=== PATIENT | male | born 1940 | race Caucasian/White ===

== ENCOUNTER 2019-09-19 10:54 | Emergency (ER) | payer MEDICARE, BC ==
[~2019-09-19 10:54] MED LIST: CEFP200T PO; EZET10TA20 PO
--- NOTE | 2019-09-19 12:14 | RAD ---
Chest radiograph 09/19/2019 11:54 AM INDICATION: Cough for 3 to 4 weeks COMPARISON: 08/17/2018 TECHNIQUE: Frontal and lateral views of the chest are provided. FINDINGS: The cardiomediastinal silhouette is within normal limits. There are no pleural effusions. There is no pulmonary vascular congestion. There is no pneumothorax. There is a 6 cm nodular opacity in the right lower lobe with possible cavitation and layering fluid or debris. No significant osseous abnormality is identified. IMPRESSION: 6 cm nodular opacity in the right lower lobe with possible cavitation and layering fluid or debris. Recommend CT chest for further evaluation. Electronically signed by: Niki Denson MD (09/19/2019 12:11 PM) [id number]
[2019-09-19] MEDS ORDERED: DOXY100T PO ×2 (12:30→12:38)
--- NOTE | 2019-09-19 12:30 | PHYS DOC ---
Past Medical History Past Medical History: High Cholesterol, Pneumonia Additional Past Medical Histor: GOUT (GEMMA DUMONT APRN) Past Surgical History: Tonsillectomy Additional Past Surgical Histo: SINUS, R.JAW (GEMMA DUMONT APRN) Alcohol Use: None Drug Use: None (GEMMA DUMONT APRN) Adult General Chief Complaint Chief Complaint: COUGH HPI HPI Patient is a 79 year old male, accompanied by his , who presents to the emergency department with complaints of a cough that is worse in the morning for the last 3-4 weeks. Patient states this morning he coughed up some sputum that had bright red blood in it. He denies taking any blood thinners, abdominal pain, nausea, vomiting, diarrhea, chest pain, palpitations, fever, shortness of breath, wheezing, ear pain, dizziness, fatigue, or headache. He does report nasal congestion. He denies any nosebleeds. Patient currently denies any pain at this time.All other ROS is neg unless otherwise noted in HPI. (GEMMA DUMONT APRN) Review of Systems Review of Systems See Above (GEMMA DUMONT APRN) Allergies Allergies Allergies Coded Allergies Type Severity Reaction Last Updated Verified No Known Drug Allergies 08/15/18 No (LUIS ANGEL FIELD DO) Physical Exam Physical Exam See Above Constitutional: Well developed, well nourished, no acute distress, non-toxic a ppearance. [] HENT: Normocephalic, atraumatic, bilateral external ears normal, oropharynx moist, no oral exudates, nasal turbinates erythematous and edematous bilaterally, nose congested Eyes: PERRLA, EOMI, conjunctiva normal, no discharge. [] Neck: Normal range of motion, no tenderness, supple, no stridor. [] Cardiovascular:Heart rate regular rhythm, no murmur [] Lungs & Thorax: Bilateral breath sounds clear to auscultation, Respirations even and unlabored, no retractions, no respiratory distress [] Skin: Warm, dry, no erythema, no rash. [] Back: No tenderness Extremities: No cyanosis, ROM intact, no edema. [] Neurologic: Alert and oriented X 3, no focal deficits noted. [] Psychologic: Affect normal, judgement normal, mood normal. [] (GEMMA DUMONT APRN) Current Patient Data Vital Signs Vital Signs Date Time Temp Pulse Resp B/P (MAP) Pulse Ox O2 Delivery O2 Flow Rate FiO2 09/19/19 12:40 65 20 144/80 (101) 96 Room Air 09/19/19 11:25 97.9 97.9 (LUIS ANGEL FIELD DO) EKG EKG [] (GEMMA DUMONT APRN) Radiology/Procedures Radiology/Procedures PROCEDURE: CHEST PA & LATERAL Chest radiograph 09/19/2019 11:54 AM INDICATION: Cough for 3 to 4 weeks COMPARISON: 08/17/2018 TECHNIQUE: Frontal and lateral views of the chest are provided. FINDINGS: The cardiomediastinal silhouette is within normal limits. There are no pleural effusions. There is no pulmonary vascular congestion. There is no pneumothorax. There is a 6 cm nodular opacity in the right lower lobe with possible cavitation and layering fluid or debris. No significant osseous abnormality is identified. IMPRESSION: 6 cm nodular opacity in the right lower lobe with possible cavitation and layering fluid or debris. Recommend CT chest for further evaluation. [] (GEMMA DUMONT APRN) Course & Med Decision Making Course & Med Decision Making Pertinent Labs and Imaging studies reviewed. (See chart for details) Discussed xray results with patient and his and advised of nodule found in right lower lobe, advised pt that he will need to follow up with his primary care doctor for further evaluation of this finding. Prescription written for doxycycline 100 mg po BID x10 days. URI instructions given. Pt and his verbalized an understanding of home care, medications, follow- up, and return to ED instructions and were in agreement with the plan of care. [] (GEMMA DUMONT APRN) Dragon Disclaimer Dragon Disclaimer This electronic medical record was generated, in whole or in part, using a voice recognition dictation system. (GEMMA DUMONT APRN) Departure Departure Impression: Primary Impression: Sinusitis Additional Impression: Upper respiratory infection, acute Disposition: 01 HOME, SELF-CARE Condition: STABLE Referrals: Ross POSEY MD (PCP) Patient Instructions: Sinusitis, Elao-ej-Qedr, Upper Respiratory Infection, Adult, Fkla-yv-Mhpv Additional Instructions: Fill prescription(s) and use as directed. Recommend use of a Cool mist humidifier in room at bedtime. Alternate Tylenol or ibuprofen as needed for pain/fever. Recommend use of lzbu-cfr-sodzzxb Flonase nasal spray, 2 sprays each side of her nose once in the morning to help decreased nasal inflammation. Increase clear fluids. Avoid airway triggers such as smoke, fragrance, dust, and pollen. May take azzy-xej-lrtcmzp cough suppressants as needed. Follow-up with your primary care doctor if symptoms persist, return to the ER if symptoms worsen. Scripts Doxycycline Hyclate (DOXYCYCLINE HYCLATE) 100 Mg Tablet 1 TAB PO BID, #14 TAB 0 Refills Prov: GEMMA DUMNOT APRN 09/19/19 Attending Signature Attending Signature I have reviewed the PA/PHYSICAL THERAPIST CENTER MANAGER's note and plan of care. I was available for consultation as needed during the patient's visit in the emergency department. I agree with the clinical impression, plan, and disposition. (LUIS ANGEL FIELD DO) Problem Qualifiers Primary Impression: Sinusitis Sinusitis location: unspecified location Chronicity: acute Recurrence: not specified as recurrent Qualified Codes: J01.90 - Acute sinusitis, unspecified GEMMA DUMONT FINGER COBBLER Sep 19, 2019 12:30 LUIS ANGEL FIELD DO Sep 20, 2019 11:06
[2019-09-19 12:40] VITALS: BP 144/80
== END 2019-09-19 12:40 | disposition home or self-care (01) ==
LOC: ER 10:54
DX: J01.90 Acute sinusitis, unspecified (principal); J06.9 Acute upper respiratory infection, unspecified; E78.00 Pure hypercholesterolemia, unspecified; M10.9 Gout, unspecified
CPT/HCPCS: 71046; 99284

== ENCOUNTER → 2019-10-04 | Outpatient (CLI) | payer MEDICARE, BC ==
[2019-09-19 12:40] VITALS: BP 144/80
[~2019-10-04] MED LIST changes: +DOXY100T PO
--- NOTE | 2019-10-04 17:21 | KCIC ---
EXAM: CT OF THE CHEST WITHOUT CONTRAST. HISTORY: Lung nodule, smoking history. TECHNIQUE: Computed tomography of the chest was performed without intravenous contrast. One or more of the following individualized dose reduction techniques were utilized for this examination: 1. Automated exposure control. 2. Adjustment of the mA and/or kV according to patient size. 3. Use of iterative reconstruction technique. COMPARISON: 09/19/2019. FINDINGS: Images of the upper abdomen reveal no acute abnormality. Bone windows reveal no suspicious lesions. There are no pathologically enlarged mediastinal or axillary lymph nodes. Calcified mediastinal lymph nodes are likely secondary to old granulomatous disease. There is no pleural or pericardial effusion. The heart is not enlarged. There are atherosclerotic calcifications of the coronary arteries. A cavitary mass in the right upper lobe bulges the major fissure anteriorly. It measures 4.0 x 2.9 cm and has spiculated margins posteriorly. It contains an intracavitary mass measuring 2.2 cm. There are multiple tiny uncalcified nodules in the upper lobes. One on image 76 in the right upper lobe measures only 3 mm. Another nodule along the right minor fissure measures 6 x 4 mm and likely represents a benign intrafissural lymph node. Another tiny nodule in the left upper lobe measures only 2 mm on image 44. IMPRESSION: 1. 4.0 x 2.9 cm cavitary mass within the right lower lobe is concerning for malignancy. Fungal lesions such as blastomycosis are a less likely possibility. Biopsy is recommended if the diagnosis is not already known. 2. Tiny uncalcified nodules elsewhere are indeterminate and may be postinflammatory. Follow-up is recommended in 3 months. Electronically signed by: Kali Randall MD (10/04/2019 5:18 PM) [facility]
== END | disposition home or self-care (01) ==
LOC: KCIC CT 10:49
PROVIDERS: ATTEND Family Medicine
DX: R91.8 Other nonspecific abnormal finding of lung field (principal)
CPT/HCPCS: 71250

== ENCOUNTER → 2019-12-03 | Outpatient (CLI) | payer MEDICARE, BC ==
--- NOTE | 2019-12-03 09:39 | KCIC ---
Examination: CT CHEST WO CONTRAST History: Cavitary mass follow-up. Comparison/Correlation: 10/04/2019 CT chest without contrast Findings: Axial images of the chest were obtained without contrast. Sagittal and coronal reformatted images were provided. Coronary arterial calcifications are present. Mitral annular calcifications evident. There is a 4.7 cm x 4.2 cm x 5.8 cm longitudinal mass involving the right lower lobe along the posterior margin of the major fissure. This has increased in size since the prior exam. Punctate noncalcified nodules throughout the lung koch bilaterally present without definite change. No enlarged thoracic lymph nodes. The tracheobronchial tree is unremarkable. No pleural or pericardial effusion. The visualized upper abdomen is unremarkable. Bony structures unremarkable. Impression: Interval increase in size of the patient's known right lung base mass lesion. Increase in size is by 1.2 cm x 1.6 cm is noted in the axial plane. Previously seen aerated cavitary component has been obliterated by the mass lesion. While this finding probably represents an infectious process although underlying neoplastic etiology is not excluded. PQRS Compliance Statement: One or more of the following individualized dose reduction techniques were utilized for this examination: 1. Automated exposure control 2. Adjustment of the mA and/or kV according to patient size 3. Use of iterative reconstruction technique Electronically signed by: Avila Byrnes MD (12/03/2019 9:36 AM) [id number]
== END | disposition home or self-care (01) ==
LOC: KCIC CT 08:30
PROVIDERS: ATTEND Internal Medicine Pulmonary Disease
DX: R91.8 Other nonspecific abnormal finding of lung field (principal); I25.10 Atherosclerotic heart disease of native coronary artery without angina pectoris
CPT/HCPCS: 71250

== ENCOUNTER → 2020-03-24 | Outpatient (CLI) | payer MEDICARE, BC ==
--- NOTE | 2020-03-24 11:16 | KCIC ---
CT CHEST WO CONTRAST Indication: Right lower lobe abnormality Technique: Noncontrast CT imaging was performed of the chest, multiplanar reconstruction images submitted. One or more of the following individualized dose reduction techniques were utilized for this examination: 1. Automated exposure control 2. Adjustment of the mA and/or kV according to patient size 3. Use of iterative reconstruction technique. Comparison: December 03, 2019. FINDINGS: There is persistent focus of noncalcified right lower lobe masslike density abutting the major fissure. This measures about 5 cm AP by 3.9 cm transverse by 5.6 cm CC versus previously 4 cm AP by 4.2 cm transverse by about 5.3 cm cc. There are several new larger right lower lobe nodules, largest of these about 0.5 cm. Nodule closer to the larger lesion just posteriorly measures about 0.6 cm versus previously 0.4 cm. There is increased nodularity/node along the right major fissure image 63 up to about 0.7 cm. There are again some tiny micronodules of the right upper lobe in the branching distribution. There is now very minimal dependent right pleural fluid. There is no pneumothorax. There is some coronary calcification. There is again some mitral annular calcification. Tubular ascending thoracic aorta is again somewhat ectatic about 3.8 cm. No new significant lymphadenopathy is identified of the chest. IMPRESSION: 1. There is persistent right lower lobe masslike density abutting the major fissure with some variable change in dimensions as stated, not significantly smaller. There are some new noncalcified right lower lobe nodules as stated, also new very small right pleural effusion. While again findings could be on a postinfectious basis, neoplasm is not excluded by imaging. Consideration of biopsy is advised if this has not been performed. There are again some micronodules of the right upper lobe as seen previously as may be sequela of bronchiolitis from various etiologies. Electronically signed by: Jean-Claude Hill MD (03/24/2020 11:13 AM) [id number]
== END | disposition home or self-care (01) ==
LOC: KCIC 09:50
PROVIDERS: ATTEND Internal Medicine Pulmonary Disease
DX: I77.810 Thoracic aortic ectasia (principal); R91.8 Other nonspecific abnormal finding of lung field; J90 Pleural effusion, not elsewhere classified; J98.4 Other disorders of lung; I25.10 Atherosclerotic heart disease of native coronary artery without angina pectoris
CPT/HCPCS: 71250

== ENCOUNTER → 2020-05-12 | Outpatient (CLI) | payer MEDICARE, BC ==
--- NOTE | 2020-05-12 13:34 | KCIC ---
EXAM: CT Chest without IV contrast INDICATION: Reason: LUNG MASS FOLLOW UP / Spl. Instructions: / History: TECHNIQUE: Multi-detector row CT images were acquired from the thoracic inlet through the upper abdomen without the use of IV contrast. Sagittal and coronal images were acquired from the transaxial data. All CT scans performed at this facility utilize dose optimization techniques as appropriate to the exam, including the following: Automated exposure control and adjustment of the mA and/or KV according to patient size (this includes techniques or standardized protocols for targeted exams where dose is indication/reason for exam). COMPARISON: Noncontrast chest CT 03/24/2020 FINDINGS: The absence of IV contrast limits evaluation of soft tissue pathology. CARDIOVASCULAR: Upper normal ascending thoracic aortic caliber at 3.9 cm. No intramural hematoma. Normal heart size. Mild coronary calcifications. Tortuous descending thoracic aorta. MEDIASTINUM & IRENE: No adenopathy or masses. LUNGS: Dominant left lower lobe spiculated lung mass retracting the major fissure now measures 6.0 x 5.2 x 4.6 cm (cc by mediolateral by AP), compared with 5.6 x 4.7 x 4.9 cm at the comparable levels (images 28 of series 4 and 56 of series 5 this exam compared with image 48 of series 4 and image 81 of series 5 on the prior study). Increase in nodular thickening along the minor fissure is also apparent, best illustrated on coronal image 21 of series 4 this exam compared with image 34 of series 4 on the prior study. 3 mm peripheral left upper lobe lung nodule (image 41 of series 2). Stable micronodules in the right upper lobe as described previously. PLEURAL SPACE: Increasing small right pleural effusion, now up to 3 cm in depth, compared with 0.7 cm previously. OSSEOUS & SOFT TISSUE: Unremarkable ABDOMEN: The visualized portions of the upper abdomen are unremarkable. IMPRESSION: 1. Gradually enlarging right lower lobe lung mass with developing nodular thickening along the minor fissure, and an enlarging right pleural effusion. No developing mediastinal or hilar adenopathy on noncontrast chest CT. 2. Similar-appearing micronodules primarily in the right upper lobe but to a lesser extent, present in the left upper lobe as well. Electronically signed by: Brenton Bonilla MD (05/12/2020 1:32 PM) [place] [id number]
== END ==
LOC: KCIC CT 08:42
PROVIDERS: ATTEND Internal Medicine Pulmonary Disease
DX: R91.8 Other nonspecific abnormal finding of lung field (principal); J90 Pleural effusion, not elsewhere classified
CPT/HCPCS: 71250

== ENCOUNTER 2020-05-25 08:42 | Outpatient (CLI) | payer MEDICARE, BC ==
[2020-05-25] VITALS (12 sets, daily range): BP systolic 93–136; BP diastolic 60–78
[~2020-05-25] VITALS: Ht 182.9 cm; Wt 73.5 kg
[2020-05-25 09:23] LABS: BASO % 1 % (0-3); EOS # 0.1 x10^3/uL (0.0-0.7); EOS % 4 % (0-3); HEMATOCRIT 42.8 % (39.0-53.0); HEMOGLOBIN 14.5 g/dL (13.0-17.5); LYMPH # 0.8 x10^3/uL (1.0-4.8); LYMPH % 21 % (24-48); MEAN CORPUSCULAR HEMOGLOBIN 32 pg (25-35); MEAN CORPUSCULAR HGB CONC 34 g/dL (31-37); MEAN CORPUSCULAR VOLUME 94 fL (79-100); MONO # 0.4 x10^3/uL (0.0-1.1); MONO % 11 % (0-9); NEUT # 2.4 x10^3/uL (1.8-7.7); NEUT % 63 % (31-73); PLATELET COUNT 147 x10^3/uL (140-400); RED BLOOD COUNT 4.57 x10^6/uL (4.30-5.70); RED CELL DISTRIBUTION WIDTH 14.2 % (11.5-14.5); WHITE BLOOD COUNT 3.8 x10^3/uL (4.0-11.0)
[2020-05-25 09:33] LABS: PROTHROMBIN TIME PATIENT 13.1 SEC (11.7-14.0)
[2020-05-25] MEDS ORDERED: LIDOCAINE WITH 8.4% SOD BICARB 3 ML DISP.SYRIN. ONE ×2 (10:40→10:41)
[2020-05-25] MEDS ORDERED: MIDAZOLAM HCL/PF 2 MG/2 ML VIAL. ONE (11:19)
[2020-05-25] MEDS ORDERED: fentaNYL PF VIAL 100 MCG/2 ML VIAL ONE (11:19)
[2020-05-25] MEDS ORDERED: fentaNYL PF VIAL 100 MCG/2 ML VIAL IV ONE (11:45)
[2020-05-25] MEDS ORDERED: MIDAZOLAM HCL/PF 2 MG/2 ML VIAL. IV ONE (11:45)
[2020-05-25] MEDS ORDERED: LIDOCAINE WITH 8.4% SOD BICARB 3 ML DISP.SYRIN. IJ ONE (11:45)
--- NOTE | 2020-05-25 12:29 | RAD ---
05/25/2020 10:23 AM Procedure: CT-guided biopsy, right lower lobe mass Clinical Indication: Right lung mass Discussion: The procedure was explained in its entirety to the patient and his , by myself, including a discussion of the risks, benefits and commonly accepted alternatives to the procedure, as well as the expected consequences of no therapy whatsoever. Discussion of the risks included, but was not limited to, those that are most frequent and those that are rare but possibly severe or life-threatening, as well as the possibility of unforeseen complications. All elements of maximal sterile barrier technique including the use of a cap, mask, sterile gown, sterile gloves, large sterile sheet, appropriate hand hygiene, and 2% chlorhexidine for cutaneous antisepsis (or acceptable alternative antiseptic per current guidelines) were followed for this procedure. CT imaging redemonstrates a rounded mass in the right lower lobe. Associated pleural effusion is seen. The overlying skin was prepped and draped as described. 1% lidocaine was administered for local anesthesia. Under intermittent CT guidance a 17-gauge needles advanced to the mass. Core biopsy samples were obtained and divided amongst formalin and a sterile cup for culture per ordering physician request. Needle was removed. Manual pressure was held. No immediate complications were identified. The procedures performed under conscious sedation including continuous cardiopulmonary monitoring via dedicated sedation nurse. Eswe-cd-xbeb sedation time: 22 minutes Impression: CT-guided biopsy, right lower lobe mass PQRS Compliance Statement: One or more of the following individualized dose reduction techniques were utilized for this examination: 1. Automated exposure control 2. Adjustment of the mA and/or kV according to patient size 3. Use of iterative reconstruction technique
--- NOTE | 2020-05-25 14:31 | RAD ---
EXAM: PORTABLE CHEST 1V INDICATION: Reason: post right lung biopsy / Spl. Instructions: / History: . TECHNIQUE: Single view COMPARISON: 09/19/2019 chest x-ray FINDINGS: The heart size is normal. Great vessels again show tortuosity of the thoracic aorta. There is no hilar or mediastinal mass. Left lung is clear. Right lung shows lower lung volumes with similar opacity in the inferior right lung with additional density along the fissure suggesting a small right pleural effusion. No pneumothorax is however evident. There are no significant osseous abnormalities. IMPRESSION: No evidence of pneumothorax status post right lung biopsy with residual opacity at the right lung base, representing combination of a right lung mass and pleural effusion. Electronically signed by: Brenton Bonilla MD (05/25/2020 2:28 PM) [id number]
--- NOTE | 2020-05-25 14:32 | NUR ---
Discharge Note: RADHA BENITES Discharge instructions and discharge home medications reviewed with Patient and a copy given. All questions have been answered and understanding verbalized. The following instructions and handouts were given: lung biopsy and moderate sedation Discontinued lines and drains: Peripheral IV intact. Patient discharged to Home or Self Care withSpousevia Wheelchair
--- NOTE | 2020-05-29 19:07 | PATHOLOGY ---
[facility] Accession Number: [id number] . 01 Material submitted: . lung - RIGHT LUNG NODULE CORE BIOPSY. Modifiers: right . 01 Clinical history: . RIGHT LUNG NODULE . 02 Diagnosis: Lung tissue, right lung nodule needle biopsies: - ADENOCARCINOMA, MODERATELY TO FOCALLY POORLY DIFFERENTIATED. SEE COMMENT. (JPM:machinist helper marine; 05/29/2020) R 05/29/2020 1829 Local . 02 Comment: Sections of the right lung nodule needle biopsy reveal a malignant epithelial neoplasm. The tumor cells form irregular glandular structures which infiltrate a reactive and inflamed desmoplastic stroma. There is focal papillary clustering and branching of tumor cells within some of the glands. Tumor cells focally are present in solid nests and have a spindle cell appearance. The tumor cells have ample amounts of eosinophilic cytoplasm, and possess enlarged, moderately to focally markedly pleomorphic hyperchromatic nuclei containing prominent nucleoli. Mitotic figures are present. The tumor measures up to 1.2-1.3 cm in greatest dimension on the glass slide. A panel of immunoperoxidase stains is obtained on block A1 and yields the following results: . Cytokeratin 7: Tumor cells positive. Cytokeratin 20: Tumor cells negative. TTF-1: Tumor cells focally positive. Napsin A: Tumor cells focally positive. P40: Tumor cells negative. CK5/6: Tumor cells focally positive. . The morphologic and immunophenotypic findings are supportive of the diagnosis of a moderately to poorly differentiated pulmonary adenocarcinoma. The case is also examined by Dr. Stock, who concurs with the diagnosis. Results to be discussed with Dr Covarrubias. (JPM:ritchie; 05/29/2020) . . Special stains performed: Immunoperoxidase stains performed; CK7, CK20, TTF-1, Napsin A, p40 and CK5/6. . 02 Electronically signed: . Gene Khan MD, Pathologist NPI- [id number] . 01 Gross description: . Received in formalin labeled "Giuseppe Dickinson, right lung biopsy" are three fragments of marcum-white to red-brown soft tissue measuring 0.2-1.3 cm in length and 0.1 cm in diameter. The pieces are submitted in cassettes A1-A3. ([facility]; 05/25/2020) [facility] 05/25/2020 1728 Local . 02 Pathologist provided ICD-10: C34.91 . 02 CPT . 021229, C29508, [id number] Specimen Comment: A courtesy copy of this report has been sent to [phone] Specimen Comment: Report sent to Performed at: 01 [facility] [address], [place] [id number] MD Marcelino Coley MD Phone: [phone] Performed at: 02 [facility] [address] [place], [place] [id number] MD Gene Khan MD Phone: [phone]
== END 2020-05-25 14:20 ==
LOC: INTRAD 08:42
PROVIDERS: ATTEND Internal Medicine Pulmonary Disease
DX: C34.91 Malignant neoplasm of unspecified part of right bronchus or lung (principal); R91.1 Solitary pulmonary nodule; E78.00 Pure hypercholesterolemia, unspecified; Z87.891 Personal history of nicotine dependence; Z79.899 Other long term (current) drug therapy; Z79.01 Long term (current) use of anticoagulants
CPT/HCPCS: 32405; 36415; 71045; 77012; 85025; 85610; 85730; 87071; 87075; 87102; 87116; 99152; J2250; J3010; J3490; 99153

== ENCOUNTER 2020-06-09 11:47 | Outpatient (CLI) | payer MEDICARE, BC ==
[~2020-06-09] VITALS: Ht 185.4 cm; Wt 72.6 kg
[~2020-06-09 11:47] MED LIST changes: -GADOTERATE 7.5 MMOL/15ML VIAL. IVP ONE
[2020-06-09] MEDS ORDERED: LIDOCAINE WITH 8.4% SOD BICARB 3 ML DISP.SYRIN. ONE (11:48)
[2020-06-09] MEDS ORDERED: LIDOCAINE WITH 8.4% SOD BICARB 3 ML DISP.SYRIN. INJ ONE (12:00)
[2020-06-09 12:38] VITALS: BP 135/67
[2020-06-09 12:48] VITALS: BP 135/82
[2020-06-09 12:55] VITALS: BP 132/78
[2020-06-09 13:10] VITALS: BP 125/81
[2020-06-09 13:25] VITALS: BP 117/84
--- NOTE | 2020-06-09 13:40 | NUR ---
pt discharged to home with family in private vehicle. discharge instructions reviewed with pt and family
--- NOTE | 2020-06-09 13:45 | RAD ---
Ultrasound Guided Thoracentesis, right side Indication: Adult male with history of lung cancer and right pleural effusion. Sedation: Local anesthesia only. Sterility: The procedure was performed in its entirety using appropriate elements of sterile technique. Technique and Findings: Following informed consent, the patient was prepped and draped in the usual sterile fashion. Ultrasound interrogation of the area of interest was performed revealing the presence of a pleural fluid collection. 1% Lidocaine was used to achieve local anesthesia over the area of interest. A small dermatotomy was made and a 5F Knp-x-mmhllneo catheter was advanced under ultrasound guidance into the pleural space and 410 cc's of slightly turbid pink fluid was removed. The catheter was then removed and hemostasis was achieved with manual compression. Impression: US thoracentesis as described.
--- NOTE | 2020-06-09 16:39 | RAD ---
CHEST AP ONLY Clinical indications: Status post thoracentesis. Lung infiltrate and effusion. Follow-up study. COMPARISON: May 25, 2020. Findings: Right-sided pleural effusion and right lower lung zone consolidative infiltrate are unchanged. No pneumothorax is seen. Left lung field remains clear. The heart size and mediastinum are stable. Old healed right clavicular fracture is seen. IMPRESSION: No pneumothorax. Electronically signed by: Leonard Eastman MD (06/09/2020 4:36 PM) [id number]
== END 2020-06-09 13:42 | disposition home or self-care (01) ==
LOC: INTRAD 11:47
PROVIDERS: ATTEND Internal Medicine Hematology & Oncology
DX: C34.91 Malignant neoplasm of unspecified part of right bronchus or lung (principal); J90 Pleural effusion, not elsewhere classified; E78.00 Pure hypercholesterolemia, unspecified; Z87.891 Personal history of nicotine dependence; Z85.118 Personal history of other malignant neoplasm of bronchus and lung; Z79.899 Other long term (current) drug therapy
CPT/HCPCS: 32555; 71045; C1892; J3490

== ENCOUNTER → 2020-06-09 | Outpatient (CLI) | payer MEDICARE, BC ==
[2020-05-25 13:39] VITALS: BP 117/71
[~2020-06-09] MED LIST changes: +GADOTERATE 7.5 MMOL/15ML VIAL. IVP ONE
[2020-06-09 11:15] LABS: CREATININE 1.3 mg/dL (0.7-1.3); GFR 53.4
--- NOTE | 2020-06-09 14:37 | RAD ---
MRI of the Brain without and with Contrast 06/09/2020 Clinical History: Lung cancer. Technique: Unenhanced T1-weighted sagittal and axial and FLAIR, T2-weighted, gradient echo and diffusion-weighted axial images of the brain were obtained. After the intravenous administration of 15 cc of DOTAREM, enhanced T1-weighted axial, sagittal and coronal images of the brain were obtained. Findings: There is generalized parenchymal atrophy. Patchy and small focal areas of abnormally increased signal intensity are seen within the periventricular and subcortical white matter of both cerebral hemispheres on the FLAIR and T2-weighted images consistent with areas of small vessel ischemic disease. No acute parenchymal abnormality is seen. No abnormal area of parenchymal contrast enhancement is noted. No extra-axial fluid collection is seen. There is no MRI evidence of acute ischemia/infarction. A small oval-shaped enhancing nodule is seen involving the left internal auditory canal. This measures 4 mm in greatest diameter. 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 The right IAC is within normal limits. Mild mucosal thickening is seen scattered throughout the paranasal sinuses. A 1 cm mucous retention cyst is involving the right maxillary sinus. There are minimal bilateral mastoid effusions. Normal flow voids are seen within the major vascular structures surrounding the brain parenchyma. Impression: 1. A 4 mm enhancing nodule is seen within the left internal auditory canal consistent with a vestibular schwannoma (acoustic neuroma). 2. No acute parenchymal abnormality is seen. There is no MRI evidence of metastatic disease involving the brain parenchyma. Electronically signed by: Wilfredo Hale MD (06/09/2020 2:34 PM) [id number]
--- NOTE | 2020-06-09 17:10 | RAD ---
EXAMINATION: PET W CT SKULL TO MIDTHIGH HISTORY: Lung cancer initial staging COMPARISON/CORRELATION: 05/12/2020 CT chest without contrast FINDINGS: Net dose 12.48 mCi F-18 FDG was administered intravenously for purposes of PET/CT exam. Blood glucose level at the time of radiotracer administration was 79 mg/dL. Imaging was performed from the skull base to the proximal thighs. Hepatic reference uptake is SUV max of 2.4 . Uptake of radiotracer involving the partially visualized head and neck is unremarkable. Uptake is noted diffusely involving the manubrium with SUV max of 6.7. Lytic destructive findings of the manubrium noted. Sternum is intact. Incidental note is made of an old right clavicular fracture. Intense uptake involving the patient's known right lung base mass with SUV max of 10.6. Anterior and superior to this mass, is curvilinear scarring noted with SUV max of 1.7. There is a small focus of uptake anterior thoracic spine on axial image 124 with SUV max of 3.2. This corresponds to a 0.9 cm x 0.6 cm density of indeterminate significance. Moderate-sized right pleural effusion is present. Punctate nodules involving the right lung base again seen. Mild right posterior basilar atelectasis. Minimal punctate nodularity involving the left lateral lung field again seen. Uptake involving the abdomen and pelvis is unremarkable. Small focus of mild uptake involving the right upper pelvis is artifactual in appearance. Right renal lower pole 0.3 cm diameter nonobstructive calculus is present. Abdominal aortic diameter is unremarkable. Diverticulosis of the colon is present. Inguinal hernias containing omental fat. Degenerative changes are noted at multiple levels of the cervical and lumbar spine in particular. IMPRESSION: Intense uptake corresponding to the patient's known right lung basilar mass. Uptake corresponding to the manubrium were permeative destructive findings presumably related to metastasis is present. Small indeterminate focus of borderline uptake is noted anterior to the thoracic spine. Right pleural effusion. Punctate pulmonary nodules are present and unchanged. Nonobstructive left renal calculus. PQRS Compliance Statement: One or more of the following individualized dose reduction techniques were utilized for this examination: 1. Automated exposure control 2. Adjustment of the mA and/or kV according to patient size 3. Use of iterative reconstruction technique Electronically signed by: Avila Byrnes MD (06/09/2020 5:07 PM) [place] [id number]
== END | disposition home or self-care (01) ==
LOC: PETSC 10:21
PROVIDERS: ATTEND Internal Medicine Hematology & Oncology
DX: C34.31 Malignant neoplasm of lower lobe, right bronchus or lung (principal)
CPT/HCPCS: 36415; 70553; 78815; 82565; 84520; A9552; A9575

== ENCOUNTER → 2020-06-26 | Outpatient (CLI) | payer MEDICARE, BC ==
[2020-06-09 13:25] VITALS: BP 117/84
[2020-06-26 10:47] LABS: BASO % 1 % (0-3); EOS # 0.1 x10^3/uL (0.0-0.7); EOS % 2 % (0-3); HEMATOCRIT 43.9 % (39.0-53.0); HEMOGLOBIN 14.5 g/dL (13.0-17.5); LYMPH # 0.8 x10^3/uL (1.0-4.8); LYMPH % 17 % (24-48); MEAN CORPUSCULAR HEMOGLOBIN 31 pg (25-35); MEAN CORPUSCULAR HGB CONC 33 g/dL (31-37); MEAN CORPUSCULAR VOLUME 95 fL (79-100); MONO # 0.5 x10^3/uL (0.0-1.1); MONO % 11 % (0-9); NEUT # 3.2 x10^3/uL (1.8-7.7); NEUT % 70 % (31-73); PLATELET COUNT 154 x10^3/uL (140-400); RED BLOOD COUNT 4.64 x10^6/uL (4.30-5.70); RED CELL DISTRIBUTION WIDTH 13.9 % (11.5-14.5); WHITE BLOOD COUNT 4.5 x10^3/uL (4.0-11.0)
[2020-06-26 10:51] LABS: CALCIUM 8.9 mg/dL (8.5-10.1); CREATININE 1.3 mg/dL (0.7-1.3); GFR 53.4; POTASSIUM 4.4 mmol/L (3.5-5.1)
[2020-06-26 10:57] LABS: ALBUMIN 3.4 g/dL (3.4-5.0); ALBUMIN/GLOBULIN RATIO 0.9 (1.0-1.7); TOTAL BILIRUBIN 0.3 mg/dL (0.2-1.0)
== END ==
LOC: ONCLAB 10:30
PROVIDERS: ATTEND Internal Medicine Hematology & Oncology
DX: C34.31 Malignant neoplasm of lower lobe, right bronchus or lung (principal)
CPT/HCPCS: 36415; 80053; 85025

== ENCOUNTER 2020-07-26 08:32 | Outpatient (CLI) | payer MEDICARE, BC ==
[2020-07-26] VITALS (8 sets, daily range): BP systolic 107–134; BP diastolic 51–85
[~2020-07-26] VITALS: Ht 182.9 cm; Wt 70.3 kg
[2020-07-26] MEDS ORDERED: ceFAZolin SODIUM IV Push 1 GM VIAL. IVP ONE ×2 (08:45→09:17)
[2020-07-26] MEDS ORDERED: fentaNYL PF VIAL 100 MCG/2 ML VIAL IV ONE (09:15)
[2020-07-26] MEDS ORDERED: LIDOCAINE 1%/EPI 1:100,000 20 ML VIAL. SQ ONE (09:15)
[2020-07-26] MEDS ORDERED: MIDAZOLAM HCL/PF 2 MG/2 ML VIAL. IV ONE (09:15)
[2020-07-26] MEDS ORDERED: MIDAZOLAM HCL/PF 2 MG/2 ML VIAL. ONE (09:17)
[2020-07-26] MEDS ORDERED: fentaNYL PF VIAL 100 MCG/2 ML VIAL ONE (09:17)
[2020-07-26 09:28] LABS: CALCIUM 9.3 mg/dL (8.5-10.1); CREATININE 1.1 mg/dL (0.7-1.3); GFR 64.6; POTASSIUM 4.3 mmol/L (3.5-5.1)
[2020-07-26 09:33] LABS: BASO % 1 % (0-3); EOS # 0.1 x10^3/uL (0.0-0.7); EOS % 2 % (0-3); HEMATOCRIT 44.2 % (39.0-53.0); HEMOGLOBIN 14.9 g/dL (13.0-17.5); LYMPH # 0.7 x10^3/uL (1.0-4.8); LYMPH % 15 % (24-48); MEAN CORPUSCULAR HEMOGLOBIN 32 pg (25-35); MEAN CORPUSCULAR HGB CONC 34 g/dL (31-37); MEAN CORPUSCULAR VOLUME 94 fL (79-100); MONO # 0.5 x10^3/uL (0.0-1.1); MONO % 11 % (0-9); NEUT # 3.4 x10^3/uL (1.8-7.7); NEUT % 71 % (31-73); PLATELET COUNT 197 x10^3/uL (140-400); RED CELL DISTRIBUTION WIDTH 14.1 % (11.5-14.5); WHITE BLOOD COUNT 4.8 x10^3/uL (4.0-11.0)
[2020-07-26 09:47] LABS: PROTHROMBIN TIME PATIENT 12.7 SEC (11.7-14.0)
[2020-07-26] MEDS ORDERED: LIDOCAINE 1%/EPI 1:100,000 20 ML VIAL. ONE (09:52)
--- NOTE | 2020-07-26 11:54 | RAD ---
Procedure: Ultrasound and fluoroscopically guided placement of right internal jugular power port.. 07/26/2020 9:50 AM Clinical Indication: Cancer Treatment Sedation: Conscious sedation was administered for 30 minutes. The patient was monitored by a qualified independent observer throughout the time of sedation. Please refer to the medical record for exact doses of medications utilized to achieve moderate sedation. Fluoroscopy time: 0.5 minutes Dose area product: 1 Gycm2 Consent: The procedure was explained in its entirety to the patient or the patients designated instruments sales representative by a member of the treatment team, including a discussion of the risks, benefits and commonly accepted alternatives to the procedure, as well as the expected consequences of no therapy whatsoever. Discussion of the risks included, but was not limited to, those that are most frequent and those that are rare but possibly severe or life-threatening, as well as the possibility of unforeseen complications. Technique and Findings: All elements of maximal sterile barrier technique including the use of a cap, mask, sterile gown, sterile gloves, large sterile sheet, appropriate hand hygiene, and 2% chlorhexidine for cutaneous antisepsis (or acceptable alternative antiseptic per current guidelines) were followed for this procedure. Following informed consent, and a timeout procedure, the patient was prepped and draped in the usual sterile fashion. Ultrasound interrogation of the right neck revealed patency and compressibility of the right internal jugular vein. A 21-gauge micropuncture was then used to gain access to this vein under ultrasound guidance. A hard copy ultrasound image was recorded. The needle was exchanged over a wire for a sheath. A 1 inch incision was made several centimeters inferior to the venotomy site. A catheter was tunneled from this site dermatotomy site in the neck. Catheter was advanced through peel-away sheath such that its tip was in the proximal right atrium with the patient supine. The catheter was trimmed to length and connected to the port reservoir. The port was found to flush and aspirate normally. The wound was closed in layers using 4-0 Vicryl suture. Sterile dressings were applied. Impression: Successful ultrasound and fluoroscopically guided placement of a right internal jugular PowerPort
--- NOTE | 2020-07-26 12:49 | NUR ---
Discharge Note: RADHA BENITES Discharge instructions and discharge home medications reviewed with Spouse and a copy given. All questions have been answered and understanding verbalized. The following instructions and handouts were given: implanted port instructions,adult moderate sedation Discontinued lines and drains: Peripheral IV intact. Patient discharged to Home or Self Care withSpousevia Wheelchair
== END 2020-07-26 12:45 | disposition home or self-care (01) ==
LOC: INTRAD 08:32
PROVIDERS: ATTEND Internal Medicine Hematology & Oncology
DX: C34.31 Malignant neoplasm of lower lobe, right bronchus or lung (principal); E78.00 Pure hypercholesterolemia, unspecified; M19.90 Unspecified osteoarthritis, unspecified site; Z85.46 Personal history of malignant neoplasm of prostate; Z87.891 Personal history of nicotine dependence; Z79.899 Other long term (current) drug therapy; Z98.890 Other specified postprocedural states
CPT/HCPCS: 36415; 36561; 76937; 77001; 80048; 85025; 85610; 99152; 99153; C1751; C1892; J0690; J2250; J3010; J3490

== ENCOUNTER → 2020-07-27 | Outpatient (CLI) | payer MEDICARE, BC ==
[2020-07-26 12:30] VITALS: BP 129/85
[2020-07-27 08:51] LABS: BASO % 1 % (0-3); CALCIUM 9.2 mg/dL (8.5-10.1); CREATININE 1.2 mg/dL (0.7-1.3); EOS # 0.1 x10^3/uL (0.0-0.7); EOS % 2 % (0-3); GFR 58.4; HEMATOCRIT 43.6 % (39.0-53.0); HEMOGLOBIN 14.8 g/dL (13.0-17.5); LYMPH # 0.8 x10^3/uL (1.0-4.8); LYMPH % 16 % (24-48); MEAN CORPUSCULAR HEMOGLOBIN 32 pg (25-35); MEAN CORPUSCULAR HGB CONC 34 g/dL (31-37); MEAN CORPUSCULAR VOLUME 94 fL (79-100); MONO # 0.6 x10^3/uL (0.0-1.1); MONO % 11 % (0-9); NEUT # 3.4 x10^3/uL (1.8-7.7); NEUT % 70 % (31-73); PLATELET COUNT 191 x10^3/uL (140-400); POTASSIUM 3.9 mmol/L (3.5-5.1); RED BLOOD COUNT 4.66 x10^6/uL (4.30-5.70); RED CELL DISTRIBUTION WIDTH 13.7 % (11.5-14.5); WHITE BLOOD COUNT 4.9 x10^3/uL (4.0-11.0)
[2020-07-27 08:57] LABS: ALBUMIN 3.3 g/dL (3.4-5.0); ALBUMIN/GLOBULIN RATIO 0.8 (1.0-1.7); TOTAL BILIRUBIN 0.5 mg/dL (0.2-1.0); TOTAL PROTEIN 7.2 g/dL (6.4-8.2)
[2020-07-27 09:57] LABS: FREE T4 1.06 ng/dL (0.76-1.46); THYROID STIM HORMONE (TSH) 2.423 uIU/mL (0.358-3.74)
== END ==
LOC: ONCLAB 08:29
PROVIDERS: ATTEND Internal Medicine Hematology & Oncology
DX: C34.31 Malignant neoplasm of lower lobe, right bronchus or lung (principal); E03.8 Other specified hypothyroidism
CPT/HCPCS: 36415; 80053; 84439; 84443; 85025

== ENCOUNTER 2020-08-16 19:33 | Emergency (ER) | payer MEDICARE, BC ==
[2020-08-11 07:00] VITALS: BP 110/73
[~2020-08-16 19:33] MED LIST changes: +FOLI0.4T2 PO; +MECO10005 PO; +MEMA10TA PO; +OLAN5TAB9 PO; +PANT20TA2 PO
[2020-08-16] MEDS ORDERED: LEVO500T8 PO (23:28)
== END 2020-08-16 19:37 | disposition left against medical advice (07) ==
LOC: ER 19:33
DX: R50.9 Fever, unspecified (principal); Z53.21 Procedure and treatment not carried out due to patient leaving prior to being seen by health care provider

== ENCOUNTER 2020-08-16 21:04 | Emergency (ER) | payer MEDICARE, BC ==
[~2020-08-16] VITALS: Ht 182.9 cm; Wt 72.7 kg
[2020-08-16] MEDS ORDERED: IV NORMAL SALINE 1000ML BAG 1,000 ML IV ONE (22:00)
[2020-08-16] MEDS ORDERED: ACETAMINOPHEN 500 MG TABLET PO ONE (22:00)
--- NOTE | 2020-08-16 22:02 | PHYS DOC ---
Past Medical History Past Medical History: Cancer, High Cholesterol, Pneumonia Additional Past Medical Histor: GOUT, LUNG & PROSTATE CA Past Surgical History: Tonsillectomy Additional Past Surgical Histo: SINUS, R.JAW Smoking Status: Former Smoker Alcohol Use: None Drug Use: None General Adult EDM: Chief Complaint: FEVER HPI: HPI: Patient is a 80 year old male who arrives with chief complaint of fever. Patient's noticed him to be hot this evening and had a temperature of 102. Patient has a history of lung cancer and last received chemo on July 27. Patient is relatively asymptomatic. Patient denies any cough, vomiting, diarrhea or sore throat. Patient denies any urinary difficulties. Patient denies any significant pain. Review of Systems: Review of Systems: Constitutional: Reports fever but no chills Eyes: Denies change in visual acuity. [] HENT: Denies nasal congestion or sore throat. [] Respiratory: Denies cough or shortness of breath. [] Cardiovascular: Denies chest pain or edema. [] GI: Denies abdominal pain, nausea, vomiting, bloody stools or diarrhea. [] : Denies dysuria. [] Musculoskeletal: Denies back pain or joint pain. [] Integument: Denies rash. [] Neurologic: Denies headache, focal weakness or sensory changes. [] Endocrine: Denies polyuria or polydipsia. [] Lymphatic: Denies swollen glands. [] Psychiatric: Denies depression or anxiety. [] Heart Score: Risk Factors: Risk Factors: DM, Current or recent (<one month) smoker, HTN, HLP, family history of CAD, obesity. Risk Scores: Score 0 - 3: 2.5% MACE over next 6 weeks - Discharge Home Score 4 - 6: 20.3% MACE over next 6 weeks - Admit for Clinical Observation Score 7 - 10: 72.7% MACE over next 6 weeks - Early Invasive Strategies Current Medications: Current Medications Medications (Trade) Dose Ordered Sig/Rocío Start Time Stop Time Status Last Admin Dose Admin Acetaminophen (Tylenol) 1,000 mg 1X ONCE 08/16/20 22:00 08/16/20 22:01 UNV Sodium Chloride 1,000 ml @ 1,000 mls/hr 1X ONCE 08/16/20 22:00 08/16/20 22:59 UNV Allergies: Allergies: Allergies Coded Allergies Type Severity Reaction Last Updated Verified No Known Drug Allergies 08/15/18 No Physical Exam: PE: Constitutional: Well developed, well nourished, no acute distress, non-toxic appearance. [] HENT: Normocephalic, atraumatic, bilateral external ears normal, no trismus nose normal. [] Eyes: PERRLA, EOMI, conjunctiva normal, no discharge. [] Neck: Normal range of motion, no tenderness, supple, no stridor. [] Cardiovascular:Heart rate regular rhythm, no murmur [] Lungs & Thorax: Bilateral breath sounds clear to auscultation [] port to the right of the chest wall is without erythema or warmth Abdomen: Bowel sounds normal, soft, no tenderness, no masses, no pulsatile masses. [] Skin: Warm, dry, no erythema, no rash. [] Back: No tenderness, no CVA tenderness. [] Extremities: No tenderness, no cyanosis, no clubbing, ROM intact, no edema. [] Neurologic: Alert and oriented X 3, normal motor function, normal sensory function, no focal deficits noted. [] Psychologic: Affect normal, judgement normal, mood normal. [] Current Patient Data: Labs: Laboratory Tests Test 08/16/20 22:08 08/16/20 23:07 White Blood Count 4.1 x10^3/uL Red Blood Count 4.30 x10^6/uL Hemoglobin 13.7 g/dL Hematocrit 39.8 % Mean Corpuscular Volume 93 fL Mean Corpuscular Hemoglobin 32 pg Mean Corpuscular Hemoglobin Concent 34 g/dL Red Cell Distribution Width 14.0 % Platelet Count 254 x10^3/uL Neutrophils (%) (Auto) 71 % Lymphocytes (%) (Auto) 13 % Monocytes (%) (Auto) 16 % Eosinophils (%) (Auto) 0 % Basophils (%) (Auto) 0 % Neutrophils # (Auto) 2.9 x10^3/uL Lymphocytes # (Auto) 0.5 x10^3/uL Monocytes # (Auto) 0.6 x10^3/uL Eosinophils # (Auto) 0.0 x10^3/uL Basophils # (Auto) 0.0 x10^3/uL Sodium Level 137 mmol/L Potassium Level 4.1 mmol/L Chloride Level 97 mmol/L Carbon Dioxide Level 30 mmol/L Anion Gap 10 Blood Urea Nitrogen 19 mg/dL Creatinine 1.5 mg/dL Estimated GFR (Cockcroft-Gault) 45.1 BUN/Creatinine Ratio 13 Glucose Level 104 mg/dL Lactic Acid Level 0.6 mmol/L Calcium Level 8.8 mg/dL Total Bilirubin 0.3 mg/dL Aspartate Amino Transf (AST/SGOT) 35 U/L Alanine Aminotransferase (ALT/SGPT) 30 U/L Alkaline Phosphatase 112 U/L Total Protein 7.4 g/dL Albumin 3.4 g/dL Albumin/Globulin Ratio 0.9 Urine Collection Type Unknown Urine Color Yellow Urine Clarity Clear Urine pH 6.0 Urine Specific [place] 1.025 Urine Protein Negative mg/dL Urine Glucose (UA) Negative mg/dL Urine Ketones (Stick) Negative mg/dL Urine Blood Trace Urine Nitrite Negative Urine Bilirubin Negative Urine Urobilinogen Dipstick 0.2 mg/dL Urine Leukocyte Esterase Negative Urine RBC 1-2 /HPF Urine WBC Occ /HPF Urine Squamous Epithelial Cells Occ /LPF Urine Bacteria 0 /HPF Urine Mucus Mod /LPF Current Medications Medications (Trade) Dose Ordered Sig/Rocío Route PRN Reason Start Time Stop Time Status Last Admin Dose Admin Acetaminophen (Tylenol) 1,000 mg 1X ONCE PO 08/16/20 22:00 08/16/20 22:01 DC 08/16/20 22:47 Sodium Chloride 1,000 ml @ 1,000 mls/hr 1X ONCE IV 08/16/20 22:00 08/16/20 22:59 DC 08/16/20 22:50 Vital Signs: Vital Signs Date Time Temp Pulse Resp B/P (MAP) Pulse Ox O2 Delivery O2 Flow Rate FiO2 08/16/20 21:33 102.4 84 18 139/86 (103) 93 Room Air 102.4 EKG: EKG: [] Radiology/Procedures: Radiology/Procedures: [][facility] [address] [place], [place] [id number] IMAGING REPORT Signed PATIENT: RADHA BENITESCCOUNT: [id number] : 1940 LOCATION: ER AGE: 80 SEX: M EXAM STATUS: REG ER ORD. PHYSICIAN: XIMENA BANEGAS MD REASON: fever, HX of right side Lung CA PROCEDURE: PORTABLE CHEST 1V Exam: Chest one view INDICATION: Fever, history of right-sided lung cancer TECHNIQUE: Frontal view of the chest Comparisons: 08/09/2020 FINDINGS: Right anterior chest wall port with catheter tip at the SVC. The cardiomediastinal silhouette and pulmonary vessels are within normal limits. There is opacification of the right lung base, similar prior. Hazy opacity at the right midlung. IMPRESSION: No significant change compared to the prior exam. Postobstructive infectious process in the right lower lung is difficult to exclude. Electronically signed by: Mari Chaves MD (08/16/2020 10:43 PM) [facility] DICTATED and SIGNED BY: MARI CHAVES MD DATE: 08/16/20 [id number] 0 Course & Med Decision Making: Course & Med Decision Making Pertinent Labs and Imaging studies reviewed. (See chart for details) [] 80-year-old male presents with fever. Patient has a history of lung cancer is on chemotherapy. Patient looks great clinically and has no obvious source of the infection. Patient is not neutropenic. I discussed the case with his oncologist, who agrees with the plan of Levaquin and follow-up. Patient is excited to go home. Return precautions given. Dragon Disclaimer: Valentino Disclaimer: This electronic medical record was generated, in whole or in part, using a voice recognition dictation system. Departure Departure Impression: Primary Impression: Fever Additional Impression: Lung cancer Disposition: 01 DC HOME SELF CARE/HOMELESS Condition: STABLE Referrals: QING WEBBER MD (PCP) JULIETTE THOMAS MD 1-2 days Patient Instructions: Fever Additional Instructions: EMERGENCY DEPARTMENT GENERAL DISCHARGE INSTRUCTIONS THANK YOU for coming to [facility] Emergency Department (ED) today and trusting us with your care. We trust that you had a positive experience in our Emergency Department. If you wish to speak to the department Management you can contact the threshing department supervisor at . YOUR FOLLOW UP INSTRUCTIONS ARE FOLLOWS: Do you have a private doctor? If you do not have a private doctor, please ask for a resource list of physicians or clinics that may be able to assist you with follow up ca re. The Emergency Physician has interpreted your x-rays. The X-ray specialist will also review them. If there is a change in the findings you will be notified in 48 hours when at all possible. A lab test or lab culture may have been done, your results will be reviewed and you will be notified if you need a change in treatment. ADDITIONAL INSTRUCTIONS AND INFORMATION Your care today has been supervised by a physician who is specially trained in emergency care. Many problems require more than one evaluation for a complete diagnosis and treatment. We recommend that you schedule your follow up appointment as recommended to ensure complete treatment of your illness or injury. If you are unable to obtain follow up care and continue to have a problem, or if your condition worsens we recommend that you return to the ED. We are not able to safely determine your condition over the phone nor are we able to give sound medical advice over the phone. For these safety reasons, if you call for medical advice we will ask you to come to the ED for further evaluation If you have any questions regarding these discharge instructions please call the ED at . SAFETY INFORMATION In the interest of safety, wellness, and injury prevention; we encourage you to wear your seatbelt, if you smoke; quit smoking, and we encourage your family to use protective helmet for bicycling and other sporting events that present an increased risk for head injury. IF YOUR SYMPTOMS WORSEN OR NEW SYMPTOMS DEVELOP, OR YOU HAVE CONCERNS ABOUT YOUR CONDITION; OR IF YOUR CONDITION WORSENS WHILE YOU ARE WAITING FOR YOUR FOLLOW UP APPOINTMENT; EITHER CONTACT YOUR PRIMARY CARE DOCTOR, THE PHYSICIAN WHOSE NAME AND NUMBER YOU WERE GIVEN, OR RETURN TO THE ED IMMEDIATELY. Scripts Levofloxacin (LEVOFLOXACIN) 500 Mg Tablet 1 TAB PO DAILY, #10 TAB Prov: XIMENA BANEGAS MD 08/16/20 XIMNEA BANEGAS MD Aug 16, 2020 22:02
[2020-08-16 22:15] LABS: BASO % 0 % (0-3); EOS % 0 % (0-3); HEMATOCRIT 39.8 % (39.0-53.0); HEMOGLOBIN 13.7 g/dL (13.0-17.5); LYMPH # 0.5 x10^3/uL (1.0-4.8); LYMPH % 13 % (24-48); MEAN CORPUSCULAR HEMOGLOBIN 32 pg (25-35); MEAN CORPUSCULAR HGB CONC 34 g/dL (31-37); MEAN CORPUSCULAR VOLUME 93 fL (79-100); MONO # 0.6 x10^3/uL (0.0-1.1); MONO % 16 % (0-9); NEUT # 2.9 x10^3/uL (1.8-7.7); NEUT % 71 % (31-73); PLATELET COUNT 254 x10^3/uL (140-400); WHITE BLOOD COUNT 4.1 x10^3/uL (4.0-11.0)
[2020-08-16 22:28] LABS: CALCIUM 8.8 mg/dL (8.5-10.1); CREATININE 1.5 mg/dL (0.7-1.3); GFR 45.1; POTASSIUM 4.1 mmol/L (3.5-5.1)
[2020-08-16 22:43] LABS: ALBUMIN 3.4 g/dL (3.4-5.0); ALBUMIN/GLOBULIN RATIO 0.9 (1.0-1.7); TOTAL BILIRUBIN 0.3 mg/dL (0.2-1.0); TOTAL PROTEIN 7.4 g/dL (6.4-8.2)
--- NOTE | 2020-08-16 22:46 | RAD ---
Exam: Chest one view INDICATION: Fever, history of right-sided lung cancer TECHNIQUE: Frontal view of the chest Comparisons: 08/09/2020 FINDINGS: Right anterior chest wall port with catheter tip at the SVC. The cardiomediastinal silhouette and pulmonary vessels are within normal limits. There is opacification of the right lung base, similar prior. Hazy opacity at the right midlung. IMPRESSION: No significant change compared to the prior exam. Postobstructive infectious process in the right lower lung is difficult to exclude. Electronically signed by: Mari Barrera MD (08/16/2020 10:43 PM) [facility]
[2020-08-16 23:15] LABS: BILIRUBIN,URINE NEGATIVE (NEG); CLARITY,URINE CLEAR; COLOR,URINE YELLOW; NITRITE,URINE NEGATIVE (NEG); PROTEIN,URINE NEGATIVE (NEG-TRACE); UROBILINOGEN,URINE 0.2 mg/dL (0.2 mg/dL)
[2020-08-16 23:22] LABS: BACTERIA,URINE 0 /HPF (0-FEW); WBC,URINE OCC /HPF (0-4)
[2020-08-16] MEDS ORDERED: LEVO500T8 PO (23:28)
[2020-08-16 23:53] VITALS: BP 96/65
== END 2020-08-17 00:15 | disposition home or self-care (01) ==
LOC: ER 21:04
DX: R50.9 Fever, unspecified (principal); C34.91 Malignant neoplasm of unspecified part of right bronchus or lung; C79.82 Secondary malignant neoplasm of genital organs; E78.00 Pure hypercholesterolemia, unspecified; M10.9 Gout, unspecified; Z87.891 Personal history of nicotine dependence
CPT/HCPCS: 36415; 71045; 80053; 81001; 83605; 85025; 87040; 96360; 99285; J7030

== ENCOUNTER 2020-08-22 23:24 | Emergency (ER) | payer MEDICARE, BC ==
[~2020-08-22] VITALS: Ht 182.9 cm; Wt 72.0 kg
[~2020-08-22 23:24] MED LIST changes: +AMOX1TAB11 PO; +LEVO500T8 PO
[2020-08-23 00:35] LABS: BASO % 0 % (0-3); EOS % 0 % (0-3); HEMATOCRIT 35.7 % (39.0-53.0); HEMOGLOBIN 12.3 g/dL (13.0-17.5); LYMPH # 0.5 x10^3/uL (1.0-4.8); LYMPH % 6 % (24-48); MEAN CORPUSCULAR HEMOGLOBIN 32 pg (25-35); MEAN CORPUSCULAR HGB CONC 34 g/dL (31-37); MEAN CORPUSCULAR VOLUME 92 fL (79-100); MONO # 1.3 x10^3/uL (0.0-1.1); MONO % 15 % (0-9); NEUT # 6.8 x10^3/uL (1.8-7.7); NEUT % 78 % (31-73); PLATELET COUNT 229 x10^3/uL (140-400); RED BLOOD COUNT 3.88 x10^6/uL (4.30-5.70); RED CELL DISTRIBUTION WIDTH 14.5 % (11.5-14.5); WHITE BLOOD COUNT 8.7 x10^3/uL (4.0-11.0)
[2020-08-23 00:46] LABS: CALCIUM 8.3 mg/dL (8.5-10.1); CREATININE 1.3 mg/dL (0.7-1.3); GFR 53.3; POTASSIUM 3.2 mmol/L (3.5-5.1)
[2020-08-23 00:52] LABS: ALBUMIN 2.7 g/dL (3.4-5.0); ALBUMIN/GLOBULIN RATIO 0.6 (1.0-1.7); TOTAL BILIRUBIN 0.4 mg/dL (0.2-1.0); TOTAL PROTEIN 6.9 g/dL (6.4-8.2)
[2020-08-23] MEDS ORDERED: ACETAMINOPHEN 500 MG TABLET PO ONE (00:55)
[2020-08-23 01:21] LABS: INFLUENZA A PATIENT NEGATIVE (NEGATIVE); INFLUENZA B PATIENT NEGATIVE (NEGATIVE)
--- NOTE | 2020-08-23 02:06 | RAD ---
INDICATION: Reason: cough, fever / Spl. Instructions: / History: COMPARISON: August 18, 2020 FINDINGS: Single view of chest obtained. Right-sided port with tip at SVC. Calcific atherosclerosis. Repeat demonstration of focal opacity at the right lower lung as well as suspected pleural effusion which overall is similar to prior. No defi nite new consolidation within the left lung. Old right clavicle fracture with callus formation. IMPRESSION: * Repeat demonstration of right basilar opacity which could be a combination of pleural effusion and adjacent airspace disease from atelectasis or infiltrate. Electronically signed by: Jules Emerson MD (08/23/2020 2:03 AM) [id number]
[2020-08-23 02:21] LABS: BILIRUBIN,URINE NEGATIVE (NEG); CLARITY,URINE CLEAR; COLOR,URINE YELLOW; NITRITE,URINE NEGATIVE (NEG); PROTEIN,URINE 100 mg/dL (NEG-TRACE); UROBILINOGEN,URINE 0.2 mg/dL (0.2 mg/dL)
--- NOTE | 2020-08-23 02:26 | PHYS DOC ---
Past Medical History Past Medical History: Cancer, High Cholesterol, Pneumonia Additional Past Medical Histor: GOUT, LUNG & PROSTATE CA Past Surgical History: Tonsillectomy Additional Past Surgical Histo: SINUS, R.JAW Smoking Status: Former Smoker Alcohol Use: None Drug Use: None General Adult EDM: Chief Complaint: FEVER HPI: HPI: Patient is a 80 year old male who presented to ER for evaluation of fever. Patient had history of lung cancer, under chemo treatment. Patient was seen here on August 16 due to fever, he was admitted to hospital, blood culture came back negative. Patient was tested negative for COVID-19. Patient was discharged home on August 21. Patient came back here tonight because he checked his temperature at home and it was 102 degrees. Patient did not take any medication at home for fever. Patient denies any chest pain, no trouble breathing. Patient denies any abdominal pain, no nausea vomiting. Review of Systems: Review of Systems: Constitutional: Positive for fever or chills. [] Eyes: Denies change in visual acuity. [] HENT: Denies nasal congestion or sore throat. [] Respiratory: Denies cough or shortness of breath. [] Cardiovascular: Denies chest pain or edema. [] GI: Denies abdominal pain, nausea, vomiting, bloody stools or diarrhea. [] : Denies dysuria. [] Musculoskeletal: Denies back pain or joint pain. [] Integument: Denies rash. [] Neurologic: Denies headache, focal weakness or sensory changes. [] Endocrine: Denies polyuria or polydipsia. [] Lymphatic: Denies swollen glands. [] Psychiatric: Denies depression or anxiety. [] Heart Score: Risk Factors: Risk Factors: DM, Current or recent (<one month) smoker, HTN, HLP, family h istory of CAD, obesity. Risk Scores: Score 0 - 3: 2.5% MACE over next 6 weeks - Discharge Home Score 4 - 6: 20.3% MACE over next 6 weeks - Admit for Clinical Observation Score 7 - 10: 72.7% MACE over next 6 weeks - Early Invasive Strategies Current Medications: Current Medications Medications (Trade) Dose Ordered Sig/Rocío Start Time Stop Time Status Last Admin Dose Admin Acetaminophen (Tylenol) 1,000 mg 1X ONCE 08/23/20 00:55 08/23/20 00:56 DC 08/23/20 01:00 1,000 MG Allergies: Allergies: Allergies Coded Allergies Type Severity Reaction Last Updated Verified No Known Drug Allergies 08/15/18 No Physical Exam: PE: Constitutional: Well developed, well nourished, no acute distress, non-toxic appearance. [] HENT: Normocephalic, atraumatic, bilateral external ears normal, oropharynx moist, no oral exudates, nose normal. [] Eyes: PERRLA, EOMI, conjunctiva normal, no discharge. [] Neck: Normal range of motion, no tenderness, supple, no stridor. [] Cardiovascular:Heart rate regular rhythm, no murmur [] Lungs & Thorax: Bilateral breath sounds clear to auscultation [] Abdomen: Bowel sounds normal, soft, no tenderness, no masses, no pulsatile masses. [] Skin: Warm, dry, no erythema, no rash. [] Back: No tenderness, no CVA tenderness. [] Extremities: No tenderness, no cyanosis, no clubbing, ROM intact, no edema. [] Neurologic: Alert and oriented X 3, normal motor function, normal sensory function, no focal deficits noted. [] Psychologic: Affect normal, judgement normal, mood normal. [] Current Patient Data: Labs: Laboratory Tests Test 08/23/20 00:20 08/23/20 00:47 White Blood Count 8.7 x10^3/uL (4.0-11.0) Red Blood Count 3.88 x10^6/uL (4.30-5.70) L Hemoglobin 12.3 g/dL (13.0-17.5) L Hematocrit 35.7 % (39.0-53.0) L Mean Corpuscular Volume 92 fL (79-100) Mean Corpuscular Hemoglobin 32 pg (25-35) Mean Corpuscular Hemoglobin Concent 34 g/dL (31-37) Red Cell Distribution Width 14.5 % (11.5-14.5) Platelet Count 229 x10^3/uL (140-400) Neutrophils (%) (Auto) 78 % (31-73) H Lymphocytes (%) (Auto) 6 % (24-48) L Monocytes (%) (Auto) 15 % (0-9) H Eosinophils (%) (Auto) 0 % (0-3) Basophils (%) (Auto) 0 % (0-3) Neutrophils # (Auto) 6.8 x10^3/uL (1.8-7.7) Lymphocytes # (Auto) 0.5 x10^3/uL (1.0-4.8) L Monocytes # (Auto) 1.3 x10^3/uL (0.0-1.1) H Eosinophils # (Auto) 0.0 x10^3/uL (0.0-0.7) Basophils # (Auto) 0.0 x10^3/uL (0.0-0.2) Sodium Level 139 mmol/L (136-145) Potassium Level 3.2 mmol/L (3.5-5.1) L Chloride Level 103 mmol/L (98-107) Carbon Dioxide Level 28 mmol/L (21-32) Anion Gap 8 (6-14) Blood Urea Nitrogen 15 mg/dL (8-26) Creatinine 1.3 mg/dL (0.7-1.3) Estimated GFR (Cockcroft-Gault) 53.3 BUN/Creatinine Ratio 12 (6-20) Glucose Level 106 mg/dL (70-99) H Lactic Acid Level 1.2 mmol/L (0.4-2.0) Calcium Level 8.3 mg/dL (8.5-10.1) L Magnesium Level 2.2 mg/dL (1.8-2.4) Total Bilirubin 0.4 mg/dL (0.2-1.0) Aspartate Amino Transferase (AST) 56 U/L (15-37) H Alanine Aminotransferase (ALT) 38 U/L (16-63) Alkaline Phosphatase 87 U/L (46-116) Troponin I Quantitative 0.028 ng/mL (0.000-0.055) Total Protein 6.9 g/dL (6.4-8.2) Albumin 2.7 g/dL (3.4-5.0) L Albumin/Globulin Ratio 0.6 (1.0-1.7) L Influenza Type A Antigen Negative (NEGATIVE) Influenza Type B Antigen Negative (NEGATIVE) Laboratory Tests 08/23/20 00:20 Laboratory Tests 08/23/20 00:20 Vital Signs: Vital Signs Date Time Temp Pulse Resp B/P (MAP) Pulse Ox O2 Delivery O2 Flow Rate FiO2 08/23/20 02:13 99.6 99.6 08/23/20 00:41 104 27 114/70 (74) 97 Room Air EKG: EKG: [] Radiology/Procedures: Radiology/Procedures: [][facility] [address] [place] [address] IMAGING REPORT Signed PATIENT: RADHA BENITES WACCOUNT: [id number] : 1940 LOCATION: ER AGE: 80 SEX: M EXAM STATUS: REG ER ORD. PHYSICIAN: JUANITA VALENCIA DO REASON: cough, fever PROCEDURE: CHEST AP ONLY INDICATION: Reason: cough, fever / Spl. Instructions: / History: COMPARISON: August 18, 2020 FINDINGS: Single view of chest obtained. Right-sided port with tip at SVC. Calcific atherosclerosis. Repeat demonstration of focal opacity at the right lower lung as well as suspected pleural effusion which overall is similar to prior. No definite new consolidation within the left lung. Old right clavicle fracture with callus formation. IMPRESSION: * Repeat demonstration of right basilar opacity which could be a combination of pleural effusion and adjacent airspace disease from atelectasis or infiltrate. Electronically signed by: Royer Ybarra MD (08/23/2020 2:03 AM) [id number] DICTATED and SIGNED BY: ROYER YBARRA MD DATE: 08/23/20 [id number] 0 Course & Med Decision Making: Course & Med Decision Making Pertinent Labs and Imaging studies reviewed. (See chart for details) Patient is a 80-year-old male with history of lung cancer, currently under chemo treatment, presented to ER with fever, his vital signs were stable, chest x-ray did not show any acute changes, patient was pancultured, COVID-19 test pending, rapid influenza test came back negative, patient would like to go home, he is scheduled to see his family physician today. [place] Disclaimer: Valentino Disclaimer: This electronic medical record was generated, in whole or in part, using a voice recognition dictation system. Departure Departure Impression: Primary Impression: Fever Disposition: 01 DC HOME SELF CARE/HOMELESS Condition: IMPROVED Referrals: QING WEBBER MD (PCP) follow up with your doctor as scheduled today. Patient Instructions: Fever Additional Instructions: Thank you for visiting our Emergency Department. We appreciate you trusting us with your care. If any additional problems come up don't hesitate to return to visit us. Please follow up with your primary care provider so they can plan add itional care if needed and know about the problem that you had. If symptoms worsen come back to the Emergency Department. Any concerning symptoms that start such as chest pain, shortness of air, weakness or numbness on one side of the body, running high fevers or any other concerning symptoms return to the ER. JUANITA VALENCIA DO Aug 23, 2020 02:26
[2020-08-23 02:39] LABS: BACTERIA,URINE 0 /HPF (0-FEW); WBC,URINE OCC /HPF (0-4)
[2020-08-23] MEDS ORDERED: POTASSIUM CHLORIDE 10 MEQ TABLET.ER. PO ONE (03:00)
[2020-08-23 03:02] VITALS: BP 107/70
--- NOTE | 2020-08-25 11:08 | NUR ---
IP: Informed pt of negative COVID test. pt verbalized understanding.
== END 2020-08-23 03:11 | disposition home or self-care (01) ==
LOC: ER 23:24
DX: R50.9 Fever, unspecified (principal); Z20.828 Contact with and (suspected) exposure to other viral communicable diseases; E78.00 Pure hypercholesterolemia, unspecified; M10.9 Gout, unspecified; Z87.891 Personal history of nicotine dependence
CPT/HCPCS: 36415; 71045; 80053; 81001; 83605; 83735; 84484; 85025; 87040; 87804; 99284; C9803; U0003; 99285

== ENCOUNTER → 2020-08-28 | Outpatient (CLI) | payer MEDICARE, BC ==
[2020-08-23 03:02] VITALS: BP 107/70
[2020-08-28 10:57] LABS: BASO % 0 % (0-3); EOS % 0 % (0-3); HEMATOCRIT 35.1 % (39.0-53.0); HEMOGLOBIN 11.9 g/dL (13.0-17.5); LYMPH # 0.5 x10^3/uL (1.0-4.8); LYMPH % 3 % (24-48); MEAN CORPUSCULAR HEMOGLOBIN 31 pg (25-35); MEAN CORPUSCULAR HGB CONC 34 g/dL (31-37); MEAN CORPUSCULAR VOLUME 92 fL (79-100); MONO # 1.1 x10^3/uL (0.0-1.1); MONO % 7 % (0-9); NEUT # 13.7 x10^3/uL (1.8-7.7); NEUT % 89 % (31-73); PLATELET COUNT 399 x10^3/uL (140-400); RED BLOOD COUNT 3.81 x10^6/uL (4.30-5.70); RED CELL DISTRIBUTION WIDTH 14.6 % (11.5-14.5); WHITE BLOOD COUNT 15.4 x10^3/uL (4.0-11.0)
[2020-08-28 11:13] LABS: CALCIUM 8.4 mg/dL (8.5-10.1); CREATININE 1.3 mg/dL (0.7-1.3); GFR 53.3; POTASSIUM 3.7 mmol/L (3.5-5.1)
[2020-08-28 11:19] LABS: ALBUMIN 2.2 g/dL (3.4-5.0); ALBUMIN/GLOBULIN RATIO 0.5 (1.0-1.7); TOTAL BILIRUBIN 0.4 mg/dL (0.2-1.0); TOTAL PROTEIN 6.7 g/dL (6.4-8.2)
[2020-08-28 13:46] LABS: % BANDS 1 % (0-9); % LYMPHS 2 % (24-48); % METAS 1 % (0-0); % MONOS 6 % (0-10); % SEGS 90 % (35-66)
[2020-08-28 13:47] LABS: PLT ESTIMATE ADEQUATE (ADEQUATE)
== END ==
LOC: ONCLAB 08:11
PROVIDERS: ATTEND Internal Medicine Hematology & Oncology
DX: C34.31 Malignant neoplasm of lower lobe, right bronchus or lung (principal)
CPT/HCPCS: 36415; 80053; 85007; 85025

== ENCOUNTER → 2020-09-11 | Outpatient (CLI) | payer MEDICARE, BC ==
[2020-08-23 03:02] VITALS: BP 107/70
[~2020-09-11] MED LIST changes: +CALC-299 PO; +DONE10TA7 PO; +DONE5TAB7 PO; -FOLI0.4T2 PO; +FOLI0.4T5 PO; +PRED-220 PO
[2020-09-11 10:21] LABS: BASO % 1 % (0-3); EOS % 0 % (0-3); HEMATOCRIT 36.9 % (39.0-53.0); HEMOGLOBIN 11.8 g/dL (13.0-17.5); LYMPH # 0.8 x10^3/uL (1.0-4.8); LYMPH % 8 % (24-48); MEAN CORPUSCULAR HEMOGLOBIN 30 pg (25-35); MEAN CORPUSCULAR HGB CONC 32 g/dL (31-37); MEAN CORPUSCULAR VOLUME 93 fL (79-100); MONO # 0.8 x10^3/uL (0.0-1.1); MONO % 8 % (0-9); NEUT # 8.1 x10^3/uL (1.8-7.7); NEUT % 83 % (31-73); PLATELET COUNT 427 x10^3/uL (140-400); RED BLOOD COUNT 3.97 x10^6/uL (4.30-5.70); WHITE BLOOD COUNT 9.7 x10^3/uL (4.0-11.0)
[2020-09-11 10:33] LABS: CALCIUM 8.5 mg/dL (8.5-10.1); CREATININE 1.1 mg/dL (0.7-1.3); GFR 64.6; POTASSIUM 3.8 mmol/L (3.5-5.1)
[2020-09-11 10:41] LABS: ALBUMIN 2.5 g/dL (3.4-5.0); ALBUMIN/GLOBULIN RATIO 0.6 (1.0-1.7); TOTAL BILIRUBIN 0.3 mg/dL (0.2-1.0)
== END ==
LOC: ONCLAB 10:06
PROVIDERS: ATTEND Internal Medicine Hematology & Oncology
DX: C34.31 Malignant neoplasm of lower lobe, right bronchus or lung (principal)
CPT/HCPCS: 36415; 80053; 85025

== ENCOUNTER → 2020-09-15 | Outpatient (CLI) | payer MEDICARE, BC ==
[2020-08-23 03:02] VITALS: BP 107/70
--- NOTE | 2020-09-15 12:51 | KCIC ---
EXAM: Chest, 2 views. HISTORY: Pleural effusion. COMPARISON: 06/23/2020 FINDINGS: 2 views of the chest are obtained. There has been no change in a moderate right pleural eff usion and right perihilar and infrahilar infiltrate, atelectasis or scarring. There is a stable promi nent cardiac silhouette. There is a port catheter with the tip in the superior cavoatrial junction. T here is no pneumothorax. IMPRESSION: 1. Stable moderate right pleural effusion and right mid and lower lung atelectasis, infiltrate or sca rring. The previously demonstrated right lung base mass on the CT dated 06/09/2020 is not well seen ra diographically. 2. Stable prominent cardiac silhouette. Electronically signed by: Hortencia Zamarripa MD (09/15/2020 12:44 PM) [id number]
== END ==
LOC: KCIC 11:33
PROVIDERS: ATTEND Internal Medicine Pulmonary Disease
DX: J90 Pleural effusion, not elsewhere classified (principal); J98.11 Atelectasis; R91.1 Solitary pulmonary nodule
CPT/HCPCS: 71046

== ENCOUNTER → 2020-09-19 | Outpatient (CLI) | payer MEDICARE, BC ==
[2020-08-23 03:02] VITALS: BP 107/70
[2020-09-19 08:49] LABS: BASO # 0.1 x10^3/uL (0.0-0.2); BASO % 1 % (0-3); EOS # 0.2 x10^3/uL (0.0-0.7); EOS % 3 % (0-3); HEMATOCRIT 35.6 % (39.0-53.0); HEMOGLOBIN 11.7 g/dL (13.0-17.5); LYMPH # 1.2 x10^3/uL (1.0-4.8); LYMPH % 19 % (24-48); MEAN CORPUSCULAR HEMOGLOBIN 31 pg (25-35); MEAN CORPUSCULAR HGB CONC 33 g/dL (31-37); MEAN CORPUSCULAR VOLUME 93 fL (79-100); MONO # 0.8 x10^3/uL (0.0-1.1); MONO % 13 % (0-9); NEUT # 3.9 x10^3/uL (1.8-7.7); NEUT % 64 % (31-73); PLATELET COUNT 375 x10^3/uL (140-400); RED BLOOD COUNT 3.84 x10^6/uL (4.30-5.70); RED CELL DISTRIBUTION WIDTH 16.4 % (11.5-14.5); WHITE BLOOD COUNT 6.1 x10^3/uL (4.0-11.0)
[2020-09-19 09:09] LABS: CALCIUM 8.4 mg/dL (8.5-10.1); CREATININE 1.3 mg/dL (0.7-1.3); GFR 53.3
[2020-09-19 09:15] LABS: ALBUMIN 2.4 g/dL (3.4-5.0); ALBUMIN/GLOBULIN RATIO 0.5 (1.0-1.7); TOTAL BILIRUBIN 0.3 mg/dL (0.2-1.0); TOTAL PROTEIN 6.8 g/dL (6.4-8.2)
== END ==
LOC: ONCLAB 08:39
PROVIDERS: ATTEND Internal Medicine Hematology & Oncology
DX: C34.31 Malignant neoplasm of lower lobe, right bronchus or lung (principal)
CPT/HCPCS: 36415; 80053; 85025

== ENCOUNTER → 2020-09-26 | Outpatient (CLI) | payer MEDICARE, BC ==
[2020-09-26 08:54] LABS: BASO % 1 % (0-3); EOS # 0.1 x10^3/uL (0.0-0.7); EOS % 3 % (0-3); HEMATOCRIT 36.2 % (39.0-53.0); HEMOGLOBIN 11.9 g/dL (13.0-17.5); LYMPH # 0.7 x10^3/uL (1.0-4.8); LYMPH % 25 % (24-48); MEAN CORPUSCULAR HEMOGLOBIN 30 pg (25-35); MEAN CORPUSCULAR HGB CONC 33 g/dL (31-37); MEAN CORPUSCULAR VOLUME 92 fL (79-100); MONO # 0.2 x10^3/uL (0.0-1.1); MONO % 6 % (0-9); NEUT # 1.8 x10^3/uL (1.8-7.7); NEUT % 65 % (31-73); PLATELET COUNT 237 x10^3/uL (140-400); RED BLOOD COUNT 3.92 x10^6/uL (4.30-5.70); RED CELL DISTRIBUTION WIDTH 16.6 % (11.5-14.5); WHITE BLOOD COUNT 2.8 x10^3/uL (4.0-11.0)
[2020-09-26 09:02] LABS: CALCIUM 8.7 mg/dL (8.5-10.1); CREATININE 1.1 mg/dL (0.7-1.3); GFR 64.6
[2020-09-26 09:07] LABS: ALBUMIN 2.7 g/dL (3.4-5.0); TOTAL PROTEIN 6.9 g/dL (6.4-8.2)
[2020-09-26 09:08] LABS: ALBUMIN/GLOBULIN RATIO 0.6 (1.0-1.7); TOTAL BILIRUBIN 0.4 mg/dL (0.2-1.0)
== END ==
LOC: ONCLAB 08:34
PROVIDERS: ATTEND Physician Assistant
DX: C34.31 Malignant neoplasm of lower lobe, right bronchus or lung (principal)
CPT/HCPCS: 36415; 80053; 85025

== ENCOUNTER → 2020-10-03 | Outpatient (CLI) | payer MEDICARE, BC ==
[2020-10-03 10:44] LABS: BASO % 0 % (0-3); EOS % 1 % (0-3); HEMATOCRIT 32.8 % (39.0-53.0); HEMOGLOBIN 10.9 g/dL (13.0-17.5); LYMPH # 1.2 x10^3/uL (1.0-4.8); LYMPH % 23 % (24-48); MEAN CORPUSCULAR HEMOGLOBIN 31 pg (25-35); MEAN CORPUSCULAR HGB CONC 33 g/dL (31-37); MEAN CORPUSCULAR VOLUME 92 fL (79-100); MONO # 1.1 x10^3/uL (0.0-1.1); MONO % 19 % (0-9); NEUT # 3.2 x10^3/uL (1.8-7.7); NEUT % 57 % (31-73); PLATELET COUNT 119 x10^3/uL (140-400); RED BLOOD COUNT 3.56 x10^6/uL (4.30-5.70); RED CELL DISTRIBUTION WIDTH 16.9 % (11.5-14.5); WHITE BLOOD COUNT 5.5 x10^3/uL (4.0-11.0)
[2020-10-03 11:03] LABS: CALCIUM 8.7 mg/dL (8.5-10.1); CREATININE 1.2 mg/dL (0.7-1.3); GFR 58.4
[2020-10-03 11:09] LABS: ALBUMIN 2.7 g/dL (3.4-5.0); ALBUMIN/GLOBULIN RATIO 0.7 (1.0-1.7); TOTAL BILIRUBIN 0.4 mg/dL (0.2-1.0); TOTAL PROTEIN 6.8 g/dL (6.4-8.2)
== END ==
LOC: ONCLAB 10:24
PROVIDERS: ATTEND Physician Assistant
DX: C34.31 Malignant neoplasm of lower lobe, right bronchus or lung (principal); D70.9 Neutropenia, unspecified
CPT/HCPCS: 36415; 80053; 85025

== ENCOUNTER → 2020-10-10 | Outpatient (CLI) | payer MEDICARE, BC ==
[2020-10-10 11:05] LABS: BASO % 1 % (0-3); EOS % 1 % (0-3); HEMATOCRIT 32.9 % (39.0-53.0); LYMPH # 1.1 x10^3/uL (1.0-4.8); LYMPH % 19 % (24-48); MEAN CORPUSCULAR HEMOGLOBIN 31 pg (25-35); MEAN CORPUSCULAR HGB CONC 34 g/dL (31-37); MEAN CORPUSCULAR VOLUME 94 fL (79-100); MONO # 0.7 x10^3/uL (0.0-1.1); MONO % 12 % (0-9); NEUT # 4.1 x10^3/uL (1.8-7.7); NEUT % 69 % (31-73); PLATELET COUNT 407 x10^3/uL (140-400); RED BLOOD COUNT 3.52 x10^6/uL (4.30-5.70); RED CELL DISTRIBUTION WIDTH 18.5 % (11.5-14.5)
[2020-10-10 11:17] LABS: CREATININE 1.2 mg/dL (0.7-1.3); GFR 58.4; POTASSIUM 3.7 mmol/L (3.5-5.1)
[2020-10-10 11:23] LABS: ALBUMIN 2.6 g/dL (3.4-5.0); ALBUMIN/GLOBULIN RATIO 0.6 (1.0-1.7); TOTAL BILIRUBIN 0.3 mg/dL (0.2-1.0); TOTAL PROTEIN 6.9 g/dL (6.4-8.2)
== END ==
LOC: ONCLAB 10:45
PROVIDERS: ATTEND Internal Medicine Hematology & Oncology
DX: C34.31 Malignant neoplasm of lower lobe, right bronchus or lung (principal)
CPT/HCPCS: 36415; 80053; 85025

== ENCOUNTER → 2020-10-17 | Outpatient (CLI) | payer MEDICARE, BC ==
[~2020-10-17] MED LIST changes: -CALC-299 PO; -DONE10TA7 PO; -DONE5TAB7 PO; +FOLI0.4T2 PO; -FOLI0.4T5 PO; -PRED-220 PO
[2020-10-17 11:20] LABS: BASO % 1 % (0-3); EOS # 0.1 x10^3/uL (0.0-0.7); EOS % 2 % (0-3); HEMATOCRIT 32.4 % (39.0-53.0); HEMOGLOBIN 10.6 g/dL (13.0-17.5); LYMPH # 0.7 x10^3/uL (1.0-4.8); LYMPH % 24 % (24-48); MEAN CORPUSCULAR HEMOGLOBIN 31 pg (25-35); MEAN CORPUSCULAR HGB CONC 33 g/dL (31-37); MEAN CORPUSCULAR VOLUME 95 fL (79-100); MONO # 0.4 x10^3/uL (0.0-1.1); MONO % 12 % (0-9); NEUT # 1.9 x10^3/uL (1.8-7.7); NEUT % 62 % (31-73); PLATELET COUNT 239 x10^3/uL (140-400); RED BLOOD COUNT 3.42 x10^6/uL (4.30-5.70); RED CELL DISTRIBUTION WIDTH 18.8 % (11.5-14.5); WHITE BLOOD COUNT 3.1 x10^3/uL (4.0-11.0)
[2020-10-17 11:37] LABS: CALCIUM 8.7 mg/dL (8.5-10.1); CREATININE 1.1 mg/dL (0.7-1.3); GFR 64.6
[2020-10-17 11:52] LABS: ALBUMIN 2.8 g/dL (3.4-5.0); ALBUMIN/GLOBULIN RATIO 0.7 (1.0-1.7); TOTAL BILIRUBIN 0.3 mg/dL (0.2-1.0); TOTAL PROTEIN 6.6 g/dL (6.4-8.2)
== END ==
LOC: ONCLAB 11:02
PROVIDERS: ATTEND Physician Assistant
DX: C34.31 Malignant neoplasm of lower lobe, right bronchus or lung (principal)
CPT/HCPCS: 36415; 80053; 85025

== ENCOUNTER → 2020-10-31 | Outpatient (CLI) | payer MEDICARE, BC ==
[2020-10-31 11:18] LABS: BASO # 0.1 x10^3/uL (0.0-0.2); BASO % 1 % (0-3); EOS % 0 % (0-3); HEMATOCRIT 49.9 % (39.0-53.0); HEMOGLOBIN 16.6 g/dL (13.0-17.5); LYMPH # 2.6 x10^3/uL (1.0-4.8); LYMPH % 23 % (24-48); MEAN CORPUSCULAR HEMOGLOBIN 30 pg (25-35); MEAN CORPUSCULAR HGB CONC 33 g/dL (31-37); MEAN CORPUSCULAR VOLUME 90 fL (79-100); MONO % 9 % (0-9); NEUT # 7.4 x10^3/uL (1.8-7.7); NEUT % 67 % (31-73); PLATELET COUNT 328 x10^3/uL (140-400); RED BLOOD COUNT 5.57 x10^6/uL (4.30-5.70); RED CELL DISTRIBUTION WIDTH 16.8 % (11.5-14.5); WHITE BLOOD COUNT 11.1 x10^3/uL (4.0-11.0)
[2020-10-31 11:24] LABS: CALCIUM 8.5 mg/dL (8.5-10.1); CREATININE 1.1 mg/dL (0.7-1.3); GFR 64.6; POTASSIUM 3.9 mmol/L (3.5-5.1)
[2020-10-31 11:27] LABS: ALBUMIN 2.8 g/dL (3.4-5.0); ALBUMIN/GLOBULIN RATIO 0.7 (1.0-1.7); TOTAL BILIRUBIN 0.3 mg/dL (0.2-1.0); TOTAL PROTEIN 6.8 g/dL (6.4-8.2)
== END ==
LOC: ONCLAB 10:57
PROVIDERS: ATTEND Internal Medicine Hematology & Oncology
DX: C34.31 Malignant neoplasm of lower lobe, right bronchus or lung (principal); E03.8 Other specified hypothyroidism
CPT/HCPCS: 36415; 80053; 84443; 85025

== ENCOUNTER → 2020-11-17 | Outpatient (CLI) | payer MEDICARE, BC ==
[~2020-11-17] MED LIST changes: +CONTRAST GIVEN. MC PRN; -FOLI0.4T2 PO; +FOLI0.4T5 PO
[2020-11-17] MEDS: IOHEXOL 240 MG/ML 50ML VIAL. PO ONE (10:45)
[2020-11-17] MEDS: IOHEXOL 300 MG/ML 100ML VIAL. IV ONE (10:45)
--- NOTE | 2020-11-17 16:00 | RAD ---
EXAM: Chest, abdomen and pelvis CT with intravenous contrast. HISTORY: Lung cancer restaging. TECHNIQUE: Computed tomographic images of the chest, abdomen and pelvis were obtained following the a dministration of intravenous contrast. Multiplanar reformatting was performed. *One or more of the following individualized dose reduction techniques were utilized for this examina tion: 1. Automated exposure control. 2. Adjustment of the mA and/or kV according to patient size. 3. Use of iterative reconstruction technique. COMPARISON: PET/CT dated 06/09/2020. FINDINGS: Chest: There has been interval increase in a large right pleural effusion. There is masslike right brooks prahilar soft tissue density measuring approximately 2.2 cm transaxially. This may be due to neoplasm or masslike consolidation. There is partial right middle and lower lobe collapse and a suspected par tial lower lobe consolidation containing air bronchograms. This is new compared to the prior exam. Th ere is right paratracheal soft tissue density measuring 3.1 cm, slightly increased compared to the pr ior exam. There are few additional small mediastinal lymph nodes. The heart is normal in size. There is aortic and coronary artery atherosclerosis. There is a right ch est wall port catheter with the tip in expected position. There is no pneumothorax. The left lung is clear. There is no suspicious osseous lesion. There is a comminuted pathologic fracture secondary to a sclerotic lesion involving the manubrium. This is increased compared to the prior exam. Abdomen and pelvis: No hepatic lesion is seen. The gallbladder, pancreas, spleen and adrenal glands a re unremarkable. There is a nonobstructing left renal stone. There is no hydronephrosis. There is mod erate stool throughout the colon. There is no evidence of bowel obstruction. There is sigmoid diverti cula. The bladder is unremarkable. There are small fat-containing inguinal hernias. There is aortobii liac atherosclerosis. No pathologically enlarged lymph node is seen. There is no suspicious osseous l esion. There is degenerative change involving the lumbar spine. IMPRESSION: 1. Increase in a large right pleural effusion and new partial right middle and lower lobe collapse an d suspected consolidation. 2. New right suprahilar mass or masslike consolidation measuring 2.2 cm an increase in a 3.1 cm right paratracheal soft tissue lesion possibly due to a residual metastatic lymph node or residual primary malignancy. 3. 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 The degree of dis traction is increased compared to the prior exam. No additional osseous metastasis is seen. 4. Sigmoid diverticulosis. 5. Left nephrolithiasis. Electronically signed by: Hortencia Zamarripa MD (11/17/2020 3:58 PM) [id number]
== END ==
LOC: CT 09:39
PROVIDERS: ATTEND Physician Assistant
DX: C34.31 Malignant neoplasm of lower lobe, right bronchus or lung (principal); N20.0 Calculus of kidney; K57.30 Diverticulosis of large intestine without perforation or abscess without bleeding
CPT/HCPCS: 71260; 74177; Q9966; Q9967

== ENCOUNTER → 2020-11-21 | Outpatient (CLI) | payer MEDICARE, BC ==
[~2020-11-21] MED LIST changes: -CONTRAST GIVEN. MC PRN
[2020-11-21 11:12] LABS: BASO % 1 % (0-3); EOS # 0.1 x10^3/uL (0.0-0.7); EOS % 2 % (0-3); HEMATOCRIT 33.9 % (39.0-53.0); HEMOGLOBIN 11.2 g/dL (13.0-17.5); LYMPH % 28 % (24-48); MEAN CORPUSCULAR HEMOGLOBIN 33 pg (25-35); MEAN CORPUSCULAR HGB CONC 33 g/dL (31-37); MEAN CORPUSCULAR VOLUME 99 fL (79-100); MONO # 0.6 x10^3/uL (0.0-1.1); MONO % 18 % (0-9); NEUT # 1.8 x10^3/uL (1.8-7.7); NEUT % 52 % (31-73); PLATELET COUNT 203 x10^3/uL (140-400); RED BLOOD COUNT 3.44 x10^6/uL (4.30-5.70); RED CELL DISTRIBUTION WIDTH 21.3 % (11.5-14.5); WHITE BLOOD COUNT 3.5 x10^3/uL (4.0-11.0)
[2020-11-21 11:29] LABS: CALCIUM 8.8 mg/dL (8.5-10.1); CREATININE 1.1 mg/dL (0.7-1.3); GFR 64.6; POTASSIUM 3.8 mmol/L (3.5-5.1)
[2020-11-21 11:35] LABS: ALBUMIN/GLOBULIN RATIO 0.8 (1.0-1.7); TOTAL BILIRUBIN 0.3 mg/dL (0.2-1.0); TOTAL PROTEIN 6.8 g/dL (6.4-8.2)
[2020-11-21 11:39] LABS: ANISOCYTOSIS SLIGHT; PLT ESTIMATE ADEQUATE (ADEQUATE); POLYCHROMASIA SLIGHT
== END ==
LOC: ONCLAB 10:52
PROVIDERS: ATTEND Internal Medicine Hematology & Oncology
DX: C34.31 Malignant neoplasm of lower lobe, right bronchus or lung (principal)
CPT/HCPCS: 36415; 80053; 85025

== ENCOUNTER 2020-11-23 10:08 | Outpatient (CLI) | payer MEDICARE, BC ==
[~2020-11-23] VITALS: Ht 182.9 cm; Wt 70.3 kg
[2020-11-23 11:05] LABS: PROTHROMBIN TIME PATIENT 14.1 SEC (11.7-14.0)
[2020-11-23 11:06] VITALS: BP 121/83
[2020-11-23 11:17] VITALS: BP 113/71
[2020-11-23 11:30] VITALS: BP 115/66
[2020-11-23 11:36] VITALS: BP 128/75
[2020-11-23 11:51] VITALS: BP 119/78
[2020-11-23] MEDS ORDERED: DONE5TAB7 PO (11:56)
[2020-11-23] MEDS ORDERED: MEMA10TA PO (11:56)
--- NOTE | 2020-11-23 11:58 | RAD ---
Portable chest x-ray without comparison for status post thoracentesis. FINDINGS: There is a small right pleural effusion. No pneumothorax. Left lung is clear. Right IJ Port -A-Cath is present. Heart size mildly enlarged. IMPRESSION: 1. Small right pleural effusion with no pneumothorax status post right thoracentesis. Electronically signed by: Elfego Jameson MD (11/23/2020 11:56 AM) [id number]
--- NOTE | 2020-11-23 15:28 | RAD ---
Ultrasound Guided Thoracentesis, right side Indication: Adult male with right pleural effusion Sedation: Local anesthesia only. Sterility: The procedure was performed in its entirety using appropriate elements of sterile technique. Technique and Findings: Following informed consent, the patient was prepped and draped in the usual sterile fashion. Ultrasound interrogation of the area of interest was performed revealing the presence of a pleural fluid collection. 1% Lidocaine was used to achieve local anesthesia over the area of interest. A small dermatotomy was made and a 5F Gip-a-annqpnss catheter was advanced under ultrasound guidance into the pleural space and 1500 cc's of clear tomasa fluid was removed. The catheter was then removed and hemostasis was achieved with manual compression. Impression: US thoracentesis as described.
== END 2020-11-23 12:30 | disposition home or self-care (01) ==
LOC: INTRAD 10:08
PROVIDERS: ATTEND Internal Medicine Hematology & Oncology
DX: J90 Pleural effusion, not elsewhere classified (principal); Z20.822 Contact with and (suspected) exposure to COVID-19; C34.31 Malignant neoplasm of lower lobe, right bronchus or lung; Z79.899 Other long term (current) drug therapy
CPT/HCPCS: 32555; 36415; 71045; 85610; 87426; U0003

== ENCOUNTER → 2020-11-29 | Outpatient (CLI) | payer MEDICARE, BC ==
[2020-11-23 11:51] VITALS: BP 119/78
[~2020-11-29] MED LIST changes: +DONE5TAB7 PO
[2020-11-29 11:47] LABS: BASO % 1 % (0-3); EOS # 0.1 x10^3/uL (0.0-0.7); EOS % 1 % (0-3); HEMATOCRIT 35.6 % (39.0-53.0); HEMOGLOBIN 11.9 g/dL (13.0-17.5); LYMPH % 18 % (24-48); MEAN CORPUSCULAR HEMOGLOBIN 33 pg (25-35); MEAN CORPUSCULAR HGB CONC 33 g/dL (31-37); MEAN CORPUSCULAR VOLUME 99 fL (79-100); MONO # 0.7 x10^3/uL (0.0-1.1); MONO % 14 % (0-9); NEUT # 3.6 x10^3/uL (1.8-7.7); NEUT % 66 % (31-73); PLATELET COUNT 204 x10^3/uL (140-400); RED BLOOD COUNT 3.59 x10^6/uL (4.30-5.70); RED CELL DISTRIBUTION WIDTH 19.9 % (11.5-14.5); WHITE BLOOD COUNT 5.4 x10^3/uL (4.0-11.0)
[2020-11-29 11:58] LABS: CALCIUM 8.6 mg/dL (8.5-10.1); CREATININE 1.2 mg/dL (0.7-1.3); GFR 58.4
[2020-11-29 12:04] LABS: ALBUMIN 2.9 g/dL (3.4-5.0); ALBUMIN/GLOBULIN RATIO 0.7 (1.0-1.7); TOTAL BILIRUBIN 0.3 mg/dL (0.2-1.0); TOTAL PROTEIN 6.8 g/dL (6.4-8.2)
== END ==
LOC: ONCLAB 11:30
PROVIDERS: ATTEND Internal Medicine Hematology & Oncology
DX: C34.31 Malignant neoplasm of lower lobe, right bronchus or lung (principal); E03.8 Other specified hypothyroidism
CPT/HCPCS: 36415; 80053; 84443; 85025

== ENCOUNTER → 2020-12-07 | Outpatient (CLI) | payer MEDICARE, BC ==
[2020-11-23 11:51] VITALS: BP 119/78
[2020-12-07 11:27] LABS: BASO % 0 % (0-3); EOS % 2 % (0-3); HEMATOCRIT 33.8 % (39.0-53.0); HEMOGLOBIN 11.1 g/dL (13.0-17.5); LYMPH # 0.7 x10^3/uL (1.0-4.8); LYMPH % 32 % (24-48); MEAN CORPUSCULAR HEMOGLOBIN 33 pg (25-35); MEAN CORPUSCULAR HGB CONC 33 g/dL (31-37); MEAN CORPUSCULAR VOLUME 99 fL (79-100); MONO # 0.4 x10^3/uL (0.0-1.1); MONO % 19 % (0-9); NEUT % 47 % (31-73); PLATELET COUNT 110 x10^3/uL (140-400); RED CELL DISTRIBUTION WIDTH 18.3 % (11.5-14.5); WHITE BLOOD COUNT 2.2 x10^3/uL (4.0-11.0)
[2020-12-07 11:38] LABS: GFR 72.1; POTASSIUM 4.4 mmol/L (3.5-5.1)
[2020-12-07 12:49] LABS: % EOS 1 % (0-5); % LYMPHS 41 % (24-48); % MONOS 12 % (0-10); % SEGS 46 % (35-66); PLT ESTIMATE DECREASED (ADEQUATE)
== END ==
LOC: ONCLAB 11:07
PROVIDERS: ATTEND Internal Medicine Hematology & Oncology
DX: C34.31 Malignant neoplasm of lower lobe, right bronchus or lung (principal)
CPT/HCPCS: 36415; 80048; 85007; 85025

== ENCOUNTER → 2020-12-20 | Outpatient (CLI) | payer MEDICARE, BC ==
[2020-11-23 11:51] VITALS: BP 119/78
[2020-12-20 11:33] LABS: BASO % 1 % (0-3); EOS # 0.1 x10^3/uL (0.0-0.7); EOS % 2 % (0-3); HEMATOCRIT 34.6 % (39.0-53.0); HEMOGLOBIN 11.7 g/dL (13.0-17.5); LYMPH # 0.7 x10^3/uL (1.0-4.8); LYMPH % 12 % (24-48); MEAN CORPUSCULAR HEMOGLOBIN 34 pg (25-35); MEAN CORPUSCULAR HGB CONC 34 g/dL (31-37); MEAN CORPUSCULAR VOLUME 100 fL (79-100); MONO # 0.5 x10^3/uL (0.0-1.1); MONO % 8 % (0-9); NEUT # 4.4 x10^3/uL (1.8-7.7); NEUT % 77 % (31-73); PLATELET COUNT 304 x10^3/uL (140-400); RED BLOOD COUNT 3.47 x10^6/uL (4.30-5.70); WHITE BLOOD COUNT 5.8 x10^3/uL (4.0-11.0)
[2020-12-20 11:42] LABS: CALCIUM 8.4 mg/dL (8.5-10.1); CREATININE 1.3 mg/dL (0.7-1.3); GFR 53.3; POTASSIUM 4.1 mmol/L (3.5-5.1)
[2020-12-20 11:48] LABS: ALBUMIN 2.8 g/dL (3.4-5.0); ALBUMIN/GLOBULIN RATIO 0.7 (1.0-1.7); TOTAL BILIRUBIN 0.2 mg/dL (0.2-1.0); TOTAL PROTEIN 6.6 g/dL (6.4-8.2)
== END ==
LOC: ONCLAB 11:11
PROVIDERS: ATTEND Internal Medicine Hematology & Oncology
DX: C34.31 Malignant neoplasm of lower lobe, right bronchus or lung (principal); E03.8 Other specified hypothyroidism
CPT/HCPCS: 36415; 80053; 84443; 85025

== ENCOUNTER → 2021-01-10 | Outpatient (CLI) | payer MEDICARE, BC ==
[2021-01-10 11:27] LABS: BASO % 1 % (0-3); EOS # 0.1 x10^3/uL (0.0-0.7); EOS % 2 % (0-3); HEMATOCRIT 35.9 % (39.0-53.0); HEMOGLOBIN 11.9 g/dL (13.0-17.5); LYMPH # 0.8 x10^3/uL (1.0-4.8); LYMPH % 17 % (24-48); MEAN CORPUSCULAR HEMOGLOBIN 33 pg (25-35); MEAN CORPUSCULAR HGB CONC 33 g/dL (31-37); MEAN CORPUSCULAR VOLUME 100 fL (79-100); MONO # 0.7 x10^3/uL (0.0-1.1); MONO % 14 % (0-9); NEUT # 3.4 x10^3/uL (1.8-7.7); NEUT % 67 % (31-73); PLATELET COUNT 285 x10^3/uL (140-400); RED CELL DISTRIBUTION WIDTH 16.9 % (11.5-14.5); WHITE BLOOD COUNT 5.1 x10^3/uL (4.0-11.0)
[2021-01-10 12:00] LABS: CALCIUM 8.4 mg/dL (8.5-10.1); CREATININE 1.4 mg/dL (0.7-1.3); GFR 48.9; POTASSIUM 4.1 mmol/L (3.5-5.1)
[2021-01-10 12:08] LABS: ALBUMIN 3.2 g/dL (3.4-5.0); ALBUMIN/GLOBULIN RATIO 0.9 (1.0-1.7); TOTAL BILIRUBIN 0.3 mg/dL (0.2-1.0); TOTAL PROTEIN 6.7 g/dL (6.4-8.2)
== END ==
LOC: ONCLAB 10:52
PROVIDERS: ATTEND Internal Medicine Hematology & Oncology
DX: C34.31 Malignant neoplasm of lower lobe, right bronchus or lung (principal)
CPT/HCPCS: 36415; 80053; 85025

== ENCOUNTER → 2021-01-16 | Outpatient (CLI) | payer MEDICARE, BC ==
[2021-01-16 10:52] LABS: BASO % 1 % (0-3); EOS # 0.1 x10^3/uL (0.0-0.7); EOS % 2 % (0-3); HEMATOCRIT 34.2 % (39.0-53.0); HEMOGLOBIN 11.5 g/dL (13.0-17.5); LYMPH # 0.6 x10^3/uL (1.0-4.8); LYMPH % 18 % (24-48); MEAN CORPUSCULAR HEMOGLOBIN 34 pg (25-35); MEAN CORPUSCULAR HGB CONC 34 g/dL (31-37); MEAN CORPUSCULAR VOLUME 100 fL (79-100); MONO # 0.1 x10^3/uL (0.0-1.1); MONO % 2 % (0-9); NEUT # 2.6 x10^3/uL (1.8-7.7); NEUT % 78 % (31-73); PLATELET COUNT 184 x10^3/uL (140-400); RED BLOOD COUNT 3.41 x10^6/uL (4.30-5.70); RED CELL DISTRIBUTION WIDTH 16.8 % (11.5-14.5); WHITE BLOOD COUNT 3.3 x10^3/uL (4.0-11.0)
[2021-01-16 10:57] LABS: CALCIUM 8.1 mg/dL (8.5-10.1); CREATININE 1.2 mg/dL (0.7-1.3); GFR 58.4; POTASSIUM 4.1 mmol/L (3.5-5.1)
== END ==
LOC: ONCLAB 10:11
PROVIDERS: ATTEND Physician Assistant
DX: C34.31 Malignant neoplasm of lower lobe, right bronchus or lung (principal)
CPT/HCPCS: 36415; 80048; 85025

== ENCOUNTER → 2021-01-23 | Outpatient (CLI) | payer MEDICARE, BC ==
[~2021-01-23] MED LIST changes: +CALC-299 PO; +DONE10TA7 PO
[2021-01-23 13:42] LABS: BASO % 0 % (0-3); EOS % 1 % (0-3); HEMATOCRIT 34.2 % (39.0-53.0); HEMOGLOBIN 11.4 g/dL (13.0-17.5); LYMPH # 0.6 x10^3/uL (1.0-4.8); LYMPH % 16 % (24-48); MEAN CORPUSCULAR HEMOGLOBIN 33 pg (25-35); MEAN CORPUSCULAR HGB CONC 33 g/dL (31-37); MEAN CORPUSCULAR VOLUME 100 fL (79-100); MONO % 30 % (0-9); NEUT # 1.8 x10^3/uL (1.8-7.7); NEUT % 53 % (31-73); PLATELET COUNT 109 x10^3/uL (140-400); RED BLOOD COUNT 3.43 x10^6/uL (4.30-5.70); RED CELL DISTRIBUTION WIDTH 16.3 % (11.5-14.5); WHITE BLOOD COUNT 3.5 x10^3/uL (4.0-11.0)
[2021-01-23 13:47] LABS: CALCIUM 8.4 mg/dL (8.5-10.1); CREATININE 1.3 mg/dL (0.7-1.3); GFR 53.3; POTASSIUM 4.2 mmol/L (3.5-5.1)
[2021-01-23 13:53] LABS: ALBUMIN 3.1 g/dL (3.4-5.0); ALBUMIN/GLOBULIN RATIO 0.8 (1.0-1.7); TOTAL BILIRUBIN 0.4 mg/dL (0.2-1.0); TOTAL PROTEIN 6.8 g/dL (6.4-8.2)
[2021-01-23 14:39] LABS: % BANDS 8 % (0-9); % LYMPHS 18 % (24-48); % MONOS 23 % (0-10); % SEGS 51 % (35-66); PLT ESTIMATE DECREASED (ADEQUATE)
[2021-01-23 14:41] LABS: ANISOCYTOSIS SLIGHT; OVALOCYTES FEW; POLYCHROMASIA OCCASIONAL
== END ==
LOC: ONCLAB 13:03
PROVIDERS: ATTEND Physician Assistant
DX: C34.31 Malignant neoplasm of lower lobe, right bronchus or lung (principal)
CPT/HCPCS: 36415; 80053; 85007; 85025

== ENCOUNTER → 2021-01-31 | Outpatient (CLI) | payer MEDICARE, BC ==
[2021-01-26 07:00] VITALS: BP 130/82
[~2021-01-31] MED LIST changes: +PRED-220 PO
[2021-01-31 10:32] LABS: BASO % 0 % (0-3); EOS % 0 % (0-3); HEMATOCRIT 35.2 % (39.0-53.0); HEMOGLOBIN 11.6 g/dL (13.0-17.5); LYMPH # 0.8 x10^3/uL (1.0-4.8); LYMPH % 16 % (24-48); MEAN CORPUSCULAR HEMOGLOBIN 33 pg (25-35); MEAN CORPUSCULAR HGB CONC 33 g/dL (31-37); MEAN CORPUSCULAR VOLUME 100 fL (79-100); MONO # 0.9 x10^3/uL (0.0-1.1); MONO % 17 % (0-9); NEUT # 3.4 x10^3/uL (1.8-7.7); NEUT % 66 % (31-73); PLATELET COUNT 351 x10^3/uL (140-400); RED CELL DISTRIBUTION WIDTH 17.1 % (11.5-14.5); WHITE BLOOD COUNT 5.1 x10^3/uL (4.0-11.0)
[2021-01-31 12:41] LABS: ALBUMIN 3.1 g/dL (3.4-5.0); ALBUMIN/GLOBULIN RATIO 0.8 (1.0-1.7); CALCIUM 8.5 mg/dL (8.5-10.1); CREATININE 1.3 mg/dL (0.7-1.3); GFR 53.3; TOTAL BILIRUBIN 0.3 mg/dL (0.2-1.0); TOTAL PROTEIN 6.9 g/dL (6.4-8.2)
== END ==
LOC: ONCLAB 09:51
PROVIDERS: ATTEND Internal Medicine Hematology & Oncology
DX: C34.31 Malignant neoplasm of lower lobe, right bronchus or lung (principal); E03.8 Other specified hypothyroidism
CPT/HCPCS: 36415; 80053; 84443; 85025

== ENCOUNTER 2021-02-08 07:16 | Outpatient (CLI) | payer MEDICARE, BC ==
[~2021-02-08] VITALS: Ht 182.9 cm; Wt 63.6 kg
[2021-02-08] VITALS (8 sets, daily range): BP systolic 100–117; BP diastolic 63–80
--- NOTE | 2021-02-08 09:56 | NUR ---
Patient given instructions on procedure, site care. at bedside. Both verbalized understanding. No bleeding at access site. VS stable. All of patient's belongings taken w/ him at time of d/c. Will call PCP when/if symptoms re-occur to schedule next thoracentesis.
--- NOTE | 2021-02-08 11:12 | RAD ---
Right Thoracentesis 02/08/2021 8:01 AM Clinical History: Right pleural effusion. Technique: Relative benefits risks and alternatives were discussed with the patient and/or their rep resentative. Written informed consent was obtained. The patient was placed in seated position. A shaggy eout procedure was performed. Sonographic assessment demonstrates a large pleural effusion. A site for skin entry was selected, and subsequently prepped and draped using sterile barrier technique. 1% lidocaine without epinepherine was administered for local anesthesia to the skin and subcutaenous tissues. A 5 Belarusian sheathed needle was passed into the pleural space. Clear yellow fluid was aspirated and t he catheter was connected to a vacuum. Approximately 1.3 liters of fluid were drained. The catheter was removed and adequate hemostasis was obtained. A sterile dressing was applied. The patient tolera joselito the procedure well, without complications. Impression: Successful ultrasound guided thoracentesis with removal of1. 3 liters of fluid. Electronically signed by: Omar Vazquez MD (02/08/2021 11:10 AM) [id number]
== END 2021-02-08 09:58 | disposition home or self-care (01) ==
LOC: INTRAD 07:16
PROVIDERS: ATTEND Internal Medicine Hematology & Oncology
DX: J90 Pleural effusion, not elsewhere classified (principal); E78.00 Pure hypercholesterolemia, unspecified; K21.9 Gastro-esophageal reflux disease without esophagitis; M19.90 Unspecified osteoarthritis, unspecified site; Z87.891 Personal history of nicotine dependence; Z79.899 Other long term (current) drug therapy; Z98.890 Other specified postprocedural states
CPT/HCPCS: 32555

== ENCOUNTER 2021-02-12 11:21 | Inpatient (IN) | payer MEDICARE, BC ==
[~2021-02-12] VITALS: Ht 182.9 cm; Wt 57.3 kg
--- NOTE | 2021-02-12 11:46 | ED.ADGEN ---
Past Medical History Past Medical History: Cancer, High Cholesterol, Pneumonia, Other Additional Past Medical Histor: GOUT, LUNG/PROSTATE CA,ALZHEIMER'S Past Surgical History: Tonsillectomy Additional Past Surgical Histo: SINUS, R.JAW,PAC R CHEST Smoking Status: Former Smoker Alcohol Use: None Drug Use: None General Adult EDM: Chief Complaint: SHORTNESS OF BREATH HPI: HPI: Patient is a 80 year old male sent in from cancer center for hypoxia. Per re port patient was saturating 82% on room air. Patient denies any home oxygen use. Is currently 97% on 2 L nasal cannula. He has been treated for lung cancer and had a recent thoracentesis. Patient states he otherwise felt well and has no complaints. Review of Systems: Review of Systems: All other systems within normal limits except for as noted in the HPI Current Medications: Current Medications Medications (Trade) Dose Ordered Sig/Rocío Start Time Stop Time Status Last Admin Dose Admin Iohexol (Omnipaque 350 Mg/ml) 75 ml 1X ONCE 02/12/21 13:45 02/12/21 13:46 DC Allergies: Allergies: Allergies Coded Allergies Type Severity Reaction Last Updated Verified No Known Drug Allergies 08/15/18 No Physical Exam: PE: Constitutional: Well developed, well nourished, no acute distress, thin appearing HENT: Normocephalic, atraumatic, bilateral external ears normal, nose normal. [] Eyes: PERRLA, conjunctiva normal, no discharge. [] Neck: No rigidity, supple, no stridor. [] Cardiovascular: Regular rate and rhythm, brisk cap refill [] Lungs & Thorax: Non labored symmetric respirations, no tachypnea or respiratory distress. Port in left chest [] Abdomen: Soft, nondistended. Skin: Warm, dry, no erythema, no rash. [] Back: Unremarkable Extremities: No deformities, range of motion grossly intact, no lower extremity edema [] Neurologic: Alert and oriented X 3, no focal deficits noted. [] Psychologic: Affect normal, judgement normal, mood normal. [] Current Patient Data: Labs: Laboratory Tests Test 02/12/21 11:43 02/12/21 12:17 White Blood Count 3.1 x10^3/uL (4.0-11.0) L Red Blood Count 3.65 x10^6/uL (4.30-5.70) L Hemoglobin 12.1 g/dL (13.0-17.5) L Hematocrit 35.7 % (39.0-53.0) L Mean Corpuscular Volume 98 fL (79-100) Mean Corpuscular Hemoglobin 33 pg (25-35) Mean Corpuscular Hemoglobin Concent 34 g/dL (31-37) Red Cell Distribution Width 16.6 % (11.5-14.5) H Platelet Count 81 x10^3/uL (140-400) L Neutrophils (%) (Auto) 80 % (31-73) H Lymphocytes (%) (Auto) 11 % (24-48) L Monocytes (%) (Auto) 10 % (0-9) H Eosinophils (%) (Auto) 0 % (0-3) Basophils (%) (Auto) 0 % (0-3) Neutrophils # (Auto) 2.5 x10^3/uL (1.8-7.7) Lymphocytes # (Auto) 0.3 x10^3/uL (1.0-4.8) L Monocytes # (Auto) 0.3 x10^3/uL (0.0-1.1) Eosinophils # (Auto) 0.0 x10^3/uL (0.0-0.7) Basophils # (Auto) 0.0 x10^3/uL (0.0-0.2) Segmented Neutrophils % 79 % (35-66) H Lymphocytes % 17 % (24-48) L Monocytes % 4 % (0-10) Dohle Bodies Few Platelet Estimate Decreased (ADEQUATE) Polychromasia Slight Sodium Level 138 mmol/L (136-145) Potassium Level 4.5 mmol/L (3.5-5.1) Chloride Level 102 mmol/L (98-107) Carbon Dioxide Level 28 mmol/L (21-32) Anion Gap 8 (6-14) Blood Urea Nitrogen 24 mg/dL (8-26) Creatinine 1.4 mg/dL (0.7-1.3) H Estimated GFR (Cockcroft-Gault) 48.9 BUN/Creatinine Ratio 17 (6-20) Glucose Level 117 mg/dL (70-99) H Calcium Level 8.5 mg/dL (8.5-10.1) Phosphorus Level 3.6 mg/dL (2.6-4.7) Magnesium Level 2.2 mg/dL (1.8-2.4) Total Bilirubin 0.5 mg/dL (0.2-1.0) Aspartate Amino Transferase (AST) 64 U/L (15-37) H Alanine Aminotransferase (ALT) 24 U/L (16-63) Alkaline Phosphatase 112 U/L (46-116) Troponin I Quantitative < 0.017 ng/mL (0.000-0.055) TU-Lyd-R-Type Natriuretic Peptide 1239 pg/mL (0-449) H Total Protein 6.0 g/dL (6.4-8.2) L Albumin 2.5 g/dL (3.4-5.0) L Albumin/Globulin Ratio 0.7 (1.0-1.7) L D-Dimer (Yokasta) 2.18 ug/mlFEU (0.00-0.50) H Laboratory Tests 02/12/21 11:43 Laboratory Tests 02/12/21 11:43 Vital Signs: Vital Signs Date Time Temp Pulse Resp B/P (MAP) Pulse Ox O2 Delivery O2 Flow Rate FiO2 02/12/21 14:24 81 94/65 (75) 93 Nasal Cannula 2.0 02/12/21 11:33 98.4 20 98.4 EKG: EKG: Sinus rhythm, heart rate 80 bpm, no ST elevation depression, slight left axis deviation [] Heart Score: C/O Chest Pain: No Risk Factors: Risk Factors: DM, Current or recent (<one month) smoker, HTN, HLP, family history of CAD, obesity. Risk Scores: Score 0 - 3: 2.5% MACE over next 6 weeks - Discharge Home Score 4 - 6: 20.3% MACE over next 6 weeks - Admit for Clinical Observation Score 7 - 10: 72.7% MACE over next 6 weeks - Early Invasive Strategies Radiology/Procedures: Radiology/Procedures: [facility] [address] [place] [address] IMAGING REPORT Signed PATIENT: RADHA BENITES WACCOUNT: [id number] : 1940 LOCATION: ER AGE: 80 SEX: M EXAM STATUS: REG ER ORD. PHYSICIAN: IESHA SHEPPARD MD REASON: dyspnea PROCEDURE: CHEST AP ONLY Portable AP chest. HISTORY: Dyspnea AP view was taken of the chest. Right Port-A-Cath is unchanged. Heart is normal in size. Left lung is clear. There is persistent moderate right pleural effusion. There is no pneumothorax. There is atelectasis or infiltrate or mass in the right lower lobe and middle lobe. IMPRESSION: 1. Moderate right pleural effusion. 2. Little change from recent studies. 3. Left lung is clear. Electronically signed by: Abdirahman Westfall MD (02/12/2021 12:31 PM) [id number] DICTATED and SIGNED BY: ABDIRAHMAN WESTFALL MD DATE: 02/12/21 [id number] [][facility] [address] [facility] [place] [address] IMAGING REPORT Signed PATIENT: RADHA BENITES WACCOUNT: [id number] : 1940 LOCATION: ER AGE: 80 SEX: M EXAM STATUS: REG ER ORD. PHYSICIAN: IESHA SHEPPARD MD REASON: hypoxia, h/o lung ca PROCEDURE: CT ANGIOGRAPHY CHEST Study: CT CHEST WITH CONTRAST - PULMONARY ANGIOGRAM History: Hypoxia, history of lung cancer Comparison: CT images and chest 01/25/2021 Technique: Helical CT of the chest performed after the administration of 75 mL Omnipaque 350 intravenous contrast and timed for angiographic evaluation of the pulmonary arteries per PE protocol. Coronal and sagittal 3D MIP reformations were obtained. One or more of the following individualized dose reduction techniques were utili zed for this examination: 1. Automated exposure control 2. Adjustment of the mA and/or kV according to patient size 3. Use of iterative reconstruction technique. Findings: Pulmonary Arteries: Contrast bolus is adequate. There is no acute pulmonary embolism. There is unchanged attenuation of pulmonary arteries within the right upper lobe mass. Heart/Systemic Vasculature: The heart is normal in size. No pericardial effusion. Thoracic aorta is normal in caliber. There is mild calcified aortic atherosclerosis. Mediastinum: Unchanged ill-defined soft tissue throughout the mediastinum and hi la. Lungs: The right perihilar mass or masslike consolidation measures 5.1 x 3.6 cm. Surrounding consolidation on prior CT has decreased. There are bandlike opacities with architectural distortion extending from the mass to the pleura. The mass causes unchanged attenuation of regional pulmonary arteries and displacement narrowing of airways. There is a small filling defect in the right bronchus intermedius adjacent to the mass (image 79, series 3). The focal ground glass and consolidative opacities in the anterior left upper lobe are more groundglass in appearance and there are new, more diffuse groundglass opacities throughout the rest of the left lung. A right pleural effusion is decreased, now moderate. There is a tiny left pleural effusion. Neck/Axilla/Body Wall: No axillary lymphadenopathy. Right Port-A-Cath is redemonstrated. Upper Abdomen: There is unchanged thickening of the left adrenal gland. Bones: A destructive sclerotic lytic lesion in the sternum is unchanged. IMPRESSION: 1. No acute pulmonary embolism. Unchanged attenuation of pulmonary arteries within the right upper lobe mass/masslike consolidation. 2. Right upper lobe mass/masslike consolidation measures approximately 5 cm. Surrounding consolidation has decreased. 3. There are increased, more diffuse ground glass opacities throughout the left lung. Infection, pneumonitis, or pulmonary edema or possible. 4. Decreased, now moderate right pleural effusion. 5. Unchanged destructive sternal lesion. Electronically signed by: Iesha Kohler MD (02/12/2021 2:24 PM) [id number] DICTATED and SIGNED BY: ISEHA KOHLER MD DATE: 02/12/21 [id number] Course & Med Decision Making: Course & Med Decision Making Pertinent Labs and Imaging studies reviewed. (See chart for details) Admitted for pneumonia and immune compromised state. Patient swabbed for Covid. Admitted to hospitalist, Dr. Mccoy accepted care [] Valentino Disclaimer: Valentino Disclaimer: This electronic medical record was generated, in whole or in part, using a voice recognition dictation system. Departure Departure Impression: Primary Impression: Hospital-acquired pneumonia Additional Impression: Person under investigation for COVID-19 Disposition: ADMITTED INPATIENT Admitting Physician: LEELA Condition: GUARDED Referrals: QING WEBBER MD (PCP) Problem Qualifiers IESHA SHEPPARD MD Feb 12, 2021 11:46
[2021-02-12 12:00] LABS: BASO % 0 % (0-3); EOS % 0 % (0-3); HEMATOCRIT 35.7 % (39.0-53.0); HEMOGLOBIN 12.1 g/dL (13.0-17.5); LYMPH # 0.3 x10^3/uL (1.0-4.8); LYMPH % 11 % (24-48); MEAN CORPUSCULAR HEMOGLOBIN 33 pg (25-35); MEAN CORPUSCULAR HGB CONC 34 g/dL (31-37); MEAN CORPUSCULAR VOLUME 98 fL (79-100); MONO # 0.3 x10^3/uL (0.0-1.1); MONO % 10 % (0-9); NEUT # 2.5 x10^3/uL (1.8-7.7); NEUT % 80 % (31-73); PLATELET COUNT 81 x10^3/uL (140-400); RED BLOOD COUNT 3.65 x10^6/uL (4.30-5.70); RED CELL DISTRIBUTION WIDTH 16.6 % (11.5-14.5); WHITE BLOOD COUNT 3.1 x10^3/uL (4.0-11.0)
[2021-02-12 12:12] LABS: CALCIUM 8.5 mg/dL (8.5-10.1); CREATININE 1.4 mg/dL (0.7-1.3); GFR 48.9; POTASSIUM 4.5 mmol/L (3.5-5.1)
[2021-02-12 12:18] LABS: ALBUMIN 2.5 g/dL (3.4-5.0); ALBUMIN/GLOBULIN RATIO 0.7 (1.0-1.7); MAGNESIUM 2.2 mg/dL (1.8-2.4); PHOSPHORUS 3.6 mg/dL (2.6-4.7); TOTAL BILIRUBIN 0.5 mg/dL (0.2-1.0)
--- NOTE | 2021-02-12 12:33 | RAD ---
Portable AP chest. HISTORY: Dyspnea AP view was taken of the chest. Right Port-A-Cath is unchanged. Heart is normal in size. Left lung is clear. There is persistent moderate right pleural effusion. There is no pneumothorax. There is atele ctasis or infiltrate or mass in the right lower lobe and middle lobe. IMPRESSION: 1. Moderate right pleural effusion. 2. Little change from recent studies. 3. Left lung is clear. Electronically signed by: Abdirahman Westfall MD (02/12/2021 12:31 PM) [id number]
[2021-02-12 12:54] LABS: % LYMPHS 17 % (24-48); % MONOS 4 % (0-10); % SEGS 79 % (35-66); PLT ESTIMATE DECREASED (ADEQUATE)
[2021-02-12 12:55] LABS: POLYCHROMASIA SLIGHT
[2021-02-12] MEDS ORDERED: IOHEXOL 350 MG/ML 100 ML VIAL. IV ONE (13:45)
--- NOTE | 2021-02-12 14:26 | RAD ---
Study: CT CHEST WITH CONTRAST - PULMONARY ANGIOGRAM History: Hypoxia, history of lung cancer Comparison: CT images and chest 01/25/2021 Technique: Helical CT of the chest performed after the administration of 75 mL Omnipaque 350 intrave nous contrast and timed for angiographic evaluation of the pulmonary arteries per PE protocol. Woodward l and sagittal 3D MIP reformations were obtained. One or more of the following individualized dose reduction techniques were utilized for this examinat ion: 1. Automated exposure control 2. Adjustment of the mA and/or kV according to patient size 3. Use of iterative reconstruction technique. Findings: Pulmonary Arteries: Contrast bolus is adequate. There is no acute pulmonary embolism. There is unchan ged attenuation of pulmonary arteries within the right upper lobe mass. Heart/Systemic Vasculature: The heart is normal in size. No pericardial effusion. Thoracic aorta is n ormal in caliber. There is mild calcified aortic atherosclerosis. Mediastinum: Unchanged ill-defined soft tissue throughout the mediastinum and musa. Lungs: The right perihilar mass or masslike consolidation measures 5.1 x 3.6 cm. Surrounding consolid ation on prior CT has decreased. There are bandlike opacities with architectural distortion extending from the mass to the pleura. The mass causes unchanged attenuation of regional pulmonary arteries an d displacement narrowing of airways. There is a small filling defect in the right bronchus intermediu s adjacent to the mass (image 79, series 3). The focal ground glass and consolidative opacities in th e anterior left upper lobe are more groundglass in appearance and there are new, more diffuse groundg lass opacities throughout the rest of the left lung. A right pleural effusion is decreased, now moder ate. There is a tiny left pleural effusion. Neck/Axilla/Body Wall: No axillary lymphadenopathy. Right Port-A-Cath is redemonstrated. Upper Abdomen: There is unchanged thickening of the left adrenal gland. Bones: A destructive sclerotic lytic lesion in the sternum is unchanged. IMPRESSION: 1. No acute pulmonary embolism. Unchanged attenuation of pulmonary arteries within the right upper l obe mass/masslike consolidation. 2. Right upper lobe mass/masslike consolidation measures approximately 5 cm. Surrounding consolidati on has decreased. 3. There are increased, more diffuse ground glass opacities throughout the left lung. Infection, pne umonitis, or pulmonary edema or possible. 4. Decreased, now moderate right pleural effusion. 5. Unchanged destructive sternal lesion. Electronically signed by: Iesha Kohler MD (02/12/2021 2:24 PM) [id number]
--- NOTE | 2021-02-12 15:08 | PDOC1 ---
History and Physical Date of Admission Date of Admission DATE: 02/12/21 TIME: 15:06 Identification/Chief Complaint Chief Complaint Dyspnea Source Source: Caregiver, Chart review, Patient History of Present Illness History of Present Illness Mr Dickinson is a 80yo M w/ PMHx prostate ca in remission, metastatic lung cancer (adenocarcinoma) who is on chemotherapy, HLD, OA, gout, mild cognitive impairment who presents from outpatient oncology office to ED for dyspnea and hypoxia. Was noted to have O2 saturations of 82% on room air, placed on 2L NCO2 with improvement to 90%. He did not feel significantly more short of breath, but does note he felt better with oxygen therapy. He denies any nausea, vomiting, diarrhea. Denies any chest pain, abdominal pain, urinary symptoms or bowel symptoms. Chest radiograph reveals a moderate right pleural effusion. With his lung cancer tachycardia and hypoxia will be dialyzed in order was elevated and therefore patient underwent CT pulmonary angiogram which was negative for pulmonary embolism, but did reveal known right upper lobe 5 cm mass with decreased consolidation, but now with diffuse groundglass opacities throughout the left lower lobe and a decreased moderate right pleural effusion as well as destructive sternal sclerotic lesion. EKG sinus rate of 89 beats with multiple PACs. No T wave inversions or ST segment elevations or depressions. Wbc 3.1 with ANC less than 1, Hb 12.1, platelets 81, D-dimer 2.18, NA 138, K4.5, BUN 24, CR 1.4, glucose 117, albumin 2.5, NT proBNP 1239, AST 64, ALT 24, troponin 0. Admitted for further care. Past Medical History Cardiovascular: Hyperlipidemia Pulmonary: Pneumonia Heme/Onc: Cancer (Right lung adenocarcinoma) Musculoskeletal: Osteoarthritis Rheumatologic: Gout Renal/: Prostate Ca. Past Surgical History Past Surgical History: Other Family History Family History: No Significant Social History Smoke: Quit ALCOHOL: none Drugs: None Current Problem List Problem List Problems Medical Problems: (1) Musculoskeletal pain Status: Acute Current Medications Current Medications Current Medications Iohexol (Omnipaque 350 Mg/ml) 75 ml 1X ONCE IV ; Start 02/12/21 at 13:45; Stop 02/12/21 at 13:46; Status DC Doxycycline Hyclate 100 mg/ Dextrose 100 ml @ 50 mls/hr 1X ONCE IV ; Start 02/12/21 at 15:15; Stop 02/12/21 at 17:14 Piperacillin Sod/ Tazobactam Sod 3.375 gm/Sodium Chloride 50 ml @ 100 mls/hr 1X ONCE IV ; Start 02/12/21 at 15:15; Stop 02/12/21 at 15:44 Active Scripts Active Reported Calcium Magnesium + D Tablet (Calcium Carb/Mag Oxide/Vit D3) 1 Each Tablet 1 Each PO TID Donepezil Hcl 10 Mg Tablet 10 Mg PO HS Namenda (Memantine Hcl) 10 Mg Tablet 1 Tab PO BIDACBL B12 Active (Mecobalamin) 1,000 Mcg Tab.chew 1,000 Mcg PO DAILYWLUN Folic Acid 0.4 Mg Tablet 1 Mg PO DAILY Protonix (Pantoprazole Sodium) 20 Mg Tablet.dr 40 Mg PO DAILY Allergies Allergies: Coded Allergies: No Known Drug Allergies (Unverified , 08/15/18) ROS General: YES: Fatigue, Malaise, Appetite; No: Chills, Night Sweats, Other PSYCHOLOGICAL ROS: YES: Concentration difficultie; No: Anxiety, Behavioral Disorder, Decreased libido, Depression, Disorientation, Hallucinations, Hostility, Irritablity, Memory difficulties, Mood Swings, Obsessive thoughts, Physical abuse, Sexual abuse, Sleep disturbances, Suicidal ideation, Other Eyes: No Blurry vision, No Decreased vision, No Double vision, No Dry eyes, No Excessive tearing, No Eye Pain, No Itchy Eyes, No Loss of vision, No Photophobia, No Scotomata, No Uses contacts, No Uses glasses, No Other HEENT: No: Heacaches, Visual Changes, Hearing change, Nasal congestion, Nasal discharge, Oral lesions, Sinus pain, Sore Throat, Epistaxis, Sneezing, Snoring, Tinnitus, Vertigo, Vocal changes, Other ALLERGY AND IMMUNOLOGY: No: Hives, Insect Bite Sensitivity, Itchy/Watery Eyes, Nasal Congestion, Post Nasal Drip, Seasonal Allergies, Other Hematological and Lymphatic: No: Bleeding Problems, Blood Clots, Blood Transfusions, Brusing, Night Sweats, Pallor, Swollen Lymph Nodes, Other ENDOCRINE: No: Breast Changes, Galactorrhea, Hair Pattern Changes, Hot Flashes, Malaise/lethargy, Mood Swings, Palpitations, Polydipsia/polyuria, Skin Changes, Temperature Intolerance, Unexpected Weight Changes, Other Breast: No New/Changing Breast Lumps, No Nipple changes, No Nipple discharge, No Other Respiratory: YES: Shortness of breath, Tachypnea; No: Cough, Hemoptysis, Orthopnea, Pleuritic Pain, SOB with excertion, Sputum Changes, Stridor, Wheezing, Other Cardiovascular: No Chest Pain, No Palpitations, No Orthopnea, No Paroxysmal Noc. Dyspnea, No Edema, No Lt Headedness, No Other Gastrointestinal: No Nausea, No Vomiting, No Abdominal Pain, No Diarrhea, No Constipation, No Melena, No Hematochezia, No Other Genitourinary: No Dysuria, No Frequency, No Incontinence, No Hematuria, No Retention, No Discharge, No Urgency, No Pain, No Flank Pain, No Other, No , No , No , No , No , No , No Musculoskeletal: No Gait Disturbance, No Joint Pain, No Joint Stiffness, No Joint Swelling, No Muscle Pain, No Muscular Weakness, No Pain In:, No Swelling In:, No Other Neurological: Yes Confusion, Yes Memory Loss; No Behavorial Changes, No Bowel/Bladder ControlChng, No Dizziness, No Gait Disturbance, No Headaches, No Impaired Coord/balance, No Numbness/Tingling, No Seizures, No Speech Problems, No Tremors, No Visual Changes, No Weakness, No Other Skin: No Dry Skin, No Eczema, No Hair Changes, No Lumps, No Mole Changes, No Mottling, No Nail Changes, No Pruritus, No Rash, No Skin Lesion Changes, No Other, No Acne Physical Exam General: Alert, Cooperative, mild distress HEENT: Atraumatic, PERRLA, EOMI, Mucous membr. moist/pink Lungs: Other (bilateral scattered wheezes, left basilar crackles) Heart: S1S2, RRR, no thrills, no rubs, no gallops, no murmurs Abdomen: Normal bowel sounds, Soft, No tenderness, No hepatosplenomegaly, No masses Rectal Exam: not examined Extremities: No clubbing, No cyanosis, No edema, Normal pulses, No t enderness/swelling Skin: No rashes, No breakdown, No significant lesion Neuro: Normal gait, Normal speech, Strength at 5/5 X4 ext, Normal tone, Sensation intact, Cranial nerves 3-12 NL, Reflexes 2+ Psych/Mental Status: Mental status NL, Mood NL Vitals Vitals Vital Signs Date Time Temp Pulse Resp B/P (MAP) Pulse Ox O2 Delivery O2 Flow Rate FiO2 02/12/21 11:33 98.4 106 20 106/68 (81) 97 Room Air 98.4 Labs Labs Laboratory Tests Test 02/12/21 11:43 02/12/21 12:17 White Blood Count 3.1 x10^3/uL (4.0-11.0) Red Blood Count 3.65 x10^6/uL (4.30-5.70) Hemoglobin 12.1 g/dL (13.0-17.5) Hematocrit 35.7 % (39.0-53.0) Mean Corpuscular Volume 98 fL (79-100) Mean Corpuscular Hemoglobin 33 pg (25-35) Mean Corpuscular Hemoglobin Concent 34 g/dL (31-37) Red Cell Distribution Width 16.6 % (11.5-14.5) Platelet Count 81 x10^3/uL (140-400) Neutrophils (%) (Auto) 80 % (31-73) Lymphocytes (%) (Auto) 11 % (24-48) Monocytes (%) (Auto) 10 % (0-9) Eosinophils (%) (Auto) 0 % (0-3) Basophils (%) (Auto) 0 % (0-3) Neutrophils # (Auto) 2.5 x10^3/uL (1.8-7.7) Lymphocytes # (Auto) 0.3 x10^3/uL (1.0-4.8) Monocytes # (Auto) 0.3 x10^3/uL (0.0-1.1) Eosinophils # (Auto) 0.0 x10^3/uL (0.0-0.7) Basophils # (Auto) 0.0 x10^3/uL (0.0-0.2) Segmented Neutrophils % 79 % (35-66) Lymphocytes % 17 % (24-48) Monocytes % 4 % (0-10) Dohle Bodies Few Platelet Estimate Decreased (ADEQUATE) Polychromasia Slight Sodium Level 138 mmol/L (136-145) Potassium Level 4.5 mmol/L (3.5-5.1) Chloride Level 102 mmol/L (98-107) Carbon Dioxide Level 28 mmol/L (21-32) Anion Gap 8 (6-14) Blood Urea Nitrogen 24 mg/dL (8-26) Creatinine 1.4 mg/dL (0.7-1.3) Estimated GFR (Cockcroft-Gault) 48.9 BUN/Creatinine Ratio 17 (6-20) Glucose Level 117 mg/dL (70-99) Calcium Level 8.5 mg/dL (8.5-10.1) Phosphorus Level 3.6 mg/dL (2.6-4.7) Magnesium Level 2.2 mg/dL (1.8-2.4) Total Bilirubin 0.5 mg/dL (0.2-1.0) Aspartate Amino Transf (AST/SGOT) 64 U/L (15-37) Alanine Aminotransferase (ALT/SGPT) 24 U/L (16-63) Alkaline Phosphatase 112 U/L (46-116) Troponin I Quantitative < 0.017 ng/mL (0.000-0.055) TK-Okr-Q-Type Natriuretic Peptide 1239 pg/mL (0-449) Total Protein 6.0 g/dL (6.4-8.2) Albumin 2.5 g/dL (3.4-5.0) Albumin/Globulin Ratio 0.7 (1.0-1.7) D-Dimer (Yokasta) 2.18 ug/mlFEU (0.00-0.50) Laboratory Tests Test 02/12/21 11:43 02/12/21 12:17 White Blood Count 3.1 x10^3/uL (4.0-11.0) Red Blood Count 3.65 x10^6/uL (4.30-5.70) Hemoglobin 12.1 g/dL (13.0-17.5) Hematocrit 35.7 % (39.0-53.0) Mean Corpuscular Volume 98 fL (79-100) Mean Corpuscular Hemoglobin 33 pg (25-35) Mean Corpuscular Hemoglobin Concent 34 g/dL (31-37) Red Cell Distribution Width 16.6 % (11.5-14.5) Platelet Count 81 x10^3/uL (140-400) Neutrophils (%) (Auto) 80 % (31-73) Lymphocytes (%) (Auto) 11 % (24-48) Monocytes (%) (Auto) 10 % (0-9) Eosinophils (%) (Auto) 0 % (0-3) Basophils (%) (Auto) 0 % (0-3) Neutrophils # (Auto) 2.5 x10^3/uL (1.8-7.7) Lymphocytes # (Auto) 0.3 x10^3/uL (1.0-4.8) Monocytes # (Auto) 0.3 x10^3/uL (0.0-1.1) Eosinophils # (Auto) 0.0 x10^3/uL (0.0-0.7) Basophils # (Auto) 0.0 x10^3/uL (0.0-0.2) Segmented Neutrophils % 79 % (35-66) Lymphocytes % 17 % (24-48) Monocytes % 4 % (0-10) Dohle Bodies Few Platelet Estimate Decreased (ADEQUATE) Polychromasia Slight Sodium Level 138 mmol/L (136-145) Potassium Level 4.5 mmol/L (3.5-5.1) Chloride Level 102 mmol/L (98-107) Carbon Dioxide Level 28 mmol/L (21-32) Anion Gap 8 (6-14) Blood Urea Nitrogen 24 mg/dL (8-26) Creatinine 1.4 mg/dL (0.7-1.3) Estimated GFR (Cockcroft-Gault) 48.9 BUN/Creatinine Ratio 17 (6-20) Glucose Level 117 mg/dL (70-99) Calcium Level 8.5 mg/dL (8.5-10.1) Phosphorus Level 3.6 mg/dL (2.6-4.7) Magnesium Level 2.2 mg/dL (1.8-2.4) Total Bilirubin 0.5 mg/dL (0.2-1.0) Aspartate Amino Transf (AST/SGOT) 64 U/L (15-37) Alanine Aminotransferase (ALT/SGPT) 24 U/L (16-63) Alkaline Phosphatase 112 U/L (46-116) Troponin I Quantitative < 0.017 ng/mL (0.000-0.055) DB-Arp-K-Type Natriuretic Peptide 1239 pg/mL (0-449) Total Protein 6.0 g/dL (6.4-8.2) Albumin 2.5 g/dL (3.4-5.0) Albumin/Globulin Ratio 0.7 (1.0-1.7) D-Dimer (Yokasta) 2.18 ug/mlFEU (0.00-0.50) Images Images Chest radiograph: AP view was taken of the chest. Right Port-A-Cath is unchanged. Heart is normal in size. Left lung is clear. There is persistent moderate right pleural effusion. There is no pneumothorax. There is atelectasis or infiltrate or mass in the right lower lobe and middle lobe. IMPRESSION: 1. Moderate right pleural effusion. 2. Little change from recent studies. 3. Left lung is clear. CT CHEST WITH CONTRAST - PULMONARY ANGIOGRAM: Pulmonary Arteries: Contrast bolus is adequate. There is no acute pulmonary embolism. There is unchanged attenuation of pulmonary arteries within the right upper lobe mass. Heart/Systemic Vasculature: The heart is normal in size. No pericardial effusion. Thoracic aorta is normal in caliber. There is mild calcified aortic atherosclerosis. Mediastinum: Unchanged ill-defined soft tissue throughout the mediastinum and musa. Lungs: The right perihilar mass or masslike consolidation measures 5.1 x 3.6 cm. Surrounding consolidation on prior CT has decreased. There are bandlike opacities with architectural distortion extending from the mass to the pleura. The mass causes unchanged attenuation of regional pulmonary arteries and displacement narrowing of airways. There is a small filling defect in the right bronchus intermedius adjacent to the mass (image 79, series 3). The focal ground glass and consolidative opacities in the anterior left upper lobe are more groundglass in appearance and there are new, more diffuse groundglass opacities throughout the rest of the left lung. A right pleural effusion is decreased, now moderate. There is a tiny left pleural effusion. Neck/Axilla/Body Wall: No axillary lymphadenopathy. Right Port-A-Cath is redemonstrated. Upper Abdomen: There is unchanged thickening of the left adrenal gland. Bones: A destructive sclerotic lytic lesion in the sternum is unchanged. IMPRESSION: 1. No acute pulmonary embolism. Unchanged attenuation of pulmonary arteries within the right upper lobe mass/masslike consolidation. 2. Right upper lobe mass/masslike consolidation measures approximately 5 cm. Surrounding consolidation has decreased. 3. There are increased, more diffuse ground glass opacities throughout the left lung. Infection, pneumonitis, or pulmonary edema or possible. 4. Decreased, now moderate right pleural effusion. 5. Unchanged destructive sternal lesion. VTE Prophylaxis Ordered VTE Prophylaxis Devices: No VTE Pharmacological Prophylaxi: Yes Assessment/Plan Assessment/Plan A/P: Acute respiratory failure with hypoxia - will wean O2 as tolerated. Given findings this is mild fluid overload vs atypical pneumonia. Given his leukopenia and absolute neutropenia will cover empirically for pneumonia and if he fails to improve will trial IV lasix in AM. Dyspnea - multifactorial with lung cancer and recurrent malignant effusion, will test for COVID 19, treat for pneumonia, consult pulmonology given new hypoxia Abnormal CT chest - ground-glass infiltrates in the left lung previously though as possible pneumonitis vs pembrolizumab-induced lung injury. His pleural effusion improved and post-obstructive changes appear improved from prior Right pleural effusion - improved from prior. Has had 4x thoracentesis in the past year. Sepsis - with leukopenia. Not in shock and seems possibly a bit fluid overloaded, will given empiric antibiotics but hold off on aggressive IVF. HLD - cont statin Cognitive impairment - cont aricept, namenda, light during day, frequent redirection FEN - General diet PPX - lovenox CODE - DNR/DNI Dispo - inpatient for above Justifications for Admission Other Justification SANDY LAFLEUR MD Feb 12, 2021 15:08
[2021-02-12] MEDS ORDERED: PIPERACILLIN/TAZOBACTAM 3.375 GM in IV NORMAL SALINE 50ML 50 ML IV ONE (15:15)
[2021-02-12] MEDS ORDERED: DOXYCYCLINE HYCLATE 100 MG in IV DEXTROSE 5% 100ML 100 ML IV ONE (15:15)
[2021-02-12] MEDS ORDERED: guaiFENesin DM 200MG/20MG 10 ML SYRUP PO PRN (15:30)
[2021-02-12] MEDS ORDERED: POLYETHYLENE GLYCOL 3350 17 GM PACKET. PO PRN (15:30)
[2021-02-12] MEDS ORDERED: DOCUSATE SODIUM 100 MG CAPSULE. PO PRN (17:15)
[2021-02-12] MEDS ORDERED: ONDANSETRON PF 4 MG/2 ML VIAL. IV PRN (17:15)
[2021-02-12] MEDS ORDERED: ACETAMINOPHEN 325 MG TABLET. PO PRN (17:15)
[2021-02-12] MEDS ORDERED: ALBUTEROL SULFATE 2.5 MG/3 ML NEBU. NEB PRN (17:15)
[2021-02-12] MEDS ORDERED: PIP/TAZO PER PHARMACY MC PRN (17:15)
--- NOTE | 2021-02-12 18:09 | EKG ---
[facility] [address] [place] [address] Test Date: 2021-02-12 Test Time: 11:35:46 Pat Name: RADHA BENITES Department: Room: Gender: M [employer] Work[employer]: : 1940 Requested By: REKHA SHEPPARD Order Number: [id number] Reading MD: Measurements Intervals [place] Rate: 89 P: 29 ME: 106 QRS: 27 QRSD: 76 T: 29 QT: 326 QTc: 402 Interpretive Statements SINUS RHYTHM ATRIAL PREMATURE COMPLEX(ES), TRIGEMINY LOW LIMB LEAD VOLTAGE ABNORMAL ECG RI6.02 No previous ECG available for comparison
[2021-02-12] MEDS: ENOXAPARIN 40 MG/0.4 ML SYRINGE. SQ SCH (18:14)
[2021-02-12 19:00] VITALS: BP 108/59
[2021-02-12] MEDS: CALCIUM CARB/VIT D3 500/200 TABLET. PO SCH (21:12)
[2021-02-12] MEDS: PSYLLIUM HUSK (SUGAR FREE) 1 PKT PACKET PO SCH (21:13)
[2021-02-12] MEDS: DONEPEZIL HCL 10 MG TABLET. PO SCH (21:13)
[2021-02-12 23:09] VITALS: BP 110/60
[2021-02-13] MEDS: PIPERACILLIN/TAZOBACTAM 3.375 GM in IV NORMAL SALINE 50ML 50 ML IV SCH ×4 (00:14→17:30)
[2021-02-13 02:49] VITALS: BP 102/60
[2021-02-13 04:22] LABS: BILIRUBIN,URINE NEGATIVE (NEG); CLARITY,URINE CLEAR; COLOR,URINE YELLOW; NITRITE,URINE NEGATIVE (NEG); PH,URINE 5.5 (<5.0-8.0); PROTEIN,URINE NEGATIVE (NEG-TRACE); UROBILINOGEN,URINE 0.2 mg/dL (0.2 mg/dL)
[2021-02-13 04:41] LABS: AMORPHOUS SEDIMENT,UR PRESENT /HPF; BACTERIA,URINE 0 /HPF (0-FEW); RBC,URINE 0 /HPF (0-2); WBC,URINE OCC /HPF (0-4)
[2021-02-13] MEDS ORDERED: FUROSEMIDE 40 MG/4 ML VIAL. IVP ONE (06:00)
[2021-02-13] MEDS: PANTOPRAZOLE 40 MG TABLET.DR. PO SCH (06:25)
[2021-02-13] MEDS: MEMANTINE 10 MG TABLET. PO SCH ×2 (06:25→10:33)
[2021-02-13 07:00] VITALS: BP 91/60
[2021-02-13 08:59] LABS: BASO % 0 % (0-3); EOS % 0 % (0-3); HEMATOCRIT 34.1 % (39.0-53.0); HEMOGLOBIN 11.5 g/dL (13.0-17.5); LYMPH # 0.4 x10^3/uL (1.0-4.8); LYMPH % 9 % (24-48); MEAN CORPUSCULAR HEMOGLOBIN 33 pg (25-35); MEAN CORPUSCULAR HGB CONC 34 g/dL (31-37); MEAN CORPUSCULAR VOLUME 98 fL (79-100); MONO # 0.3 x10^3/uL (0.0-1.1); MONO % 6 % (0-9); NEUT # 3.6 x10^3/uL (1.8-7.7); NEUT % 85 % (31-73); PLATELET COUNT 74 x10^3/uL (140-400); RED BLOOD COUNT 3.47 x10^6/uL (4.30-5.70); RED CELL DISTRIBUTION WIDTH 16.6 % (11.5-14.5); WHITE BLOOD COUNT 4.3 x10^3/uL (4.0-11.0)
[2021-02-13 09:43] LABS: CALCIUM 8.1 mg/dL (8.5-10.1); CREATININE 1.5 mg/dL (0.7-1.3); GFR 45.1; POTASSIUM 4.3 mmol/L (3.5-5.1)
[2021-02-13 10:04] VITALS: BP 83/55
--- NOTE | 2021-02-13 10:16 | PDOC ---
PULMONARY PROGRESS NOTES DATE: 02/13/21 TIME: 10:15 Vitals Vital Signs Date Time Temp Pulse Resp B/P (MAP) Pulse Ox O2 Delivery O2 Flow Rate FiO2 02/13/21 10:04 75 83/55 (64) 02/13/21 07:17 Nasal Cannula 4.0 02/13/21 07:00 97.9 17 90 97.9 General: Confused Lungs: Other Cardiovascular: S1, S2 Abdomen: Soft, Non-tender Extremities: No Edema Labs Laboratory Tests Test 02/12/21 11:43 02/12/21 12:17 02/12/21 15:00 02/13/21 04:00 White Blood Count 3.1 x10^3/uL (4.0-11.0) Red Blood Count 3.65 x10^6/uL (4.30-5.70) Hemoglobin 12.1 g/dL (13.0-17.5) Hematocrit 35.7 % (39.0-53.0) Mean Corpuscular Volume 98 fL (79-100) Mean Corpuscular Hemoglobin 33 pg (25-35) Mean Corpuscular Hemoglobin Concent 34 g/dL (31-37) Red Cell Distribution Width 16.6 % (11.5-14.5) Platelet Count 81 x10^3/uL (140-400) Neutrophils (%) (Auto) 80 % (31-73) Lymphocytes (%) (Auto) 11 % (24-48) Monocytes (%) (Auto) 10 % (0-9) Eosinophils (%) (Auto) 0 % (0-3) Basophils (%) (Auto) 0 % (0-3) Neutrophils # (Auto) 2.5 x10^3/uL (1.8-7.7) Lymphocytes # (Auto) 0.3 x10^3/uL (1.0-4.8) Monocytes # (Auto) 0.3 x10^3/uL (0.0-1.1) Eosinophils # (Auto) 0.0 x10^3/uL (0.0-0.7) Basophils # (Auto) 0.0 x10^3/uL (0.0-0.2) Segmented Neutrophils % 79 % (35-66) Lymphocytes % 17 % (24-48) Monocytes % 4 % (0-10) Dohle Bodies Few Platelet Estimate Decreased (ADEQUATE) Polychromasia Slight Sodium Level 138 mmol/L (136-145) Potassium Level 4.5 mmol/L (3.5-5.1) Chloride Level 102 mmol/L (98-107) Carbon Dioxide Level 28 mmol/L (21-32) Anion Gap 8 (6-14) Blood Urea Nitrogen 24 mg/dL (8-26) Creatinine 1.4 mg/dL (0.7-1.3) Estimated GFR (Cockcroft-Gault) 48.9 BUN/Creatinine Ratio 17 (6-20) Glucose Level 117 mg/dL (70-99) Calcium Level 8.5 mg/dL (8.5-10.1) Phosphorus Level 3.6 mg/dL (2.6-4.7) Magnesium Level 2.2 mg/dL (1.8-2.4) Total Bilirubin 0.5 mg/dL (0.2-1.0) Aspartate Amino Transf (AST/SGOT) 64 U/L (15-37) Alanine Aminotransferase (ALT/SGPT) 24 U/L (16-63) Alkaline Phosphatase 112 U/L (46-116) Troponin I Quantitative < 0.017 ng/mL (0.000-0.055) QC-Unq-X-Type Natriuretic Peptide 1239 pg/mL (0-449) Total Protein 6.0 g/dL (6.4-8.2) Albumin 2.5 g/dL (3.4-5.0) Albumin/Globulin Ratio 0.7 (1.0-1.7) D-Dimer (Yokasta) 2.18 ug/mlFEU (0.00-0.50) SARS-CoV-2 RNA (SILVESTRE) Negative (Negative) Urine Collection Type Unknown Urine Color Yellow Urine Clarity Clear Urine pH 5.5 (<5.0-8.0) Urine Specific [place] >=1.030 (1.000-1.030) Urine Protein Negative mg/dL (NEG-TRACE) Urine Glucose (UA) Negative mg/dL (NEG) Urine Ketones (Stick) Negative mg/dL (NEG) Urine Blood Negative (NEG) Urine Nitrite Negative (NEG) Urine Bilirubin Negative (NEG) Urine Urobilinogen Dipstick 0.2 mg/dL (0.2 mg/dL) Urine Leukocyte Esterase Negative (NEG) Urine RBC 0 /HPF (0-2) Urine WBC Occ /HPF (0-4) Urine Squamous Epithelial Cells Few /LPF Urine Amorphous Sediment Present /HPF Urine Bacteria 0 /HPF (0-FEW) Urine Mucus Slight /LPF Test 02/13/21 08:45 White Blood Count 4.3 x10^3/uL (4.0-11.0) Red Blood Count 3.47 x10^6/uL (4.30-5.70) Hemoglobin 11.5 g/dL (13.0-17.5) Hematocrit 34.1 % (39.0-53.0) Mean Corpuscular Volume 98 fL (79-100) Mean Corpuscular Hemoglobin 33 pg (25-35) Mean Corpuscular Hemoglobin Concent 34 g/dL (31-37) Red Cell Distribution Width 16.6 % (11.5-14.5) Platelet Count 74 x10^3/uL (140-400) Neutrophils (%) (Auto) 85 % (31-73) Lymphocytes (%) (Auto) 9 % (24-48) Monocytes (%) (Auto) 6 % (0-9) Eosinophils (%) (Auto) 0 % (0-3) Basophils (%) (Auto) 0 % (0-3) Neutrophils # (Auto) 3.6 x10^3/uL (1.8-7.7) Lymphocytes # (Auto) 0.4 x10^3/uL (1.0-4.8) Monocytes # (Auto) 0.3 x10^3/uL (0.0-1.1) Eosinophils # (Auto) 0.0 x10^3/uL (0.0-0.7) Basophils # (Auto) 0.0 x10^3/uL (0.0-0.2) Sodium Level 139 mmol/L (136-145) Potassium Level 4.3 mmol/L (3.5-5.1) Chloride Level 101 mmol/L (98-107) Carbon Dioxide Level 30 mmol/L (21-32) Anion Gap 8 (6-14) Blood Urea Nitrogen 20 mg/dL (8-26) Creatinine 1.5 mg/dL (0.7-1.3) Estimated GFR (Cockcroft-Gault) 45.1 Glucose Level 140 mg/dL (70-99) Calcium Level 8.1 mg/dL (8.5-10.1) Laboratory Tests Test 02/12/21 11:43 02/12/21 12:17 02/12/21 15:00 02/13/21 04:00 White Blood Count 3.1 x10^3/uL (4.0-11.0) Red Blood Count 3.65 x10^6/uL (4.30-5.70) Hemoglobin 12.1 g/dL (13.0-17.5) Hematocrit 35.7 % (39.0-53.0) Mean Corpuscular Volume 98 fL (79-100) Mean Corpuscular Hemoglobin 33 pg (25-35) Mean Corpuscular Hemoglobin Concent 34 g/dL (31-37) Red Cell Distribution Width 16.6 % (11.5-14.5) Platelet Count 81 x10^3/uL (140-400) Neutrophils (%) (Auto) 80 % (31-73) Lymphocytes (%) (Auto) 11 % (24-48) Monocytes (%) (Auto) 10 % (0-9) Eosinophils (%) (Auto) 0 % (0-3) Basophils (%) (Auto) 0 % (0-3) Neutrophils # (Auto) 2.5 x10^3/uL (1.8-7.7) Lymphocytes # (Auto) 0.3 x10^3/uL (1.0-4.8) Monocytes # (Auto) 0.3 x10^3/uL (0.0-1.1) Eosinophils # (Auto) 0.0 x10^3/uL (0.0-0.7) Basophils # (Auto) 0.0 x10^3/uL (0.0-0.2) Segmented Neutrophils % 79 % (35-66) Lymphocytes % 17 % (24-48) Monocytes % 4 % (0-10) Dohle Bodies Few Platelet Estimate Decreased (ADEQUATE) Polychromasia Slight Sodium Level 138 mmol/L (136-145) Potassium Level 4.5 mmol/L (3.5-5.1) Chloride Level 102 mmol/L (98-107) Carbon Dioxide Level 28 mmol/L (21-32) Anion Gap 8 (6-14) Blood Urea Nitrogen 24 mg/dL (8-26) Creatinine 1.4 mg/dL (0.7-1.3) Estimated GFR (Cockcroft-Gault) 48.9 BUN/Creatinine Ratio 17 (6-20) Glucose Level 117 mg/dL (70-99) Calcium Level 8.5 mg/dL (8.5-10.1) Phosphorus Level 3.6 mg/dL (2.6-4.7) Magnesium Level 2.2 mg/dL (1.8-2.4) Total Bilirubin 0.5 mg/dL (0.2-1.0) Aspartate Amino Transf (AST/SGOT) 64 U/L (15-37) Alanine Aminotransferase (ALT/SGPT) 24 U/L (16-63) Alkaline Phosphatase 112 U/L (46-116) Troponin I Quantitative < 0.017 ng/mL (0.000-0.055) AM-Qmf-F-Type Natriuretic Peptide 1239 pg/mL (0-449) Total Protein 6.0 g/dL (6.4-8.2) Albumin 2.5 g/dL (3.4-5.0) Albumin/Globulin Ratio 0.7 (1.0-1.7) D-Dimer (Yokasta) 2.18 ug/mlFEU (0.00-0.50) SARS-CoV-2 RNA (SILVESTRE) Negative (Negative) Urine Collection Type Unknown Urine Color Yellow Urine Clarity Clear Urine pH 5.5 (<5.0-8.0) Urine Specific [place] >=1.030 (1.000-1.030) Urine Protein Negative mg/dL (NEG-TRACE) Urine Glucose (UA) Negative mg/dL (NEG) Urine Ketones (Stick) Negative mg/dL (NEG) Urine Blood Negative (NEG) Urine Nitrite Negative (NEG) Urine Bilirubin Negative (NEG) Urine Urobilinogen Dipstick 0.2 mg/dL (0.2 mg/dL) Urine Leukocyte Esterase Negative (NEG) Urine RBC 0 /HPF (0-2) Urine WBC Occ /HPF (0-4) Urine Squamous Epithelial Cells Few /LPF Urine Amorphous Sediment Present /HPF Urine Bacteria 0 /HPF (0-FEW) Urine Mucus Slight /LPF Test 02/13/21 08:45 White Blood Count 4.3 x10^3/uL (4.0-11.0) Red Blood Count 3.47 x10^6/uL (4.30-5.70) Hemoglobin 11.5 g/dL (13.0-17.5) Hematocrit 34.1 % (39.0-53.0) Mean Corpuscular Volume 98 fL (79-100) Mean Corpuscular Hemoglobin 33 pg (25-35) Mean Corpuscular Hemoglobin Concent 34 g/dL (31-37) Red Cell Distribution Width 16.6 % (11.5-14.5) Platelet Count 74 x10^3/uL (140-400) Neutrophils (%) (Auto) 85 % (31-73) Lymphocytes (%) (Auto) 9 % (24-48) Monocytes (%) (Auto) 6 % (0-9) Eosinophils (%) (Auto) 0 % (0-3) Basophils (%) (Auto) 0 % (0-3) Neutrophils # (Auto) 3.6 x10^3/uL (1.8-7.7) Lymphocytes # (Auto) 0.4 x10^3/uL (1.0-4.8) Monocytes # (Auto) 0.3 x10^3/uL (0.0-1.1) Eosinophils # (Auto) 0.0 x10^3/uL (0.0-0.7) Basophils # (Auto) 0.0 x10^3/uL (0.0-0.2) Sodium Level 139 mmol/L (136-145) Potassium Level 4.3 mmol/L (3.5-5.1) Chloride Level 101 mmol/L (98-107) Carbon Dioxide Level 30 mmol/L (21-32) Anion Gap 8 (6-14) Blood Urea Nitrogen 20 mg/dL (8-26) Creatinine 1.5 mg/dL (0.7-1.3) Estimated GFR (Cockcroft-Gault) 45.1 Glucose Level 140 mg/dL (70-99) Calcium Level 8.1 mg/dL (8.5-10.1) Medications Active Scripts Medications Dose Route/Sig Max Daily Dose Days Date Category Calcium Magnesium + D Tablet (Calcium Carb/Mag Oxide/Vit D3) 1 Each Tablet 1 Each PO TID 01/25/21 Reported Donepezil Hcl 10 Mg Tablet 10 Mg PO HS 01/25/21 Reported Namenda (Memantine Hcl) 10 Mg Tablet 1 Tab PO BIDACBL 11/23/20 Reported B12 Active (Mecobalamin) 1,000 Mcg Tab.chew 1,000 Mcg PO DAILYWLUN 08/10/20 Reported Folic Acid 0.4 Mg Tablet 1 Mg PO DAILY 08/10/20 Reported Protonix (Pantoprazole Sodium) 20 Mg Tablet.dr 40 Mg PO DAILY 08/10/20 Reported Impression . full note dictated d/w DR Mccoy and Donnell will proceed with bronch in am continue the same for now NATALEE TERESA MD Feb 13, 2021 10:15
[2021-02-13] MEDS: DOXYCYCLINE HYCLATE 100 MG in IV DEXTROSE 5% 100ML 100 ML IV SCH ×2 (10:32→21:40)
[2021-02-13] MEDS: CYANOCOBALAMIN (VITAMIN B-12) 1,000 MCG TABLET. PO SCH (10:33)
[2021-02-13] MEDS: FOLIC ACID 1 MG TABLET. PO SCH (10:33)
[2021-02-13] MEDS: CALCIUM CARB/VIT D3 500/200 TABLET. PO SCH ×2 (10:33→16:53)
--- NOTE | 2021-02-13 10:58 | RAD ---
Right Thoracentesis 02/13/2021 10:06 AM Clinical History: Right pleural effusion. Technique: Relative benefits risks and alternatives were discussed with the patient and/or their rep resentative. Written informed consent was obtained. The patient was placed in seated position. A shaggy eout procedure was performed. Sonographic assessment demonstrates a large pleural effusion. A site for skin entry was selected, and subsequently prepped and draped using sterile barrier technique. 1% lidocaine without epinepherine was administered for local anesthesia to the skin and subcutaenous tissues. A 5 Portuguese sheathed needle was passed into the pleural space. Clear yellow fluid was aspirated and t he catheter was connected to a vacuum. Approximately 0.75 liters of fluid were drained. The catheter was removed and adequate hemostasis was obtained. A sterile dressing was applied. The patient tolera joselito the procedure well, without complications. Impression: Successful ultrasound guided thoracentesis with removal of0.5 liters of serosanguineous f luid. Electronically signed by: Omar Vazquez MD (02/13/2021 10:56 AM) [id number]
--- NOTE | 2021-02-13 11:52 | NUR ---
SW following. Discussed with RN, pt from home with , 4L (SW to determine if pt uses at home), regular diet, COVID-19 negative, gets around fine per RN. Pt having a thoracentesis today. Pulmonology following. Ortho consulted. RN advised no SW needs at this time. SW will continue to follow.
--- NOTE | 2021-02-13 13:01 | PDOC ---
[employer] PROGRESS NOTE Date of Service DOS: DATE: 02/13/21 TIME: 13:00 Chief Complaint Chief Complaint Acute respiratory failure with hypoxia - will wean O2 as tolerated. Given findings this is mild fluid overload vs atypical pneumonia. Given his leukopenia and absolute neutropenia will cover empirically for pneumonia and if he fails to improve will trial IV lasix in AM. Dyspnea - multifactorial with lung cancer and recurrent malignant effusion, will test for COVID 19, treat for pneumonia, consult pulmonology given new hypoxia Abnormal CT chest - ground-glass infiltrates in the left lung previously though as possible pneumonitis vs pembrolizumab-induced lung injury. His pleural effusion improved and post-obstructive changes appear improved from prior Right pleural effusion - improved from prior. Has had 4x thoracentesis in the past year. Sepsis - with leukopenia. Not in shock and seems possibly a bit fluid overloaded, will given empiric antibiotics but hold off on aggressive IVF. HLD - cont statin Cognitive impairment - cont aricept, namenda, light during day, frequent redirection History of Present Illness History of Present Illness consider thora today Pulm to see cont current he feels well, Vitals/I&O Vitals/I&O: Vital Signs Date Time Temp Pulse Resp B/P (MAP) Pulse Ox O2 Delivery O2 Flow Rate FiO2 02/13/21 10:04 75 83/55 (64) 02/13/21 07:17 Nasal Cannula 4.0 02/13/21 07:00 97.9 17 90 97.9 I & O 02/12/21 02/12/21 02/13/21 15:00 23:00 07:00 Intake Total 50 ml Output Total 400 ml Balance -350 ml Physical Exam Physical Exam: very thin, muscle loss noted General: Alert, Cooperative, mild distress Lungs: Other Abdomen: Normal bowel sounds, Soft, No tenderness, No hepatosplenomegaly, No masses Extremities: No clubbing, No cyanosis, No edema, Normal pulses, No tenderness/swelling Skin: No rashes, No breakdown, No significant lesion Labs Labs: Laboratory Tests Test 02/12/21 15:00 02/13/21 04:00 02/13/21 08:45 SARS-CoV-2 RNA (SILVESTRE) Negative (Negative) Urine Collection Type Unknown Urine Color Yellow Urine Clarity Clear Urine pH 5.5 (<5.0-8.0) Urine Specific [place] >=1.030 (1.000-1.030) Urine Protein Negative mg/dL (NEG-TRACE) Urine Glucose (UA) Negative mg/dL (NEG) Urine Ketones (Stick) Negative mg/dL (NEG) Urine Blood Negative (NEG) Urine Nitrite Negative (NEG) Urine Bilirubin Negative (NEG) Urine Urobilinogen Dipstick 0.2 mg/dL (0.2 mg/dL) Urine Leukocyte Esterase Negative (NEG) Urine RBC 0 /HPF (0-2) Urine WBC Occ /HPF (0-4) Urine Squamous Epithelial Cells Few /LPF Urine Amorphous Sediment Present /HPF Urine Bacteria 0 /HPF (0-FEW) Urine Mucus Slight /LPF White Blood Count 4.3 x10^3/uL (4.0-11.0) Red Blood Count 3.47 x10^6/uL (4.30-5.70) Hemoglobin 11.5 g/dL (13.0-17.5) Hematocrit 34.1 % (39.0-53.0) Mean Corpuscular Volume 98 fL (79-100) Mean Corpuscular Hemoglobin 33 pg (25-35) Mean Corpuscular Hemoglobin Concent 34 g/dL (31-37) Red Cell Distribution Width 16.6 % (11.5-14.5) Platelet Count 74 x10^3/uL (140-400) Neutrophils (%) (Auto) 85 % (31-73) Lymphocytes (%) (Auto) 9 % (24-48) Monocytes (%) (Auto) 6 % (0-9) Eosinophils (%) (Auto) 0 % (0-3) Basophils (%) (Auto) 0 % (0-3) Neutrophils # (Auto) 3.6 x10^3/uL (1.8-7.7) Lymphocytes # (Auto) 0.4 x10^3/uL (1.0-4.8) Monocytes # (Auto) 0.3 x10^3/uL (0.0-1.1) Eosinophils # (Auto) 0.0 x10^3/uL (0.0-0.7) Basophils # (Auto) 0.0 x10^3/uL (0.0-0.2) Sodium Level 139 mmol/L (136-145) Potassium Level 4.3 mmol/L (3.5-5.1) Chloride Level 101 mmol/L (98-107) Carbon Dioxide Level 30 mmol/L (21-32) Anion Gap 8 (6-14) Blood Urea Nitrogen 20 mg/dL (8-26) Creatinine 1.5 mg/dL (0.7-1.3) Estimated GFR (Cockcroft-Gault) 45.1 Glucose Level 140 mg/dL (70-99) Calcium Level 8.1 mg/dL (8.5-10.1) Assessment and Plan Assessmemt and Plan Problems Medical Problems: (1) Hospital-acquired pneumonia Status: Acute (2) Musculoskeletal pain Status: Acute (3) Person under investigation for COVID-19 Status: Acute Comment Review of Relevant I have reviewed the following items jose enrique (where applicable) has been applied. Medications: Current Medications Medications (Trade) Dose Ordered Sig/Rocío Route PRN Reason Start Time Stop Time Status Last Admin Dose Admin Doxycycline Hyclate 100 mg/ Dextrose 100 ml @ 50 mls/hr 1X ONCE IV 02/12/21 15:15 02/12/21 17:14 DC 02/12/21 17:49 Piperacillin Sod/ Tazobactam Sod 3.375 gm/Sodium Chloride 50 ml @ 100 mls/hr 1X ONCE IV 02/12/21 15:15 02/12/21 15:44 DC 02/12/21 16:53 Psyllium Hydrophilic Mucilloid (Metamucil Fiber Packet) 1 pkt QHS PO 02/12/21 21:00 02/12/21 21:13 Enoxaparin Sodium (Lovenox 40mg Syringe) 40 mg Q24H SQ 02/12/21 18:00 02/12/21 18:14 Doxycycline Hyclate 100 mg/ Dextrose 100 ml @ 50 mls/hr Q12H IV 02/13/21 09:00 02/13/21 10:32 Piperacillin Sod/ Tazobactam Sod 3.375 gm/Sodium Chloride 50 ml @ 100 mls/hr Q6HRS IV 02/13/21 00:00 02/13/21 12:50 Donepezil HCl (Aricept) 10 mg HS PO 02/12/21 21:00 02/12/21 21:13 Memantine (Namenda) 10 mg BIDACBL PO 02/13/21 07:30 02/13/21 10:33 Calcium/Vitamin D (Oscal D 500mg/ 200uts) 1 tab BIDWMEALS PO 02/12/21 19:00 02/13/21 10:33 Folic Acid (Folic Acid) 1 mg DAILY PO 02/13/21 09:00 02/13/21 10:33 Cyanocobalamin (Vitamin B-12) 1,000 mcg Q24H PO 02/13/21 11:00 02/13/21 10:33 Pantoprazole Sodium (Protonix) 40 mg DAILYAC PO 02/13/21 07:30 02/13/21 06:25 Furosemide (Lasix) 40 mg 1X ONCE IVP 02/13/21 06:00 02/13/21 06:01 DC 02/13/21 06:26 Justifications for Admission Other Justification LUIS MANUEL RAO MD Feb 13, 2021 13:01
[2021-02-13 15:00] VITALS: BP 96/59
[2021-02-13] MEDS: methylPREDNISolone SOD SUCC PF 125 MG/2 ML VIAL. IV SCH ×2 (15:16→21:41)
[2021-02-13] MEDS: ENOXAPARIN 40 MG/0.4 ML SYRINGE. SQ SCH (16:53)
[2021-02-13 19:00] VITALS: BP 91/61
[2021-02-13] MEDS: DONEPEZIL HCL 10 MG TABLET. PO SCH (21:40)
[2021-02-13] MEDS: LACTOBACILLUS RHAMNOSUS GG 1 CAPSULE. PO SCH (21:40)
[2021-02-13] MEDS: PSYLLIUM HUSK (SUGAR FREE) 1 PKT PACKET PO SCH (21:41)
--- NOTE | 2021-02-13 22:34 | CONS ---
DATE OF CONSULTATION: 02/13/2021 ATTENDING PHYSICIAN: Dr. Mccoy. REASON FOR CONSULTATION: The patient is seen in pulmonary consultation at the request of Dr. Mccoy for acute hypoxemic respiratory failure. HISTORY OF PRESENT ILLNESS: The patient is a 80-year-old that is currently being treated with a monoclonal antibody. He has a history of previous prostate cancer in remission, current metastatic lung cancer, adenocarcinoma, is on chemotherapy. He presented to the outpatient oncology office with dyspnea, hypoxemia, was noted to have O2 sats on room air of 82%. He was placed on oxygen supplementation and improved to 90%. He was then transferred to [facility] Emergency Department. He was admitted. I was asked to see him in consultation. He had a CT angiogram, which revealed no evidence of pulmonary embolism. There were no new ground glass opacities throughout both lung koch. There was also a known right upper lobe mass and surrounding consolidation, which had decreased in size. The patient normally does not wear oxygen at home. He is short of breath. He has a cough, mostly nonproductive. No fever, chills or night sweats. He did test negative for SARS-CoV-2. His white count was not elevated. Hemoglobin and hematocrit were noted. D-dimer was elevated. Electrolytes were noted. Case discussed with Dr. Mccoy earlier today. The patient was placed on empiric antibiotics, Zosyn and doxycycline. He was also started on nebulized treatments. PAST MEDICAL HISTORY: Metastatic lung cancer, currently undergoing chemotherapy with monoclonal antibody, pembrolizumab. He has had a recurrent pleural effusion. In fact, he had a thoracentesis during his last admission. The pleural fluid analysis was actually negative for malignant cells. Otherwise, there is a history of tobacco use, hyperlipidemia, osteoarthritis, gout. PAST SURGICAL HISTORY: No recent major surgeries. ALLERGIES: No known drug allergies. SOCIAL HISTORY: He smoked as a teenager until the age of 26. FAMILY HISTORY: No lung cancer. REVIEW OF SYSTEMS: As indicated above, otherwise a 10-point system was reviewed and negative. PHYSICAL EXAMINATION: GENERAL: He is requiring 3-4 liters of oxygen supplementation. No respiratory distress. He is very weak. HEENT: The sclerae were nonicteric. NECK: Jugular venous distention was not elevated. No lymphadenopathy. CHEST: Full expansion. LUNGS: Rales throughout both lung koch. HEART: Regular rate and rhythm with S1, S2, no S3. ABDOMEN: Soft, nontender, nondistended. EXTREMITIES: No clubbing, cyanosis or edema. LABORATORY DATA: Reviewed. BNP was elevated. Electrolytes were noted. Serology for SARS-CoV-2 was negative. White count initially had pancytopenia. White count was 3.1. Today, his platelet count was low at 74. Hemoglobin and hematocrit were low. White count is going up. CT angiogram reviewed as indicated above revealing no evidence of pulmonary embolism. There was ground glass opacities, new in comparison to the previous scan. There was a moderate right-sided effusion. IMPRESSION: 1. Acute hypoxemic respiratory failure, multifactorial. 2. Ground glass opacities seen on CT. Suspect possibly drug-induced pneumonitis. The patient is on pembrolizumab. In addition to drug-induced pneumonitis, this could certainly be related to atypical infection versus pulmonary edema. My clinical suspicion is that this is not related to pulmonary edema. 3. Malignant lung cancer. 4. Recurrent pleural effusion. 5. History of chronic obstructive pulmonary disease. 6. Tobacco dependence, in remission. 7. Previous thoracentesis negative by cytology for malignant cells. DISCUSSION: The above was discussed with both Dr. Mccoy and Dr. Jacobo. I suspect the new findings of ground-glass opacities are related to his monoclonal antibody, drug induced. Recommend discontinuation of the monoclonal antibody at this time. We will proceed with a diagnostic bronchoscopy to rule out atypical infection. For now, we will proceed with IV steroids and IV antibiotics. PLAN: 1. As indicated above, diagnostic bronchoscopy. 2. Continue antibiotics. 3. Add steroids. 4. Oxygen supplementation. 5. Thoracentesis, already performed removing 500 mL of pleural fluid. 6. DVT prophylaxis. 7. Continue home medications. I do appreciate the privilege in sharing in the patient's care. IDALMIS DR: Marcel TID: [id number]
[2021-02-13 22:38] VITALS: BP 101/64
[2021-02-14] MEDS: PIPERACILLIN/TAZOBACTAM 3.375 GM in IV NORMAL SALINE 50ML 50 ML IV SCH ×4 (00:25→19:08)
[2021-02-14] MEDS: methylPREDNISolone SOD SUCC PF 125 MG/2 ML VIAL. IV SCH ×3 (06:32→23:12)
[2021-02-14 06:58] LABS: BASO % 0 % (0-3); EOS % 0 % (0-3); HEMATOCRIT 31.7 % (39.0-53.0); HEMOGLOBIN 10.6 g/dL (13.0-17.5); LYMPH # 0.3 x10^3/uL (1.0-4.8); LYMPH % 7 % (24-48); MEAN CORPUSCULAR HEMOGLOBIN 33 pg (25-35); MEAN CORPUSCULAR HGB CONC 33 g/dL (31-37); MEAN CORPUSCULAR VOLUME 98 fL (79-100); MONO # 0.1 x10^3/uL (0.0-1.1); MONO % 2 % (0-9); NEUT # 3.7 x10^3/uL (1.8-7.7); NEUT % 91 % (31-73); PLATELET COUNT 86 x10^3/uL (140-400); RED BLOOD COUNT 3.23 x10^6/uL (4.30-5.70); RED CELL DISTRIBUTION WIDTH 16.3 % (11.5-14.5)
[2021-02-14 06:59] LABS: CALCIUM 7.9 mg/dL (8.5-10.1); CREATININE 1.4 mg/dL (0.7-1.3); GFR 48.9; POTASSIUM 3.1 mmol/L (3.5-5.1)
[2021-02-14 07:00] VITALS: BP 94/61
[2021-02-14] MEDS: MEMANTINE 10 MG TABLET. PO SCH ×2 (07:30→13:14)
[2021-02-14] MEDS ORDERED: LIDOCAINE 4% TOPICAL 50 ML SOLUTION. MM PRN (07:30)
[2021-02-14] MEDS ORDERED: LIDOCAINE 1% Multi-Dose 20 ML VIAL. INJ PRN (07:30)
[2021-02-14] MEDS: PANTOPRAZOLE 40 MG TABLET.DR. PO SCH (07:30)
[2021-02-14] MEDS ORDERED: EPINEPHrine 1 MG/ML VIAL INJ PRN (07:30)
[2021-02-14] MEDS ORDERED: LIDOCAINE 2% VISCOUS 100 ML BOTTLE. MM PRN (07:30)
[2021-02-14] MEDS: CALCIUM CARB/VIT D3 500/200 TABLET. PO SCH ×2 (08:00→19:08)
[2021-02-14] MEDS ORDERED: IV RINGERS,LACTATED 1000ML 1,000 ML IV SCH (08:15)
[2021-02-14] MEDS ORDERED: LIDOCAINE 4% TOPICAL 50 ML SOLUTION. ONE (08:27)
[2021-02-14] MEDS ORDERED: LIDOCAINE 1% Multi-Dose 20 ML VIAL. ONE (08:27)
[2021-02-14] MEDS ORDERED: EPINEPHrine 1 MG/ML VIAL ONE (08:27)
[2021-02-14] MEDS ORDERED: LIDOCAINE 2% VISCOUS 100 ML BOTTLE. ONE (08:27)
[2021-02-14] MEDS: DOXYCYCLINE HYCLATE 100 MG in IV DEXTROSE 5% 100ML 100 ML IV SCH ×2 (08:38→23:11)
[2021-02-14] MEDS: LACTOBACILLUS RHAMNOSUS GG 1 CAPSULE. PO SCH ×2 (09:00→22:04)
--- NOTE | 2021-02-14 09:35 | PDOC2 ---
CONSULT Date of Consult Date of Consult DATE: 02/14/21 TIME: 09:28 Reason for Consult Reason for Consult: Lung cancer Referring Physician Referring Physician: Dr. Charles Identification/Chief Complaint Chief Complaint Shortness of breath and hypoxia Source Source: Chart review, Patient History of Present Illness Reason for Visit: Giuseppe Dickinson is a 80-year-old male with metastatic lung adenocarcinoma on palliative chemotherapy with pemetrexed and pembrolizumab who presented to the hospital with shortness of breath. The patient was seen in my office on 02/12/2021. He was seen after his Lora called our office reporting that he had new onset shortness of breath that had worsened over the past 1 week. During his assessment in the office, he was found to be tachycardic, hypoxic with SPO2 of 86% on room air. He was placed on supplemental oxygen and transferred to the emergency room for further evaluation. Of note, he was initially diagnosed with lung cancer in June 2020. He was started on palliative chemotherapy with carboplatin, pemetrexed and pembrolizumab and has been on pemetrexed and pembrolizumab maintenance recently (received cycle 8 2 weeks ago). He is a new facial evaluation in the emergency room at [facility] included a CT angiogram of the chest. This showed increase in the size of the right lower lobe lung mass which now measures 5 cm, increased from 3.8 cm in 01/2021. Furthermore, bilateral pneumonitis was noted indicative of immune mediated pneumonitis. I discussed the CT results with Dr. Brar. He agrees that the CT findings are suggestive of immune mediated pneumonitis. Past Medical History Cardiovascular: Hyperlipidemia Pulmonary: Pneumonia Heme/Onc: Cancer (Right lung adenocarcinoma) Musculoskeletal: Osteoarthritis Rheumatologic: Gout Renal/: Prostate Ca. Past Surgical History Past Surgical History: Other Family History Family History: No Significant Social History Quit ALCOHOL: none Drugs: None Current Problem List Problem List Problems Medical Problems: (1) Hospital-acquired pneumonia Status: Acute (2) Musculoskeletal pain Status: Acute (3) Person under investigation for COVID-19 Status: Acute Current Medications Current Medications Current Medications Iohexol (Omnipaque 350 Mg/ml) 75 ml 1X ONCE IV ; Start 02/12/21 at 13:45; Stop 02/12/21 at 13:46; Status DC Doxycycline Hyclate 100 mg/ Dextrose 100 ml @ 50 mls/hr 1X ONCE IV Last administered on 02/12/21at 17:49; Start 02/12/21 at 15:15; Stop 02/12/21 at 17:14; Status DC Piperacillin Sod/ Tazobactam Sod 3.375 gm/Sodium Chloride 50 ml @ 100 mls/hr 1X ONCE IV Last administered on 02/12/21at 16:53; Start 02/12/21 at 15:15; Stop 02/12/21 at 15:44; Status DC Guaifenesin (Robitussin Dm) 10 ml PRN Q6HRS PRN PO COUGH; Start 02/12/21 at 15:30 Psyllium Hydrophilic Mucilloid (Metamucil Fiber Packet) 1 pkt QHS PO Last administered on 02/12/21at 21:13; Start 02/12/21 at 21:00 Polyethylene Glycol (miraLAX PACKET) 17 gm PRN DAILY PRN PO CONSTIPATION; Start 02/12/21 at 15:30 Ondansetron HCl (Zofran) 4 mg PRN Q4HRS PRN IV NAUSEA/VOMITING; Start 02/12/21 at 17:15 Acetaminophen (Tylenol) 650 mg PRN Q4HRS PRN PO TEMP OVER 100.4F OR MILD PAIN; Start 02/12/21 at 17:15 Docusate Sodium (Colace) 100 mg PRN BID PRN PO HARD STOOLS; Start 02/12/21 at 17:15 Albuterol Sulfate (Ventolin Neb Soln) 2.5 mg PRN Q4HRS PRN NEB SHORTNESS OF FELICIA ATH; Start 02/12/21 at 17:15 Enoxaparin Sodium (Lovenox 40mg Syringe) 40 mg Q24H SQ Last administered on 02/12/21at 18:14; Start 02/12/21 at 18:00 Piperacillin Sod/ Tazobactam Sod (Zosyn Per Pharmacy) 1 each PRN DAILY PRN MC SEE COMMENTS; Start 02/12/21 at 17:15 Doxycycline Hyclate 100 mg/ Dextrose 100 ml @ 50 mls/hr Q12H IV Last administered on 02/14/21at 08:38; Start 02/13/21 at 09:00 Piperacillin Sod/ Tazobactam Sod 3.375 gm/Sodium Chloride 50 ml @ 100 mls/hr Q6HRS IV Last administered on 02/14/21at 06:32; Start 02/13/21 at 00:00 Donepezil HCl (Aricept) 10 mg HS PO Last administered on 02/13/21at 21:40; Start 02/12/21 at 21:00 Memantine (Namenda) 10 mg BIDACBL PO Last administered on 02/13/21at 10:33; Start 02/13/21 at 07:30 Calcium/Vitamin D (Oscal D 500mg/ 200uts) 1 tab BIDWMEALS PO Last administered on 02/13/21at 16:53; Start 02/12/21 at 19:00 Folic Acid (Folic Acid) 1 mg DAILY PO Last administered on 02/13/21 10:33; Start 02/13/21 at 09:00 Cyanocobalamin (Vitamin B-12) 1,000 mcg Q24H PO Last administered on 02/13/21at 10:33; Start 02/13/21 at 11:00 Pantoprazole Sodium (Protonix) 40 mg DAILYAC PO Last administered on 02/13/21at 06:25; Start 02/13/21 at 07:30 Furosemide (Lasix) 40 mg 1X ONCE IVP Last administered on 02/13/21at 06:26; Start 02/13/21 at 06:00; Stop 02/13/21 at 06:01; Status DC Methylprednisolone Sodium Succinate (SOLU-Medrol 125MG VIAL) 125 mg Q8HRS IV Last administered on 02/14/21at 06:32; Start 02/13/21 at 15:00 Lactobacillus Rhamnosus (Culturelle) 1 cap BID PO Last administered on 02/13/21at 21:40; Start 02/13/21 at 21:00 Lidocaine HCl (Lidocaine 2% Viscous) 100 ml PRN 1X PRN MM FOR PROCEDURE; Start 02/14/21 at 07:30; Stop 02/15/21 at 07:29 Lidocaine HCl (Lidocaine 1% 20ml Vial) 20 ml PRN 1X PRN INJ SEE COMMENTS; Start 02/14/21 at 07:30; Stop 02/15/21 at 07:29 Epinephrine HCl (Adrenalin) 1 mg PRN 1X PRN INJ SEE COMMENTS; Start 02/14/21 at 07:30; Stop 02/15/21 at 07:29 Lidocaine HCl (Lidocaine 4% Topical) 50 ml PRN 1X PRN MM SEE COMMENTS; Start 02/14/21 at 07:30; Stop 02/15/21 at 07:29 Ringer's Solution 1,000 ml @ 50 mls/hr Q20H IV ; Start 02/14/21 at 08:15; Stop 02/14/21 at 20:14 Epinephrine HCl (Adrenalin) 1 mg STK-MED ONCE .ROUTE ; Start 02/14/21 at 08:27; Stop 02/14/21 at 08:27; Status DC Lidocaine HCl (Lidocaine 1% 20ml Vial) 20 ml STK-MED ONCE .ROUTE ; Start 02/14/21 at 08:27; Stop 02/14/21 at 08:27; Status DC Lidocaine HCl (Lidocaine 2% Viscous) 100 ml STK-MED ONCE .ROUTE ; Start 02/14/21 at 08:27; Stop 02/14/21 at 08:27; Status DC Lidocaine HCl (Lidocaine 4% Topical) 50 ml STK-MED ONCE .ROUTE ; Start 02/14/21 at 08:27; Stop 02/14/21 at 08:27; Status DC Active Scripts Active Reported Calcium Magnesium + D Tablet (Calcium Carb/Mag Oxide/Vit D3) 1 Each Tablet 1 Each PO TID Donepezil Hcl 10 Mg Tablet 10 Mg PO HS Namenda (Memantine Hcl) 10 Mg Tablet 1 Tab PO BIDACBL B12 Active (Mecobalamin) 1,000 Mcg Tab.chew 1,000 Mcg PO DAILYWLUN Folic Acid 0.4 Mg Tablet 1 Mg PO DAILY Protonix (Pantoprazole Sodium) 20 Mg Tablet.dr 40 Mg PO DAILY Allergies Allergies: Coded Allergies: No Known Drug Allergies (Unverified , 08/15/18) ROS Review of System Negative unless stated otherwise in HPI Physical Exam General: Alert, Oriented X3 HEENT: Atraumatic Lungs: Clear to auscultation Heart: Regular rate Abdomen: Soft Extremities: No clubbing Skin: No breakdown Neuro: Normal speech MUSCULOSKELETAL: No swelling Vitals VITALS Vital Signs Date Time Temp Pulse Resp B/P (MAP) Pulse Ox O2 Delivery O2 Flow Rate FiO2 02/14/21 08:00 Nasal Cannula 5.0 02/14/21 07:00 97.9 75 18 94/61 (72) 93 97.9 Labs Labs Laboratory Tests Test 02/12/21 11:43 02/12/21 12:17 02/12/21 15:00 02/13/21 04:00 White Blood Count 3.1 x10^3/uL (4.0-11.0) Red Blood Count 3.65 x10^6/uL (4.30-5.70) Hemoglobin 12.1 g/dL (13.0-17.5) Hematocrit 35.7 % (39.0-53.0) Mean Corpuscular Volume 98 fL (79-100) Mean Corpuscular Hemoglobin 33 pg (25-35) Mean Corpuscular Hemoglobin Concent 34 g/dL (31-37) Red Cell Distribution Width 16.6 % (11.5-14.5) Platelet Count 81 x10^3/uL (140-400) Neutrophils (%) (Auto) 80 % (31-73) Lymphocytes (%) (Auto) 11 % (24-48) Monocytes (%) (Auto) 10 % (0-9) Eosinophils (%) (Auto) 0 % (0-3) Basophils (%) (Auto) 0 % (0-3) Neutrophils # (Auto) 2.5 x10^3/uL (1.8-7.7) Lymphocytes # (Auto) 0.3 x10^3/uL (1.0-4.8) Monocytes # (Auto) 0.3 x10^3/uL (0.0-1.1) Eosinophils # (Auto) 0.0 x10^3/uL (0.0-0.7) Basophils # (Auto) 0.0 x10^3/uL (0.0-0.2) Segmented Neutrophils % 79 % (35-66) Lymphocytes % 17 % (24-48) Monocytes % 4 % (0-10) Dohle Bodies Few Platelet Estimate Decreased (ADEQUATE) Polychromasia Slight Sodium Level 138 mmol/L (136-145) Potassium Level 4.5 mmol/L (3.5-5.1) Chloride Level 102 mmol/L (98-107) Carbon Dioxide Level 28 mmol/L (21-32) Anion Gap 8 (6-14) Blood Urea Nitrogen 24 mg/dL (8-26) Creatinine 1.4 mg/dL (0.7-1.3) Estimated GFR (Cockcroft-Gault) 48.9 BUN/Creatinine Ratio 17 (6-20) Glucose Level 117 mg/dL (70-99) Calcium Level 8.5 mg/dL (8.5-10.1) Phosphorus Level 3.6 mg/dL (2.6-4.7) Magnesium Level 2.2 mg/dL (1.8-2.4) Total Bilirubin 0.5 mg/dL (0.2-1.0) Aspartate Amino Transf (AST/SGOT) 64 U/L (15-37) Alanine Aminotransferase (ALT/SGPT) 24 U/L (16-63) Alkaline Phosphatase 112 U/L (46-116) Troponin I Quantitative < 0.017 ng/mL (0.000-0.055) UM-Anp-C-Type Natriuretic Peptide 1239 pg/mL (0-449) Total Protein 6.0 g/dL (6.4-8.2) Albumin 2.5 g/dL (3.4-5.0) Albumin/Globulin Ratio 0.7 (1.0-1.7) D-Dimer (Yokasta) 2.18 ug/mlFEU (0.00-0.50) SARS-CoV-2 RNA (SILVESTRE) Negative (Negative) Urine Collection Type Unknown Urine Color Yellow Urine Clarity Clear Urine pH 5.5 (<5.0-8.0) Urine Specific [place] >=1.030 (1.000-1.030) Urine Protein Negative mg/dL (NEG-TRACE) Urine Glucose (UA) Negative mg/dL (NEG) Urine Ketones (Stick) Negative mg/dL (NEG) Urine Blood Negative (NEG) Urine Nitrite Negative (NEG) Urine Bilirubin Negative (NEG) Urine Urobilinogen Dipstick 0.2 mg/dL (0.2 mg/dL) Urine Leukocyte Esterase Negative (NEG) Urine RBC 0 /HPF (0-2) Urine WBC Occ /HPF (0-4) Urine Squamous Epithelial Cells Few /LPF Urine Amorphous Sediment Present /HPF Urine Bacteria 0 /HPF (0-FEW) Urine Mucus Slight /LPF Test 02/13/21 08:45 02/13/21 15:16 02/14/21 03:50 White Blood Count 4.3 x10^3/uL (4.0-11.0) 4.0 x10^3/uL (4.0-11.0) Red Blood Count 3.47 x10^6/uL (4.30-5.70) 3.23 x10^6/uL (4.30-5.70) Hemoglobin 11.5 g/dL (13.0-17.5) 10.6 g/dL (13.0-17.5) Hematocrit 34.1 % (39.0-53.0) 31.7 % (39.0-53.0) Mean Corpuscular Volume 98 fL (79-100) 98 fL (79-100) Mean Corpuscular Hemoglobin 33 pg (25-35) 33 pg (25-35) Mean Corpuscular Hemoglobin Concent 34 g/dL (31-37) 33 g/dL (31-37) Red Cell Distribution Width 16.6 % (11.5-14.5) 16.3 % (11.5-14.5) Platelet Count 74 x10^3/uL (140-400) 86 x10^3/uL (140-400) Neutrophils (%) (Auto) 85 % (31-73) 91 % (31-73) Lymphocytes (%) (Auto) 9 % (24-48) 7 % (24-48) Monocytes (%) (Auto) 6 % (0-9) 2 % (0-9) Eosinophils (%) (Auto) 0 % (0-3) 0 % (0-3) Basophils (%) (Auto) 0 % (0-3) 0 % (0-3) Neutrophils # (Auto) 3.6 x10^3/uL (1.8-7.7) 3.7 x10^3/uL (1.8-7.7) Lymphocytes # (Auto) 0.4 x10^3/uL (1.0-4.8) 0.3 x10^3/uL (1.0-4.8) Monocytes # (Auto) 0.3 x10^3/uL (0.0-1.1) 0.1 x10^3/uL (0.0-1.1) Eosinophils # (Auto) 0.0 x10^3/uL (0.0-0.7) 0.0 x10^3/uL (0.0-0.7) Basophils # (Auto) 0.0 x10^3/uL (0.0-0.2) 0.0 x10^3/uL (0.0-0.2) Sodium Level 139 mmol/L (136-145) 140 mmol/L (136-145) Potassium Level 4.3 mmol/L (3.5-5.1) 3.1 mmol/L (3.5-5.1) Chloride Level 101 mmol/L (98-107) 100 mmol/L (98-107) Carbon Dioxide Level 30 mmol/L (21-32) 32 mmol/L (21-32) Anion Gap 8 (6-14) 8 (6-14) Blood Urea Nitrogen 20 mg/dL (8-26) 24 mg/dL (8-26) Creatinine 1.5 mg/dL (0.7-1.3) 1.4 mg/dL (0.7-1.3) Estimated GFR (Cockcroft-Gault) 45.1 48.9 Glucose Level 140 mg/dL (70-99) 139 mg/dL (70-99) Calcium Level 8.1 mg/dL (8.5-10.1) 7.9 mg/dL (8.5-10.1) C-Reactive Protein, Quantitative 18.7 mg/L (0-3.3) Erythrocyte Sedimentation Rate 71 (0-15) Laboratory Tests Test 02/13/21 15:16 02/14/21 03:50 Erythrocyte Sedimentation Rate 71 (0-15) White Blood Count 4.0 x10^3/uL (4.0-11.0) Red Blood Count 3.23 x10^6/uL (4.30-5.70) Hemoglobin 10.6 g/dL (13.0-17.5) Hematocrit 31.7 % (39.0-53.0) Mean Corpuscular Volume 98 fL (79-100) Mean Corpuscular Hemoglobin 33 pg (25-35) Mean Corpuscular Hemoglobin Concent 33 g/dL (31-37) Red Cell Distribution Width 16.3 % (11.5-14.5) Platelet Count 86 x10^3/uL (140-400) Neutrophils (%) (Auto) 91 % (31-73) Lymphocytes (%) (Auto) 7 % (24-48) Monocytes (%) (Auto) 2 % (0-9) Eosinophils (%) (Auto) 0 % (0-3) Basophils (%) (Auto) 0 % (0-3) Neutrophils # (Auto) 3.7 x10^3/uL (1.8-7.7) Lymphocytes # (Auto) 0.3 x10^3/uL (1.0-4.8) Monocytes # (Auto) 0.1 x10^3/uL (0.0-1.1) Eosinophils # (Auto) 0.0 x10^3/uL (0.0-0.7) Basophils # (Auto) 0.0 x10^3/uL (0.0-0.2) Sodium Level 140 mmol/L (136-145) Potassium Level 3.1 mmol/L (3.5-5.1) Chloride Level 100 mmol/L (98-107) Carbon Dioxide Level 32 mmol/L (21-32) Anion Gap 8 (6-14) Blood Urea Nitrogen 24 mg/dL (8-26) Creatinine 1.4 mg/dL (0.7-1.3) Estimated GFR (Cockcroft-Gault) 48.9 Glucose Level 139 mg/dL (70-99) Calcium Level 7.9 mg/dL (8.5-10.1) Assessment/Plan Assessment/Plan Assessment: Metastatic lung adenocarcinoma Malignant pleural effusion Acute hypoxic respiratory failure Immune mediated pneumonitis, grade 3 Anemia and thrombocytopenia secondary to antineoplastic therapy Former tobacco use Alzheimer's dementia Recommendations: -Given disease progression and grade 3 pneumonitis, will plan to discontinue pembrolizumab and pemetrexed permanently -Recommend prednisone 1 mg/kg daily. We will plan on tapering as outpatient -Agree with bronchoscopy. We will follow up on culture results -Management of acute respiratory failure and empiric treatment for pneumonia per pulmonology service. Dr. Brar has seen the patient -Plan on assessing response to steroid taper with repeat CT in 6 weeks -Given disease progression on chemoimmunotherapy and lack of tow truck driver mutation, I discussed with the patient that options versus decline lines of therapy are limited. We discussed that hospice would be a reasonable option. They will give this further consideration and will plan on following up at his later time -Rest per Dr. Charles. Can be discharged when okay with pulmonology with plan to continue oncology follow-up for steroid taper management Vitaly Thomas MD Medical Oncology/Hematology Ph: [phone] JULIETTE THOMAS MD Feb 14, 2021 09:35
--- NOTE | 2021-02-14 09:54 | PDOC ---
PULMONARY PROGRESS NOTES DATE: 02/14/21 TIME: 09:54 Subjective Pt. resting on 5 liters NC no overnight events Vitals Vital Signs Date Time Temp Pulse Resp B/P (MAP) Pulse Ox O2 Delivery O2 Flow Rate FiO2 02/14/21 08:00 Nasal Cannula 5.0 02/14/21 07:00 97.9 75 18 94/61 (72) 93 97.9 ROS: No Nausea, No Chest Pain, No Abdominal Pain, No Increase Cough Lungs: Other Cardiovascular: S1, S2 Abdomen: Soft, Non-tender Extremities: No Edema Labs Laboratory Tests Test 02/12/21 11:43 02/12/21 12:17 02/12/21 15:00 02/13/21 04:00 White Blood Count 3.1 x10^3/uL (4.0-11.0) Red Blood Count 3.65 x10^6/uL (4.30-5.70) Hemoglobin 12.1 g/dL (13.0-17.5) Hematocrit 35.7 % (39.0-53.0) Mean Corpuscular Volume 98 fL (79-100) Mean Corpuscular Hemoglobin 33 pg (25-35) Mean Corpuscular Hemoglobin Concent 34 g/dL (31-37) Red Cell Distribution Width 16.6 % (11.5-14.5) Platelet Count 81 x10^3/uL (140-400) Neutrophils (%) (Auto) 80 % (31-73) Lymphocytes (%) (Auto) 11 % (24-48) Monocytes (%) (Auto) 10 % (0-9) Eosinophils (%) (Auto) 0 % (0-3) Basophils (%) (Auto) 0 % (0-3) Neutrophils # (Auto) 2.5 x10^3/uL (1.8-7.7) Lymphocytes # (Auto) 0.3 x10^3/uL (1.0-4.8) Monocytes # (Auto) 0.3 x10^3/uL (0.0-1.1) Eosinophils # (Auto) 0.0 x10^3/uL (0.0-0.7) Basophils # (Auto) 0.0 x10^3/uL (0.0-0.2) Segmented Neutrophils % 79 % (35-66) Lymphocytes % 17 % (24-48) Monocytes % 4 % (0-10) Dohle Bodies Few Platelet Estimate Decreased (ADEQUATE) Polychromasia Slight Sodium Level 138 mmol/L (136-145) Potassium Level 4.5 mmol/L (3.5-5.1) Chloride Level 102 mmol/L (98-107) Carbon Dioxide Level 28 mmol/L (21-32) Anion Gap 8 (6-14) Blood Urea Nitrogen 24 mg/dL (8-26) Creatinine 1.4 mg/dL (0.7-1.3) Estimated GFR (Cockcroft-Gault) 48.9 BUN/Creatinine Ratio 17 (6-20) Glucose Level 117 mg/dL (70-99) Calcium Level 8.5 mg/dL (8.5-10.1) Phosphorus Level 3.6 mg/dL (2.6-4.7) Magnesium Level 2.2 mg/dL (1.8-2.4) Total Bilirubin 0.5 mg/dL (0.2-1.0) Aspartate Amino Transf (AST/SGOT) 64 U/L (15-37) Alanine Aminotransferase (ALT/SGPT) 24 U/L (16-63) Alkaline Phosphatase 112 U/L (46-116) Troponin I Quantitative < 0.017 ng/mL (0.000-0.055) SM-Gua-N-Type Natriuretic Peptide 1239 pg/mL (0-449) Total Protein 6.0 g/dL (6.4-8.2) Albumin 2.5 g/dL (3.4-5.0) Albumin/Globulin Ratio 0.7 (1.0-1.7) D-Dimer (Yokasta) 2.18 ug/mlFEU (0.00-0.50) SARS-CoV-2 RNA (SILVESTRE) Negative (Negative) Urine Collection Type Unknown Urine Color Yellow Urine Clarity Clear Urine pH 5.5 (<5.0-8.0) Urine Specific [place] >=1.030 (1.000-1.030) Urine Protein Negative mg/dL (NEG-TRACE) Urine Glucose (UA) Negative mg/dL (NEG) Urine Ketones (Stick) Negative mg/dL (NEG) Urine Blood Negative (NEG) Urine Nitrite Negative (NEG) Urine Bilirubin Negative (NEG) Urine Urobilinogen Dipstick 0.2 mg/dL (0.2 mg/dL) Urine Leukocyte Esterase Negative (NEG) Urine RBC 0 /HPF (0-2) Urine WBC Occ /HPF (0-4) Urine Squamous Epithelial Cells Few /LPF Urine Amorphous Sediment Present /HPF Urine Bacteria 0 /HPF (0-FEW) Urine Mucus Slight /LPF Test 02/13/21 08:45 02/13/21 15:16 02/14/21 03:50 White Blood Count 4.3 x10^3/uL (4.0-11.0) 4.0 x10^3/uL (4.0-11.0) Red Blood Count 3.47 x10^6/uL (4.30-5.70) 3.23 x10^6/uL (4.30-5.70) Hemoglobin 11.5 g/dL (13.0-17.5) 10.6 g/dL (13.0-17.5) Hematocrit 34.1 % (39.0-53.0) 31.7 % (39.0-53.0) Mean Corpuscular Volume 98 fL (79-100) 98 fL (79-100) Mean Corpuscular Hemoglobin 33 pg (25-35) 33 pg (25-35) Mean Corpuscular Hemoglobin Concent 34 g/dL (31-37) 33 g/dL (31-37) Red Cell Distribution Width 16.6 % (11.5-14.5) 16.3 % (11.5-14.5) Platelet Count 74 x10^3/uL (140-400) 86 x10^3/uL (140-400) Neutrophils (%) (Auto) 85 % (31-73) 91 % (31-73) Lymphocytes (%) (Auto) 9 % (24-48) 7 % (24-48) Monocytes (%) (Auto) 6 % (0-9) 2 % (0-9) Eosinophils (%) (Auto) 0 % (0-3) 0 % (0-3) Basophils (%) (Auto) 0 % (0-3) 0 % (0-3) Neutrophils # (Auto) 3.6 x10^3/uL (1.8-7.7) 3.7 x10^3/uL (1.8-7.7) Lymphocytes # (Auto) 0.4 x10^3/uL (1.0-4.8) 0.3 x10^3/uL (1.0-4.8) Monocytes # (Auto) 0.3 x10^3/uL (0.0-1.1) 0.1 x10^3/uL (0.0-1.1) Eosinophils # (Auto) 0.0 x10^3/uL (0.0-0.7) 0.0 x10^3/uL (0.0-0.7) Basophils # (Auto) 0.0 x10^3/uL (0.0-0.2) 0.0 x10^3/uL (0.0-0.2) Sodium Level 139 mmol/L (136-145) 140 mmol/L (136-145) Potassium Level 4.3 mmol/L (3.5-5.1) 3.1 mmol/L (3.5-5.1) Chloride Level 101 mmol/L (98-107) 100 mmol/L (98-107) Carbon Dioxide Level 30 mmol/L (21-32) 32 mmol/L (21-32) Anion Gap 8 (6-14) 8 (6-14) Blood Urea Nitrogen 20 mg/dL (8-26) 24 mg/dL (8-26) Creatinine 1.5 mg/dL (0.7-1.3) 1.4 mg/dL (0.7-1.3) Estimated GFR (Cockcroft-Gault) 45.1 48.9 Glucose Level 140 mg/dL (70-99) 139 mg/dL (70-99) Calcium Level 8.1 mg/dL (8.5-10.1) 7.9 mg/dL (8.5-10.1) C-Reactive Protein, Quantitative 18.7 mg/L (0-3.3) Erythrocyte Sedimentation Rate 71 (0-15) Laboratory Tests Test 02/13/21 15:16 02/14/21 03:50 Erythrocyte Sedimentation Rate 71 (0-15) White Blood Count 4.0 x10^3/uL (4.0-11.0) Red Blood Count 3.23 x10^6/uL (4.30-5.70) Hemoglobin 10.6 g/dL (13.0-17.5) Hematocrit 31.7 % (39.0-53.0) Mean Corpuscular Volume 98 fL (79-100) Mean Corpuscular Hemoglobin 33 pg (25-35) Mean Corpuscular Hemoglobin Concent 33 g/dL (31-37) Red Cell Distribution Width 16.3 % (11.5-14.5) Platelet Count 86 x10^3/uL (140-400) Neutrophils (%) (Auto) 91 % (31-73) Lymphocytes (%) (Auto) 7 % (24-48) Monocytes (%) (Auto) 2 % (0-9) Eosinophils (%) (Auto) 0 % (0-3) Basophils (%) (Auto) 0 % (0-3) Neutrophils # (Auto) 3.7 x10^3/uL (1.8-7.7) Lymphocytes # (Auto) 0.3 x10^3/uL (1.0-4.8) Monocytes # (Auto) 0.1 x10^3/uL (0.0-1.1) Eosinophils # (Auto) 0.0 x10^3/uL (0.0-0.7) Basophils # (Auto) 0.0 x10^3/uL (0.0-0.2) Sodium Level 140 mmol/L (136-145) Potassium Level 3.1 mmol/L (3.5-5.1) Chloride Level 100 mmol/L (98-107) Carbon Dioxide Level 32 mmol/L (21-32) Anion Gap 8 (6-14) Blood Urea Nitrogen 24 mg/dL (8-26) Creatinine 1.4 mg/dL (0.7-1.3) Estimated GFR (Cockcroft-Gault) 48.9 Glucose Level 139 mg/dL (70-99) Calcium Level 7.9 mg/dL (8.5-10.1) Medications Active Scripts Medications Dose Route/Sig Max Daily Dose Days Date Category Calcium Magnesium + D Tablet (Calcium Carb/Mag Oxide/Vit D3) 1 Each Tablet 1 Each PO TID 01/25/21 Reported Donepezil Hcl 10 Mg Tablet 10 Mg PO HS 01/25/21 Reported Namenda (Memantine Hcl) 10 Mg Tablet 1 Tab PO BIDACBL 11/23/20 Reported B12 Active (Mecobalamin) 1,000 Mcg Tab.chew 1,000 Mcg PO DAILYWLUN 08/10/20 Reported Folic Acid 0.4 Mg Tablet 1 Mg PO DAILY 08/10/20 Reported Protonix (Pantoprazole Sodium) 20 Mg Tablet.dr 40 Mg PO DAILY 08/10/20 Reported Impression . IMPRESSION: 1. Acute hypoxemic respiratory failure, multifactorial. 2. Ground glass opacities seen on CT. Suspect possibly drug-induced pneumonitis. The patient is on pembrolizumab. In addition to drug-induced pneumonitis, this could certainly be related to atypical infection versus pulmonary edema. My clinical suspicion is that this is not related to pulmonary edema. 3. Malignant lung cancer. 4. Recurrent pleural effusion-- S/P thoracentesis 02/13/21 5. History of chronic obstructive pulmonary disease. 6. Tobacco dependence, in remission. 7. Previous thoracentesis negative by cytology for malignant cells. Plan . PLAN: Supplemental oxygen to keep sats above 92%, on 5 liters NC S/P diagnostic bronchoscopy on 02/14/21-- follow BAL Follow Oncology recs Continue antibiotics. Continue steroids. S/P right Thoracentesis 02/13/21 with 500 mL of pleural fluid, follow fluid results DVT/GI prophylaxis. Follow up in office D/W RN Ok to DC from our standpoint NATALEE TERESA MD Feb 14, 2021 09:54
--- NOTE | 2021-02-14 10:13 | NUR ---
JUAN ANTONIO following. Discussed with RN, pt from home with , 5L (does not use at home), NPO, gets around fine, COVID-19 negative. Pt has lung cancer, having a bronchoscopy today. JUAN ANTONIO will continue to follow. Addendum: 02/14/21 at 1454 by MARTHA ROMANO Therapy recommending home health, per therapy they do not have a preference. Joaquin Richmond RN meeting with pt and pt's . Discharge orders for home with self care, JUAN ANTONIO requested home health discharge orders. Pt needs 6 minute walk prior to discharge. JUAN ANTONIO will continue to follow. Addendum: 02/14/21 at 1607 by MARTHA ROMANO 6 minute walk has not been done yet. JUAN ANTONIO advised RN to call nursing document control supervisor to have home o2 set up if needed. RN advised RT knows it is ordered but they needed to do other pt's breathing treatments first. Addendum: 02/14/21 at 1610 by MARTHA RUIZ SW Pt accepted with [facility].
[2021-02-14 10:14] VITALS: BP 105/70
[2021-02-14] MEDS ORDERED: PROPOFOL 10 MG/ML (20ML) VIAL. IV ONE (10:23)
[2021-02-14] MEDS ORDERED: LIDOCAINE 2% PF 5 ML VIAL. ONE (10:24)
[2021-02-14] MEDS ORDERED: IV RINGERS,LACTATED 1000ML 1,000 ML IV ONE (10:30)
--- NOTE | 2021-02-14 11:21 | OP ---
DATE OF SURGERY: 02/14/2021 ATTENDING PHYSICIAN: Dr. Mccoy. PROCEDURE: Bronchoscopy, bronchoalveolar lavage. INDICATIONS: The patient presented with acute respiratory failure, abnormal CT chest revealing some alveolitis possibly drug induced, undergoing a diagnostic bronchoscopy. Risks, benefits and alternatives reviewed with the patient. He consented. DESCRIPTION TIME: Timeout was performed prior to sedation. Vital signs and O2 saturation were maintained within normal limits throughout. DESCRIPTION OF PROCEDURE: The patient was sedated under Anesthesia's direction. The bronchoscope was then inserted through the left naris. The vocal cords were identified moving bilaterally without any dysfunction. The vocal cords were anesthetized with a total of 5 mL of 4% lidocaine. The bronchoscope was passed through the vocal cords into the proximal trachea, which was normal. The right and left segments and subsegments were visualized. There was an endobronchial lesion within the right lower lobe. Picture was obtained. No biopsies were performed. The scope was wedged into the right lower lobe segment and a bronchoalveolar lavage was performed. The return was slightly cloudy in nature. The scope was then wedged into the left lower lobe segment and a bronchoalveolar lavage was likewise performed. FINDINGS: 1. Normal vocal cords. 2. Endobronchial lesion within the right lower lobe. The patient with known lung cancer. 3. No purulent secretion. 4. Minimal mucus plugging in the bases of the lungs. 5. Bronchoalveolar lavage performed of the right middle lobe and right lower lobe. PLAN: We will await the BAL results. The patient tolerated procedure well with no immediate complications. ZAINA/MARIANGEL DR: Marcel TID: [id number]
[2021-02-14] MEDS ORDERED: PRED-220 PO (12:58)
--- NOTE | 2021-02-14 13:10 | SNU/HH DC ---
DISCHARGE WITH HOME HEALTH DISCHARGE INFORMATION: Discharge Date: Feb 14, 2021 Final Diagnosis: hypoxia lung cancer drug induced pneumonitis weight loss weakness debility dementia Problems Medical Problems: (1) Hospital-acquired pneumonia Status: Acute (2) Musculoskeletal pain Status: Acute (3) Person under investigation for COVID-19 Status: Acute Condition on Discharge: Stable CODE STATUS: Code Status: DNR/DNI HOME HEALTH: Face to Face: I certify this patient is under my care and that I, had a face to face encounter that meets the physician face to face encounter requirements with this patient on 02/14 Medical Complications: Dementia, Other (lung cancer, pneumonitis, hypoxia) RN For Eval/Treatment: Yes Physical Therapy For: Evalulation/Treatment Occupational Therapy For: Evaluation/Treatment Pt Meets Homebound Status: Unsteady balance w/ amb,, Other: (new hypoxia ) POST DISCHARGE ORDERS: Activity Instructions for Disc: Activity as tolerated Weight Bearing Status after Di: As tolerated Wound/Incision Care: Keep wound/cast CDI CHECKS AFTER DISCHARGE: Checks after discharge: Check blood press - daily, Check your Temp as needed FOLLOW-UP: Follow up with: Dr. Brar 3 weeks Follow Up With: Dr. Valencia 2 weeks TREATMENT/EQUIPMENT ORDERS: Adaptive Equipment Issued: None Discharge Respiratory Equipmen: Oxygen (2 liters at rest, max with exertion) CERTIFICATION STATEMENT: Certification Statement: Certification Statement: Based on the above finding, I certify that this patient is confined to the home and needs intermittent senior living care, physical therapy and/or speech therapy, or continues to need occupational therapy.~ This patient is under my care, and I have initiated the establishment of the plan of care.~ This patient will be followed by myself or a community physician who will periodically review the plan of care. Home Meds Active Scripts Prednisone (PREDNISONE ) 10 Mg Tablet, 3 TAB PO DAILY for lung disease, for 25 Days, #75 TAB 0 Refills do not stop abruptly, see Dr. Brar in clinic before completing Prov:LUIS MANUEL RAO MD 02/14/21 Reported Medications Calcium Carb/Mag Oxide/Vit D3 (CALCIUM MAGNESIUM + D TABLET) 1 Each Tablet, 1 EACH PO TID for SUPPLEMENT, TAB 01/25/21 Donepezil Hcl (DONEPEZIL HCL) 10 Mg Tablet, 10 MG PO HS for MEMORY, TAB 01/25/21 Memantine Hcl (NAMENDA) 10 Mg Tablet, 1 TAB PO BIDACBL for MEMORY, #180 TAB 1 Refill 11/23/20 Mecobalamin (B12 Active) 1,000 Mcg Tab.chew, 1000 MCG PO DAILYWLUN for supplement, TAB.CHEW 08/10/20 Folic Acid (FOLIC ACID) 0.4 Mg Tablet, 1 MG PO DAILY for SUPPLEMENT, TAB 08/10/20 Pantoprazole Sodium (PROTONIX) 20 Mg Tablet.dr, 40 MG PO DAILY for Antacid, TAB 08/10/20 LUIS MANUEL RAO MD Feb 14, 2021 13:10
[2021-02-14] MEDS: FOLIC ACID 1 MG TABLET. PO SCH (13:14)
[2021-02-14] MEDS: CYANOCOBALAMIN (VITAMIN B-12) 1,000 MCG TABLET. PO SCH (13:14)
--- NOTE | 2021-02-14 13:18 | PDOC3 ---
Discharge Summary Visit Information Date of Admission: Feb 12, 2021 Date of Discharge: Feb 15, 2021 Final Diagnosis acute hypoxia, new lung cancer drug induced pneumonitis weight loss weakness debility dementia Problems Medical Problems: (1) Hospital-acquired pneumonia Status: Acute (2) Musculoskeletal pain Status: Acute (3) Person under investigation for COVID-19 Status: Acute Brief Hospital Course Allergies Allergies Coded Allergies Type Severity Reaction Last Updated Verified No Known Drug Allergies 02/14/21 No Vital Signs Vital Signs Date Time Temp Pulse Resp B/P (MAP) Pulse Ox O2 Delivery O2 Flow Rate FiO2 02/14/21 11:29 72 20 104/62 95 Nasal Cannula 5 02/14/21 10:57 97 97.0 Lab Results Laboratory Tests Test 02/12/21 15:00 02/13/21 04:00 02/13/21 08:45 02/13/21 15:16 SARS-CoV-2 RNA (SILVESTRE) Negative (Negative) Urine Collection Type Unknown Urine Color Yellow Urine Clarity Clear Urine pH 5.5 (<5.0-8.0) Urine Specific [place] >=1.030 (1.000-1.030) Urine Protein Negative mg/dL (NEG-TRACE) Urine Glucose (UA) Negative mg/dL (NEG) Urine Ketones (Stick) Negative mg/dL (NEG) Urine Blood Negative (NEG) Urine Nitrite Negative (NEG) Urine Bilirubin Negative (NEG) Urine Urobilinogen Dipstick 0.2 mg/dL (0.2 mg/dL) Urine Leukocyte Esterase Negative (NEG) Urine RBC 0 /HPF (0-2) Urine WBC Occ /HPF (0-4) Urine Squamous Epithelial Cells Few /LPF Urine Amorphous Sediment Present /HPF Urine Bacteria 0 /HPF (0-FEW) Urine Mucus Slight /LPF White Blood Count 4.3 x10^3/uL (4.0-11.0) Red Blood Count 3.47 x10^6/uL (4.30-5.70) Hemoglobin 11.5 g/dL (13.0-17.5) Hematocrit 34.1 % (39.0-53.0) Mean Corpuscular Volume 98 fL (79-100) Mean Corpuscular Hemoglobin 33 pg (25-35) Mean Corpuscular Hemoglobin Concent 34 g/dL (31-37) Red Cell Distribution Width 16.6 % (11.5-14.5) Platelet Count 74 x10^3/uL (140-400) Neutrophils (%) (Auto) 85 % (31-73) Lymphocytes (%) (Auto) 9 % (24-48) Monocytes (%) (Auto) 6 % (0-9) Eosinophils (%) (Auto) 0 % (0-3) Basophils (%) (Auto) 0 % (0-3) Neutrophils # (Auto) 3.6 x10^3/uL (1.8-7.7) Lymphocytes # (Auto) 0.4 x10^3/uL (1.0-4.8) Monocytes # (Auto) 0.3 x10^3/uL (0.0-1.1) Eosinophils # (Auto) 0.0 x10^3/uL (0.0-0.7) Basophils # (Auto) 0.0 x10^3/uL (0.0-0.2) Sodium Level 139 mmol/L (136-145) Potassium Level 4.3 mmol/L (3.5-5.1) Chloride Level 101 mmol/L (98-107) Carbon Dioxide Level 30 mmol/L (21-32) Anion Gap 8 (6-14) Blood Urea Nitrogen 20 mg/dL (8-26) Creatinine 1.5 mg/dL (0.7-1.3) Estimated GFR (Cockcroft-Gault) 45.1 Glucose Level 140 mg/dL (70-99) Calcium Level 8.1 mg/dL (8.5-10.1) C-Reactive Protein, Quantitative 18.7 mg/L (0-3.3) Erythrocyte Sedimentation Rate 71 (0-15) Test 02/14/21 03:50 White Blood Count 4.0 x10^3/uL (4.0-11.0) Red Blood Count 3.23 x10^6/uL (4.30-5.70) Hemoglobin 10.6 g/dL (13.0-17.5) Hematocrit 31.7 % (39.0-53.0) Mean Corpuscular Volume 98 fL (79-100) Mean Corpuscular Hemoglobin 33 pg (25-35) Mean Corpuscular Hemoglobin Concent 33 g/dL (31-37) Red Cell Distribution Width 16.3 % (11.5-14.5) Platelet Count 86 x10^3/uL (140-400) Neutrophils (%) (Auto) 91 % (31-73) Lymphocytes (%) (Auto) 7 % (24-48) Monocytes (%) (Auto) 2 % (0-9) Eosinophils (%) (Auto) 0 % (0-3) Basophils (%) (Auto) 0 % (0-3) Neutrophils # (Auto) 3.7 x10^3/uL (1.8-7.7) Lymphocytes # (Auto) 0.3 x10^3/uL (1.0-4.8) Monocytes # (Auto) 0.1 x10^3/uL (0.0-1.1) Eosinophils # (Auto) 0.0 x10^3/uL (0.0-0.7) Basophils # (Auto) 0.0 x10^3/uL (0.0-0.2) Sodium Level 140 mmol/L (136-145) Potassium Level 3.1 mmol/L (3.5-5.1) Chloride Level 100 mmol/L (98-107) Carbon Dioxide Level 32 mmol/L (21-32) Anion Gap 8 (6-14) Blood Urea Nitrogen 24 mg/dL (8-26) Creatinine 1.4 mg/dL (0.7-1.3) Estimated GFR (Cockcroft-Gault) 48.9 Glucose Level 139 mg/dL (70-99) Calcium Level 7.9 mg/dL (8.5-10.1) Laboratory Tests Test 02/13/21 15:16 02/14/21 03:50 Erythrocyte Sedimentation Rate 71 (0-15) White Blood Count 4.0 x10^3/uL (4.0-11.0) Red Blood Count 3.23 x10^6/uL (4.30-5.70) Hemoglobin 10.6 g/dL (13.0-17.5) Hematocrit 31.7 % (39.0-53.0) Mean Corpuscular Volume 98 fL (79-100) Mean Corpuscular Hemoglobin 33 pg (25-35) Mean Corpuscular Hemoglobin Concent 33 g/dL (31-37) Red Cell Distribution Width 16.3 % (11.5-14.5) Platelet Count 86 x10^3/uL (140-400) Neutrophils (%) (Auto) 91 % (31-73) Lymphocytes (%) (Auto) 7 % (24-48) Monocytes (%) (Auto) 2 % (0-9) Eosinophils (%) (Auto) 0 % (0-3) Basophils (%) (Auto) 0 % (0-3) Neutrophils # (Auto) 3.7 x10^3/uL (1.8-7.7) Lymphocytes # (Auto) 0.3 x10^3/uL (1.0-4.8) Monocytes # (Auto) 0.1 x10^3/uL (0.0-1.1) Eosinophils # (Auto) 0.0 x10^3/uL (0.0-0.7) Basophils # (Auto) 0.0 x10^3/uL (0.0-0.2) Sodium Level 140 mmol/L (136-145) Potassium Level 3.1 mmol/L (3.5-5.1) Chloride Level 100 mmol/L (98-107) Carbon Dioxide Level 32 mmol/L (21-32) Anion Gap 8 (6-14) Blood Urea Nitrogen 24 mg/dL (8-26) Creatinine 1.4 mg/dL (0.7-1.3) Estimated GFR (Cockcroft-Gault) 48.9 Glucose Level 139 mg/dL (70-99) Calcium Level 7.9 mg/dL (8.5-10.1) Brief Hospital Course Mr. Dickinson is a 80 old male with lung cancer, s/p monoclonal therapy, and has had mult pleural effusions and mult thoracentesis, Bronch today, appears inflammatory, prob drug induced pneumonitis, steroids given here, will cont predisone until f/u with Dr. Brar, PULM Discharge Information Condition at Discharge: Improved Follow Up: Weeks Disposition/Orders: D/C to Home w/ HH Scheduled Calcium Carb/Mag Oxide/Vit D3 (Calcium Magnesium + D Tablet) 1 Each Tablet, 1 EACH PO TID for SUPPLEMENT, (Reported) Entered as Reported by: Bk Moore on 01/25/212126 Last Action: Converted on 02/12/211843 by KEVIN RDZ Donepezil Hcl (Donepezil Hcl) 10 Mg Tablet, 10 MG PO HS for MEMORY, (Reported) Entered as Reported by: Bk Moore on 01/25/212126 Last Action: Continued on 02/12/211843 by KEVIN RDZ Folic Acid (Folic Acid) 0.4 Mg Tablet, 1 MG PO DAILY for SUPPLEMENT, (Reported) Entered as Reported by: CALEB GONSALEZ on 08/10/20543 Last Action: Converted on 02/12/211843 by KEVIN RDZ Mecobalamin (B12 Active) 1,000 Mcg Tab.chew, 1,000 MCG PO DAILYWLUN for supple ment, (Reported) Entered as Reported by: KEVIN RDZ on 08/10/201808 Last Action: Converted on 02/12/211843 by KEVIN RDZ Memantine Hcl (Namenda) 10 Mg Tablet, 1 TAB PO BIDACBL for MEMORY, #180 Ref 1 (Reported) Entered as Reported by: RAMIN STOKES on 11/23/20 1156 Last Action: Continued on 02/12/211843 by KEVIN RDZ Pantoprazole Sodium (Protonix) 20 Mg Tablet.dr, 40 MG PO DAILY for Antacid, (Reported) Entered as Reported by: CALEB GONSALEZ on 08/10/20543 Last Action: Converted on 02/12/211843 by KEVIN RDZ Prednisone (Prednisone ) 10 Mg Tablet, 3 TAB PO DAILY for lung disease, for 25 Days, #75 Ref 0 do not stop abruptly, see Dr. Brar in clinic before completing Prescribed by: LUIS MANUEL RAO on 02/14/21 1258 Patient Instructions Patient Instructions pt seen and discussed plan i offered consideration for hospice he often refused to wear NC oxygen here, and hypoxia was his diagnosis, lung disease, Justicifation of Admission Dx: Justifications for Admission: Justification of Admission Dx: N/A LUIS MANUEL RAO MD Feb 14, 2021 13:18
[2021-02-14 15:00] VITALS: BP 107/59
[2021-02-14 19:00] VITALS: BP 96/58
[2021-02-14] MEDS: ENOXAPARIN 40 MG/0.4 ML SYRINGE. SQ SCH (19:08)
[2021-02-14] MEDS: DONEPEZIL HCL 10 MG TABLET. PO SCH (22:04)
[2021-02-14] MEDS: PSYLLIUM HUSK (SUGAR FREE) 1 PKT PACKET PO SCH (22:04)
[2021-02-14 23:46] VITALS: BP 105/60
[2021-02-15] MEDS: PIPERACILLIN/TAZOBACTAM 3.375 GM in IV NORMAL SALINE 50ML 50 ML IV SCH ×3 (00:54→12:00)
[2021-02-15 02:36] VITALS: BP 114/70
[2021-02-15] MEDS: methylPREDNISolone SOD SUCC PF 125 MG/2 ML VIAL. IV SCH ×2 (06:18→14:00)
[2021-02-15 07:00] VITALS: BP 102/60
[2021-02-15] MEDS: CALCIUM CARB/VIT D3 500/200 TABLET. PO SCH (08:30)
[2021-02-15] MEDS: CYANOCOBALAMIN (VITAMIN B-12) 1,000 MCG TABLET. PO SCH (08:31)
[2021-02-15] MEDS: MEMANTINE 10 MG TABLET. PO SCH (08:31)
[2021-02-15] MEDS: PANTOPRAZOLE 40 MG TABLET.DR. PO SCH (08:31)
[2021-02-15] MEDS: LACTOBACILLUS RHAMNOSUS GG 1 CAPSULE. PO SCH (08:31)
[2021-02-15] MEDS: FOLIC ACID 1 MG TABLET. PO SCH (08:31)
[2021-02-15] MEDS: DOXYCYCLINE HYCLATE 100 MG in IV DEXTROSE 5% 100ML 100 ML IV SCH (08:32)
--- NOTE | 2021-02-15 08:51 | PDOC ---
[employer] PROGRESS NOTE Date of Service DOS: DATE: 02/15/21 TIME: 08:48 Chief Complaint Chief Complaint LATE ENTRY, pt seen 02/14, tried to DC, 3 visits for DC, then he failed the 6 minute walk and required 10 liters oxygen. the DC was cancelled, I spent about 40 minutes on this patient on 02/14 Acute respiratory failure with hypoxia - acute pneumonitis from chemo, on stress steroids Dyspnea - multifactorial with lung cancer and recurrent malignant effusion, Pulm completed a bronch on 02/[address] chest - ground-glass infiltrates in the left lung pneumonitis v lung injury. Right pleural effusion - improved from prior. Has had 4x thoracentesis in the past year. SIRS - with leukopenia. Not in shock and seems possibly a bit fluid overloaded, will given empiric antibiotics but hold off on aggressive IVF. HLD - cont statin Cognitive impairment - to early dementia , cont aricept, namenda, light during day, frequent redirection History of Present Illness History of Present Illness consider thora today Pulm to see cont current he feels well, Vitals/I&O Vitals/I&O: Vital Signs Date Time Temp Pulse Resp B/P (MAP) Pulse Ox O2 Delivery O2 Flow Rate FiO2 02/15/21 07:00 97.3 70 18 102/60 (74) 93 Nasal Cannula 3.0 97.3 I & O 02/14/21 02/14/21 02/15/21 15:00 23:00 07:00 Intake Total 200 ml 0 ml 50 ml Balance 200 ml 0 ml 50 ml Physical Exam Physical Exam: very thin, muscle loss noted General: Alert, Oriented X3 Heart: Regular rate Lungs: Other Abdomen: Soft Extremities: No clubbing Skin: No breakdown Review of Systems Review of Systems: feels improved, would like to DC Assessment and Plan Assessmemt and Plan Problems Medical Problems: (1) Hospital-acquired pneumonia Status: Acute (2) Musculoskeletal pain Status: Acute (3) Person under investigation for COVID-19 Status: Acute Comment Review of Relevant I have reviewed the following items jose enrique (where applicable) has been applied. Medications: Current Medications Medications (Trade) Dose Ordered Sig/Rocío Route PRN Reason Start Time Stop Time Status Last Admin Dose Admin Ringer's Solution 1,000 ml @ 0 mls/hr Q0M ONCE IV 02/14/21 10:30 02/14/21 10:31 DC 02/14/21 10:24 Justifications for Admission Other Justification LUIS MANUEL RAO MD Feb 15, 2021 08:51
--- NOTE | 2021-02-15 09:51 | PDOC ---
PULMONARY PROGRESS NOTES DATE: 02/15/21 TIME: 09:51 Subjective Pt. resting on 5 liters NC no overnight events Vitals Vital Signs Date Time Temp Pulse Resp B/P (MAP) Pulse Ox O2 Delivery O2 Flow Rate FiO2 02/15/21 07:00 97.3 70 18 102/60 (74) 93 Nasal Cannula 3.0 97.3 ROS: No Nausea, No Chest Pain, No Abdominal Pain, No Increase Cough Lungs: Other Cardiovascular: S1, S2 Abdomen: Soft, Non-tender Extremities: No Edema Labs Laboratory Tests Test 02/13/21 15:16 02/14/21 03:50 Erythrocyte Sedimentation Rate 71 (0-15) White Blood Count 4.0 x10^3/uL (4.0-11.0) Red Blood Count 3.23 x10^6/uL (4.30-5.70) Hemoglobin 10.6 g/dL (13.0-17.5) Hematocrit 31.7 % (39.0-53.0) Mean Corpuscular Volume 98 fL (79-100) Mean Corpuscular Hemoglobin 33 pg (25-35) Mean Corpuscular Hemoglobin Concent 33 g/dL (31-37) Red Cell Distribution Width 16.3 % (11.5-14.5) Platelet Count 86 x10^3/uL (140-400) Neutrophils (%) (Auto) 91 % (31-73) Lymphocytes (%) (Auto) 7 % (24-48) Monocytes (%) (Auto) 2 % (0-9) Eosinophils (%) (Auto) 0 % (0-3) Basophils (%) (Auto) 0 % (0-3) Neutrophils # (Auto) 3.7 x10^3/uL (1.8-7.7) Lymphocytes # (Auto) 0.3 x10^3/uL (1.0-4.8) Monocytes # (Auto) 0.1 x10^3/uL (0.0-1.1) Eosinophils # (Auto) 0.0 x10^3/uL (0.0-0.7) Basophils # (Auto) 0.0 x10^3/uL (0.0-0.2) Sodium Level 140 mmol/L (136-145) Potassium Level 3.1 mmol/L (3.5-5.1) Chloride Level 100 mmol/L (98-107) Carbon Dioxide Level 32 mmol/L (21-32) Anion Gap 8 (6-14) Blood Urea Nitrogen 24 mg/dL (8-26) Creatinine 1.4 mg/dL (0.7-1.3) Estimated GFR (Cockcroft-Gault) 48.9 Glucose Level 139 mg/dL (70-99) Calcium Level 7.9 mg/dL (8.5-10.1) Medications Active Scripts Medications Dose Route/Sig Max Daily Dose Days Date Category Calcium Magnesium + D Tablet (Calcium Carb/Mag Oxide/Vit D3) 1 Each Tablet 1 Each PO TID 01/25/21 Reported Donepezil Hcl 10 Mg Tablet 10 Mg PO HS 01/25/21 Reported Namenda (Memantine Hcl) 10 Mg Tablet 1 Tab PO BIDACBL 11/23/20 Reported B12 Active (Mecobalamin) 1,000 Mcg Tab.chew 1,000 Mcg PO DAILYWLUN 08/10/20 Reported Folic Acid 0.4 Mg Tablet 1 Mg PO DAILY 08/10/20 Reported Protonix (Pantoprazole Sodium) 20 Mg Tablet.dr 40 Mg PO DAILY 08/10/20 Reported Impression . IMPRESSION: 1. Acute hypoxemic respiratory failure, multifactorial. 2. Ground glass opacities seen on CT. Suspect possibly drug-induced pneumonitis. The patient is on pembrolizumab. In addition to drug-induced pneumonitis, this could certainly be related to atypical infection versus pulmonary edema. My clinical suspicion is that this is not related to pulmonary edema. 3. Malignant lung cancer. 4. Recurrent pleural effusion-- S/P thoracentesis 02/13/21 5. History of chronic obstructive pulmonary disease. 6. Tobacco dependence, in remission. 7. Previous thoracentesis negative by cytology for malignant cells. Plan . PLAN: Supplemental oxygen to keep sats above 92%, on 5 liters NC S/P diagnostic bronchoscopy on 02/14/21-- follow BAL (negative to date ) Follow Oncology recs Continue antibiotics Continue steroids, dC home on 30mg prednisone until follow up in office S/P right Thoracentesis 02/13/21 with 500 mL of pleural fluid, follow fluid results DVT/GI prophylaxis. Follow up in office 1 week from friday with Dr. Bangura, appointment has been made D/W NATALEE CARSON MD Feb 15, 2021 09:51
[2021-02-15 11:00] VITALS: BP 82/53
--- NOTE | 2021-02-15 11:27 | NUR ---
SW following. Discussed with RN, pt accepted with [facility]. SW trying to reach pt's to have home oxygen arranged, awaiting call back or for pt's to come to [facility]. Discharge order for today. RN notified. SW will continue to follow.
[2021-02-15 15:00] VITALS: BP 126/65
--- NOTE | 2021-02-15 17:27 | CARD ---
MR#: [id number] Date of Study: 02/15/2021 Ordering Physician: NATALEE TERESA, Referring Physician: Rajiv ANDERSEN: Karyn Howard [facility] APPROVED REPORT EXAM: LIMITED Two-dimensional and M-mode echocardiogram with Doppler and color Doppler. Other Information Quality : GoodHR: 63bpm Rhythm : NSR INDICATION Dyspnea Congestive Heart Failure 2D DIMENSIONS IVSd0.6 (0.7-1.1cm)LVDd4.5 (3.9-5.9cm) PWd0.9 (0.7-1.1cm)LVDs2.8 (2.5-4.0cm) FS (%) 37.5 %SV63.2 ml LVEF(%)67.7 (>50%) Mitral Valve MV E [id number]/s Tricuspid Valve TR P. [id number]/sTR Peak Gr.26mmHg LEFT VENTRICLE The left ventricle is normal size. There is normal left ventricular wall thickness. The left ventricu lar systolic function is normal. The ejecion fraction is 60-65%. No regional wall motion abnormalitie s noted. No left ventricle thrombus noted on this study. There is no ventricular septal defect visual ized. There is no left ventricular aneurysm. There is no mass noted in the left ventricle. RIGHT VENTRICLE The right ventricle is normal size. There is normal right ventricular wall thickness. The right ventr icular systolic function is normal. ATRIA The left atrium size is normal. The right atrium is mildly dilated. The interatrial septum is intact with no evidence for an atrial septal defect or patent foramen ovale as noted on 2-D or Doppler imagi ng. AORTIC VALVE The aortic valve is normal in structure and function. No aortic regurgitation is present. There is no aortic valvular stenosis. There is no aortic valvular vegetation. MITRAL VALVE Mitral annular calcification is mild to moderate. There is no evidence of mitral valve prolapse. Ther e is no mitral valve stenosis. Doppler and Color-flow revealed trace to mild mitral regurgitation. TRICUSPID VALVE The tricuspid valve is normal in structure and function. Doppler and Color Flow revealed mild to mode rate tricuspid regurgitation. PAP 33 mmHg. There is no tricuspid valve prolapse or vegetation. There is no tricuspid valve stenosis. PULMONIC VALVE The pulmonary valve is normal in structure and function. There is no pulmonic valvular regurgitation. There is no pulmonic valvular stenosis. GREAT VESSELS The aortic root is normal in size. The IVC is normal in size and collapses >50% with inspiration. PERICARDIAL EFFUSION There is no pleural effusion. There is moderate right pleural effusion. There is no evidence of signi ficant pericardial effusion. <Conclusion> The left ventricular systolic function is normal. The ejecion fraction is 60-65%. No regional wall motion abnormalities noted. Trace to mild mitral regurgitation. Mild to moderate tricuspid regurgitation. Estimated PAP 33 mmHg. There is no evidence of significant pericardial effusion. Signed by : Devan Gautam, Electronically Approved : 02/15/2021 17:27:20
[2021-02-16] MEDS ORDERED: predniSONE 10 MG TABLET PO SCH (09:00)
== END 2021-02-15 16:06 | disposition home health service (06) | DRG 871 ==
LOC: ER 11:21 → 6 SOUTH 14:30
PROVIDERS: ADMIT Internal Medicine; ATTEND Internal Medicine
PROC: 0W993ZZ Drainage of Right Pleural Cavity, Percutaneous Approach (ICD-10-PCS; 2021-02-13)
PROC: 0B9F8ZX Drainage of Right Lower Lung Lobe, Via Natural or Artificial Opening Endoscopic, Diagnostic (ICD-10-PCS; 2021-02-14)
PROC: 0B9J8ZX Drainage of Left Lower Lung Lobe, Via Natural or Artificial Opening Endoscopic, Diagnostic (ICD-10-PCS; principal; 2021-02-14 10:30)
DX: A41.9 Sepsis, unspecified organism (principal); J96.01 Acute respiratory failure with hypoxia; J18.9 Pneumonia, unspecified organism; C34.11 Malignant neoplasm of upper lobe, right bronchus or lung; C34.32 Malignant neoplasm of lower lobe, left bronchus or lung; C79.9 Secondary malignant neoplasm of unspecified site; J44.0 Chronic obstructive pulmonary disease with (acute) lower respiratory infection; J81.1 Chronic pulmonary edema; J91.0 Malignant pleural effusion; D64.9 Anemia, unspecified; D69.59 Other secondary thrombocytopenia; D70.9 Neutropenia, unspecified; E78.00 Pure hypercholesterolemia, unspecified; E78.5 Hyperlipidemia, unspecified; F02.80 Dementia in other diseases classified elsewhere, unspecified severity, without behavioral disturbance, psychotic disturbance, mood disturbance, and anxiety; F17.201 Nicotine dependence, unspecified, in remission; G30.9 Alzheimer's disease, unspecified; I70.0 Atherosclerosis of aorta; Y95 Nosocomial condition; Z20.822 Contact with and (suspected) exposure to COVID-19; Z66 Do not resuscitate; Z85.118 Personal history of other malignant neoplasm of bronchus and lung; Z85.46 Personal history of malignant neoplasm of prostate; M10.9 Gout, unspecified; M19.90 Unspecified osteoarthritis, unspecified site; Z79.899 Other long term (current) drug therapy; Z90.49 Acquired absence of other specified parts of digestive tract
CPT/HCPCS: 31622; 32555; 36415; 71045; 71275; 80048; 80053; 81001; 83735; 83880; 84100; 84484; 85007; 85025; 85379; 85651; 86140; 87040; 87070; 87102; 87116; 87205; 87252; 87801; 93005; 93308; 94618; 94640; 96374; J1650; J1940; J2543; J2704; J2930; J3490; J7060; J7120; U0003; U0005; 97530-GO; 97530-GP; 97535-GO; 99285-25; G0378; J7613